=== PATIENT | male | born 1945 | race Caucasian/White ===

== ENCOUNTER → 2018-12-28 | Outpatient (CLI) | payer MEDICARE ==
--- NOTE | 2018-12-28 13:42 | XR ---
EXAMINATION TYPE: XR lumbosacral spine min 4V DATE OF EXAM: 12/28/2018 CLINICAL HISTORY: Acute low back pain after strain injury 2 days ago TECHNIQUE: Frontal, lateral, and oblique images of the lumbar spine are obtained. COMPARISON: None FINDINGS: There is dextroscoliosis of the lumbar spine. There are 5 lumbar type vertebral bodies maria eugenia ntified. Advanced degenerative disc disease is seen as multilevel intervertebral disc space narrowing , anterior osteophytes, facet arthropathy, and endplate sclerosis. There is mild retrolisthesis of L1 on L2. Posterior projecting osteophytes are seen throughout. Extensive atherosclerosis of the abdomi nal aorta with distal abdominal aortic aneurysm measuring at least 3.2 cm in anterior posterior dimen karoline. Oblique images demonstrate neural foraminal narrowing at all lumbar vertebral levels bilaterall y that would be more accurately assessed on MRI. IMPRESSION: 1. No acute fracture of the lumbar spine. 2. Advanced degenerative disc disease throughout the entirety of the lumbar spine with mild retrolist hesis of L1 on L2, likely on a degenerative basis. Neural foraminal narrowing is seen throughout the lumbar spine. 3. Mild dextroscoliosis of the lumbar spine.
== END ==
LOC: RADXRYALE 13:03
PROVIDERS: ATTEND Internal Medicine
DX: M48.061 Spinal stenosis, lumbar region without neurogenic claudication (principal); M51.36 Other intervertebral disc degeneration, lumbar region; M43.16 Spondylolisthesis, lumbar region; M41.86 Other forms of scoliosis, lumbar region
CPT/HCPCS: 72110

== ENCOUNTER → 2022-08-14 | Outpatient (CLI) | payer MEDICARE ==
[2022-08-14 15:22] LABS: Basophils # (A) 0.02 X 10*3/uL (0.00-0.10); Basophils % (A) 0.3 %; Eosinophils # (A) 0.19 X 10*3/uL (0.04-0.35); Eosinophils % (A) 3.2 %; HCT 36.5 % (39.6-50.0); HGB 11.3 g/dL (13.0-17.0); Immature Grans, Automated 0.5 %; Lymphocytes # (A) 1.67 X 10*3/uL (0.90-5.00); Lymphocytes % (A) 27.7 %; MCH 32.1 pg (27.0-32.0); MCV 103.7 fL (80.0-97.0); Mean Platelet Volume 10.7 fL (9.5-12.2); Monocytes # (A) 0.59 X 10*3/uL (0.20-1.00); Monocytes % (A) 9.8 %; NRBC Per 100 WBC 0 /100 WBCS (0.0-0.0); Neutrophils # (A) 3.52 X 10*3/uL (1.80-7.70); Neutrophils % (A) 58.5 %; Platelet Count 271 X 10*3/uL (140-440); RBC 3.52 X 10*6/uL (4.40-5.60); RDW 15.6 % (11.5-14.5); WBC 6.02 X 10*3/uL (4.50-10.00)
[2022-08-14 15:54] LABS: African American GFR (CKD) 55.8 (60.0-200.0); Anion Gap 8.3 mmol/L (10.00-18.00); BUN/Creat Ratio 18.07 Ratio (12.00-20.00); Blood Urea Nitrogen 25.3 mg/dL (9.0-27.0); Carbon Dioxide 23.7 mmol/L (20.0-27.5); Non-African American GFR(CKD) 48.1 (60.0-200.0); Potassium 5.3 mmol/L (3.5-5.5)
== END | disposition home or self-care (01) ==
LOC: LABPAT 10:24
PROVIDERS: ATTEND Urology
DX: Z01.818 Encounter for other preprocedural examination (principal); C61 Malignant neoplasm of prostate
CPT/HCPCS: 36415; 80048; 85025

== ENCOUNTER 2022-08-15 12:18 | Day surgery (SDC) | payer MEDICARE ==
--- NOTE | 2022-08-14 22:16 | P.GSHP ---
History of Present Illness H&P Date: 08/14/22 Chief Complaint: Prostate cancer The patient is a 76-year-old white male with recently diagnosed prostate cancer. His PSA level was 6.280. ADY revealed a small right-sided nodule. Prostate ultrasound revealed a prostate volume of 13 mL. 6 of 12 biopsies showed Leida 7 (3+4) adenocarcinoma. The Polaris score is 4.2. The patient has elected to be treated with radiation therapy and now comes for SpaceOAR implant to reduce the risk of rectal toxicity. - Cardiovascular Cardiovascular: Reports high blood pressure - Genitourinary (Male) Genitourinary: Reports nocturia Past Medical History Past Medical History: Coronary Artery Disease (CAD), Chest Pain / Angina, Hyperlipidemia, Hypertension, Myocardial Infarction (AR), Osteoarthritis (OA), Prostate Disorder Additional Past Medical History / Comment(s): has a bad valve, (hx of mrsa on valve [facility]) mrsa went throughout body affected many things per spouse. PSA elevated , prostate cancer -intermediate dx. has trouble with rt hand, hx diverticulitis, hernia Last Myocardial Infarction Date:: 2008 History of Any Multi-Drug Resistant Organisms: MRSA Date of last positivie culture/infection: 2017 MDRO Source:: blood Past Surgical History: Appendectomy, Bladder Surgery, Bowel Resection, Coronary Bypass/CABG, Heart Catheterization With Stent Additional Past Surgical History / Comment(s): 4-5 stents, triple bypass at 39 yrs old, prostate bx, colon resection due to diverticulitis, diverticulitis ate into bladder - repaired Past Anesthesia/Blood Transfusion Reactions: No Reported Reaction Additional Past Anesthesia/Blood Transfusion Reaction / Comment(s): blood tranfusion? no issues Date of Last Stent Placement:: 2021 Smoking Status: Current every day smoker - Past Family History Father Family Medical History: Coronary Artery Disease (CAD) Mother Family Medical History: Diabetes Mellitus Sister(s) Family Medical History: Diabetes Mellitus Brother(s) Family Medical History: Diabetes Mellitus Medications and Allergies Home Medications Medication Instructions Recorded Confirmed Type Acetaminophen [Tylenol Extra 500 mg PO DIRECTED PRN 08/13/22 08/13/22 History Strength] Aspirin 81 mg PO HS 08/13/22 08/13/22 History Clopidogrel [Plavix] 75 mg PO DAILY 08/13/22 08/13/22 History Isosorbide Mononitrate ER [Imdur] 60 mg PO DAILY 08/13/22 08/13/22 History Metoprolol Tartrate 12.5 mg PO BID 08/13/22 08/13/22 History Pravastatin Sodium 80 mg PO HS 08/13/22 08/13/22 History Ranolazine [Ranolazine ER] 1,000 mg PO BID 08/13/22 08/13/22 History Unk Iron 1 tab PO HS 08/13/22 08/13/22 History Unk Melatonin 1 tab PO HS 08/13/22 08/13/22 History Unk Stool Softner 1 tab PO HS 08/13/22 08/13/22 History lisinopriL [Prinivil] 10 mg PO DAILY 08/13/22 08/13/22 History Allergies Allergy/AdvReac Type Severity Reaction Status Date / Time latex Allergy Rash/Hives Verified 08/13/22 15:36 Surgical - Exam - General well developed, well nourished, no distress - Respiratory normal respiratory effort - Abdomen Abdomen: soft, non tender, no guarding, no rigid, no rebound - Genitourinary normal penis with no external lesions, testicles non-tender - Rectum Rectum: normal sphincter tone, no masses, other (Right-sided prostate nodule) - Psychiatric oriented to time, oriented to person, oriented to place, speech is normal, memory intact Assessment and Plan (1) Malignant neoplasm of prostate Status: Acute Code(s): C61 - MALIGNANT NEOPLASM OF PROSTATE SNOMED Code(s): 382991541 Plan: The SpaceOar implant has been reviewed in detail with the patient. He understands that the rationale for this is to create separation between the prostate and rectum, thus reducing the risk of radiation proctitis. The mate rial begins to breakdown 12-13 weeks following implant, and is reabsorbed by the body. Risks include anesthesia, bleeding, infection, and perineal discomfort. He understands that if the rectal wall is perforated the procedure will need to be aborted.
[2022-08-15 12:59] VITALS: TEMP 97
[2022-08-15] MEDS ORDERED: ONDANSETRON 4 MG/2 ML VIAL ONE (13:01)
[2022-08-15] MEDS ORDERED: LACTATED RINGERS 1,000 ML IV ONE (13:05)
[2022-08-15] MEDS ORDERED: DEXAMETHASONE SOD PHOSPHATE 4 MG/ML 1 ML VIAL IV ONE (13:15)
[2022-08-15] MEDS ORDERED: MIDAZOLAM 2 MG/2 ML VIAL ONE (14:24)
[2022-08-15] MEDS ORDERED: PROPOFOL 10 MG/ML 20 ML VIAL IV ONE (14:24)
[2022-08-15] MEDS ORDERED: fentaNYL (PF) 50 MCG/ML 2 ML AMP ONE (14:24)
[2022-08-15] MEDS ORDERED: LIDOCAINE 2% INJ 20 MG/ML SQ ONE ×2 (14:26→14:37)
--- NOTE | 2022-08-15 15:04 | P.OP ---
Date of Procedure: 08/15/22 Preoperative Diagnosis: Adenocarcinoma the prostate Postoperative Diagnosis: Same Procedure(s) Performed: SpaceOAR Implant Anesthesia: MAC Surgeon: Henri Snyder Estimated Blood Loss (ml): 5 IV fluids (ml): 400 Pathology: none sent Condition: stable Disposition: PACU Indications for Procedure: The patient is a 76-year-old white male with recently diagnosed prostate cancer. His PSA level was 6.280. ADY revealed a small right-sided nodule. Prostate ul trasound revealed a prostate volume of 13 mL. 6 of 12 biopsies showed Muse 7 (3+4) adenocarcinoma. The Polaris score is 4.2. The patient has elected to be treated with radiation therapy and now comes for SpaceOAR implant to reduce the risk of rectal toxicity. Operative Findings: Over 1 cm separation created between prostate and rectum. Description of Procedure: The patient was taken to the operating room and placed in the dorsolithotomy position, with his legs supported in Hari stirrups. The external genitalia was prepped and draped sterilely. The Bruel and Kjaer transrectal ultrasound probe was placed intrarectally. The prostate was imaged. The probe was then placed within the stabilizing stand. A spinal needle was advanced under ultrasonic guidance to the level of the urogenital diaphragm, and lidocaine was used to infiltrate the tissues as the needle was withdrawn. Next, the SpaceOAR needle was passed through the midline of the perineum, 1-2 cm anterior to the anal opening. The needle was slowly advanced under ultrasonic guidance until the needle tip was located within the fat plane between the prostate and rectum, at the level of the mid prostate gland. The needle was confirmed to be midline on the axial imaging. A small amount of normal saline was injected for hydrodissection. Next, the SpaceOAR components were mixed and loaded into the Y connector per protocol. The Y connector was then connected to the needle, and the components were injected slowly over a course of approximately 12 seconds. A total of 10 ml was injected. Significant distance was created between the prostate and rectum, as desired. It should be noted that at no point was there any concern of rectal perforation. The needle was withdrawn, as well as the transrectal ultrasound probe, and the procedure was terminated. The patient tolerated the procedure well and was taken to the recovery room in stable condition.
[2022-08-15 15:20] VITALS: BP 142/78; PULSE 64; RESP 18
== END 2022-08-15 15:30 | disposition home or self-care (01) ==
LOC: OR 12:18
PROVIDERS: ATTEND Urology
DX: C61 Malignant neoplasm of prostate (principal); I25.10 Atherosclerotic heart disease of native coronary artery without angina pectoris; I25.2 Old myocardial infarction; E78.5 Hyperlipidemia, unspecified; I10 Essential (primary) hypertension; F17.200 Nicotine dependence, unspecified, uncomplicated; Z90.49 Acquired absence of other specified parts of digestive tract; Z98.84 Bariatric surgery status; Z95.5 Presence of coronary angioplasty implant and graft; Z95.1 Presence of aortocoronary bypass graft; Z82.49 Family history of ischemic heart disease and other diseases of the circulatory system; Z83.3 Family history of diabetes mellitus; Z79.82 Long term (current) use of aspirin; Z79.02 Long term (current) use of antithrombotics/antiplatelets; Z79.899 Other long term (current) drug therapy; Z91.040 Latex allergy status
CPT/HCPCS: 55874; C1889; J2001; J2250; J1100; J0690; J2405; J3010; J2704

== ENCOUNTER → 2022-08-16 | Outpatient (CLI) | payer MEDICARE ==
--- NOTE | 2022-08-17 07:35 | MR ---
EXAMINATION TYPE: MR Prostate wo/w con DATE OF EXAM: 08/16/2022 COMPARISON: None. IMAGE QUALITY: Suboptimal but repeat not required. INDICATION: Elevated PSA, prostate cancer. PSA: 6.26 ng/ml on October 17, 2021 increased from 3.97 and 202 Recent Biopsy and Date: July 16, 2022 Pathology Report (If Applicable): Right lateral mid adenocarcinoma Leida grade 3+4 = 7, involving a pproximately 30% of the tissue and measures 2.5 mm in length. Right lateral apex adenocarcinoma, Glea son grade 3+4 = 7, involving 40% of tissue and measures 4 mm in length. Left lateral base adenocarcin ashley Leida grade 3+4 = 7, involving 90% of tissue measures 9 mm in length. Left base adenocarcinoma, Hughson grade 3+4 = 7, approximately 25% of tissue measures 2.5 mm in length, left lateral mid adeno carcinoma, Hughson grade 3+4 = 7, and approximately 40% of tissue measures 4 mm in length with focal periNeural invasion. Left mid adenocarcinoma Hughson grade 3+4 = 7, involving 20% of tissue measuring 2 mm in length., Left lateral apex atypical small asymmetric proliferation TECHNIQUE: Examination was performed using a 3T MRI without an endorectal coil. Multiparametric imaging was perf ormed with T2 mutliplanar sequences, axial diffusion weighted imaging and dynamic contrast enhanced i maging, utilizing 7 mL intravenous Gadavist gadolinium contrast. FINDINGS: Suboptimal with significant patient motion. PROSTATE VOLUME: 3.2 cm SI x 3.0 cm AP x 4.0 cm LR Vol= 20.1 cc PSA DENSITY: 0.31 ng/ml/cc Poor separation of peripheral and transitional zones with diffuse diminished T2 signal in the periphe ral zone. There is 5 mm focus of moderate diminished signal on ADC mapping the lateral left basal to mid zone showing mild increased signal on diffusion-weighted images image 136 series 705 additional a reas of moderately diminished signal on ADC mapping with mild to moderate increased signal on diffusi on-weighted imaging in the left mid zone and base are present. Poorly defined heterogeneous T2 hypoin tense transitional zone. There is posterior spacer. There is poor definition of the capsule along the left base. Seminal vesicles are grossly within normal limits. Urinary bladder shows mild to moderate wall trabeculation and mild wall thickening with several scatt ered diverticula including a prominent right-sided diverticula. No free fluid in the pelvis. No abnor mal bowel dilatation. Some diverticula in the sigmoid colon are present. Visualized osseous structure s are intact. IMPRESSION: Suboptimal study. Normal size prostate with concerning areas particularly throughout the left mid and basal aspects. Highest Assessment Category: 4 MRI Stage: T2a N0 M0 based on review of pelvic images. False negative rates for MRI range from 5-20% depending on risk profile. Assessment Categories: 1 ? Very low (clinically significant cancer is highly unlikely to be present) 2 ? Low (clinically significant cancer is unlikely to be present) 3 ? Intermediate (the presence of clinically significant cancer is equivocal) 4 ? High (clinically significant cancer is likely to be present) 5 ? Very high (clinically significant cancer is highly likely to be present)
== END | disposition home or self-care (01) ==
LOC: RADMRIMAIN 09:10
PROVIDERS: ATTEND Radiology Radiation Oncology
DX: C61 Malignant neoplasm of prostate (principal)
CPT/HCPCS: 72197; A9585

== ENCOUNTER → 2023-09-23 | Outpatient (CLI) | payer MEDICARE ==
[2023-09-23 19:50] LABS: Beta 2 Microglobulin 4.5 mg/L (0.61-2.37); Immunoglobulin M 75.7 mg/dL (40.0-280.0); Protein, Total 6.1 g/dL (6.2-8.2)
[2023-09-24 14:11] LABS: Free Kappa Lt Chain Qnt, Serum 6.47 mg/dL (0.33-1.94); Free Lambda Lt Chain Qnt, Seru 2.85 mg/dL (0.57-2.63)
== END | disposition home or self-care (01) ==
LOC: LABWHC1 13:26
PROVIDERS: ATTEND Internal Medicine
DX: N18.32 Chronic kidney disease, stage 3b (principal)
CPT/HCPCS: 36415; 82232; 82784; 82785; 83883; 84165; 86335

== ENCOUNTER → 2023-10-22 | Outpatient (CLI) | payer MEDICARE ==
--- NOTE | 2023-10-22 15:55 | US ---
EXAMINATION TYPE: US kidneys/renal and bladder DATE OF EXAM: 10/22/2023 COMPARISON: MRI prostate 08/16/2022 CLINICAL INDICATION: Male, 77 years old with history of R31.0 GROSS HEMATURIA; Gross hematuria. EXAM MEASUREMENTS: Right Kidney: 9.6 x 5.0 x 4.5 cm Left Kidney: 9.8 x 4.3 x 4.7 cm Right Kidney: Hyperechoic focus seen at mid: 0.3 x 0.5 x 0.2 cm. Left Kidney: No hydronephrosis or masses seen Bladder: Appears anechoic. Bilateral Jets seen: Yes Complex area seen near the bladder within the right pelvis measurin.6 x 3.7 x 3.2 cm. IMPRESSION: 1. No evidence for obstructive uropathy. 2. Nonobstructing right renal calculus. 3. Complex area of possible fluid in the right pelvis compatible with bladder diverticula seen on pr ior MRI.
== END | disposition home or self-care (01) ==
LOC: RADUSWWP 14:48
PROVIDERS: ATTEND Urology
DX: N20.0 Calculus of kidney (principal); R31.0 Gross hematuria
CPT/HCPCS: 76770

== ENCOUNTER 2023-11-28 04:05 | Inpatient (IN) | payer MEDICARE ==
[2023-11-28 04:32] LABS: Basophils # (A) 0.1 k/uL (0-0.2); Basophils % (A) 0 %; Eosinophils # (A) 0.1 k/uL (0-0.7); Eosinophils % (A) 0 %; HCT 29.1 % (39.0-53.0); HGB 9.2 gm/dL (13.0-17.5); Hypochromasia Marked; Lymphocytes # (A) 2.5 k/uL (1.0-4.8); Lymphocytes % (A) 20 %; MCHC 31.5 g/dL (31.0-37.0); MCV 95.1 fL (80.0-100.0); Mean Platelet Volume 8.3; Monocytes # (A) 0.5 k/uL (0-1.0); Monocytes % (A) 4 %; Neutrophils # (A) 9.6 k/uL (1.3-7.7); Neutrophils % (A) 74 %; Platelet Count 336 k/uL (150-450); RBC 3.06 m/uL (4.30-5.90); RDW 15.6 % (11.5-15.5); WBC 12.9 k/uL (3.8-10.6)
[2023-11-28] MEDS: IPRATROPIUM-ALBUTEROL 3 ML NEB INHALATION STA ×2 (04:39→06:08)
--- NOTE | 2023-11-28 04:46 | ED ---
SOB HPI - General Chief Complaint: Shortness of Breath Stated Complaint: Difficulty Breathing Time Seen by Provider: 11/28/23 04:09 Source: patient, EMS, RN notes reviewed, old records reviewed Mode of arrival: EMS Limitations: no limitations - History of Present Illness Initial Comments: This is a 77-year-old male to ER for evaluation of significant dyspnea shortness of breath history of asthma COPD. Patient has increased cough and congestion without chest pain patient states symptoms began last night before bed and have only progressed MD Complaint: shortness of breath, cough -: hour(s) Radiation: back Severity: moderate Severity scale (1-10): 3 Quality: aching, throbbing Consistency: constant Improves With: nothing Worsens With: nothing Known History Of: COPD, asthma, diabetes Associated Symptoms: denies other symptoms - Related Data Home Medications Medication Instructions Recorded Confirmed Aspirin 81 mg PO HS 08/13/22 11/28/23 Clopidogrel [Plavix] 75 mg PO DAILY 08/13/22 11/28/23 Metoprolol Tartrate 12.5 mg PO BID 08/13/22 11/28/23 Pravastatin Sodium 80 mg PO HS 08/13/22 11/28/23 Albuterol Sulfate [Albuterol 1 - 2 puff PO RT-Q6H PRN 11/28/23 11/28/23 Sulfate Hfa] Docusate Sodium [Dok] 100 mg PO DAILY PRN 11/28/23 11/28/23 Ferrous Sulfate [Feosol] 325 mg PO DAILY 11/28/23 11/28/23 Fluticasone/Umeclidin/Vilanter 1 puff INHALATION RT-DAILY 11/28/23 11/28/23 [Trelegy Ellipta 100-62.5-25] Hyaluronic Acid 850 mg PO DAILY 11/28/23 11/28/23 Loratadine [Claritin] 10 mg PO DAILY 11/28/23 11/28/23 Multivitamins, Thera [Multivitamin 1 tab PO DAILY 11/28/23 11/28/23 (formulary)] Ranolazine [Ranexa] 1,000 mg PO BID 11/28/23 11/28/23 Tamsulosin HCl [Flomax] 0.4 mg PO BID 11/28/23 11/28/23 Allergies Allergy/AdvReac Type Severity Reaction Status Date / Time latex Allergy Rash/Hives Verified 11/28/23 09:45 Review of Systems ROS Statement: Those systems with pertinent positive or pertinent negative responses have been documented in the HPI. ROS Other: All systems not noted in ROS Statement are negative. Past Medical History Past Medical History: Coronary Artery Disease (CAD), Chest Pain / Angina, Hyperlipidemia, Hypertension, Myocardial Infarction ([place]), Osteoarthritis (OA), Prostate Disorder Additional Past Medical History / Comment(s): has a bad valve, (hx of mrsa on valve [facility]) mrsa went throughout body affected many things per spouse. PSA elevated , prostate cancer -intermediate dx. has trouble with rt hand, hx diverticulitis, hernia Last Myocardial Infarction Date:: 2008 History of Any Multi-Drug Resistant Organisms: MRSA Date of last positivie culture/infection: 2017 MDRO Source:: blood Past Surgical History: Appendectomy, Bladder Surgery, Bowel Resection, Coronary Bypass/CABG, Heart Catheterization With Stent Additional Past Surgical History / Comment(s): 4-5 stents, triple bypass at 39yrs old, prostate bx, colon resection due to diverticulitis, diverticulitis ate into bladder - repaired Past Anesthesia/Blood Transfusion Reactions: No Reported Reaction Additional Past Anesthesia/Blood Transfusion Reaction / Comment(s): blood tranfusion? no issues Date of Last Stent Placement:: 2021 Past Psychological History: No Psychological Hx Reported Smoking Status: Current every day smoker Past Alcohol Use History: None Reported Past Drug Use History: None Reported - Past Family History Father Family Medical History: Coronary Artery Disease (CAD) Mother Family Medical History: Diabetes Mellitus Sister(s) Family Medical History: Diabetes Mellitus Brother(s) Family Medical History: Diabetes Mellitus General Exam Limitations: no limitations General appearance: alert, anxious, in distress Head exam: Present: atraumatic, normocephalic, normal inspection Eye exam: Present: normal appearance, PERRL, EOMI. Absent: scleral icterus, conjunctival injection, periorbital swelling ENT exam: Present: normal exam, mucous membranes moist Neck exam: Present: normal inspection. Absent: tenderness, meningismus, lymphadenopathy Respiratory exam: Present: respiratory distress, wheezes, rales, rhonchi, accessory muscle use, decreased breath sounds, prolonged expiratory. Absent: stridor Cardiovascular Exam: Present: regular rate, normal rhythm, normal heart sounds. Absent: systolic murmur, diastolic murmur, rubs, gallop, clicks GI/Abdominal exam: Present: soft, normal bowel sounds. Absent: distended, tenderness, guarding, rebound, rigid Extremities exam: Present: normal inspection, full ROM, normal capillary refill. Absent: tenderness, pedal edema, joint swelling, calf tenderness Back exam: Present: normal inspection Neurological exam: Present: alert, oriented X3, CN II-XII intact Psychiatric exam: Present: normal affect, normal mood Skin exam: Present: warm, dry, intact, normal color. Absent: rash Course Vital Signs 11/28/23 11/28/23 11/28/23 04:06 04:44 05:02 Temperature 98.1 F Pulse Rate 87 76 83 Pulse Rate [ Right] Respiratory 22 Rate Blood Pressure 170/69 Blood Pressure [Right Arm] O2 Sat by Pulse 94 L Oximetry 11/28/23 11/28/23 11/28/23 05:12 06:00 06:22 Temperature Pulse Rate 81 84 88 Pulse Rate [ Right] Respiratory 20 12 Rate Blood Pressure 108/65 91/56 Blood Pressure [Right Arm] O2 Sat by Pulse 94 L 93 L Oximetry 11/28/23 11/28/23 11/28/23 08:03 11:43 14:00 Temperature Pulse Rate 91 86 66 Pulse Rate [ Right] Respiratory 20 18 18 Rate Blood Pressure 157/76 135/72 100/51 Blood Pressure [Right Arm] O2 Sat by Pulse 93 L 93 L 93 L Oximetry 11/28/23 11/28/23 11/28/23 15:30 15:42 17:02 Temperature Pulse Rate 73 71 80 Pulse Rate [ Right] Respiratory 18 18 18 Rate Blood Pressure 156/79 Blood Pressure [Right Arm] O2 Sat by Pulse 97 96 Oximetry 11/28/23 17:17 Temperature 97.8 F Pulse Rate Pulse Rate [ 94 Right] Respiratory 18 Rate Blood Pressure Blood Pressure 170/70 [Right Arm] O2 Sat by Pulse 99 Oximetry - Reevaluation(s) Reevaluation #1: 11/28/23 06:33 Jake medical record is reviewed Reevaluation #2: 11/28/23 06:33 Patient symptoms are improving Reevaluation #3: 11/28/23 06:33 Informed of results questions answered Reevaluation #4: Was pt. sent in by a medical professional or institution (Dr., PA, ACCOUNTING MANAGER, urgent care, hospital, or [facility]...) When possible be specific @ -no Did you speak to anyone other than the patient for history (EMS, parent, family, police, friend...)? What history was obtained from this source @ -no Did you review nursing and triage notes (agree or disagree)? Why? @ -agree Are old charts reviewed (outside hosp., previous admission, EMS record, old EKG, old radiological studies, urgent care reports/EKG's, [facility] records)? Report findings @ -yes Differential Diagnosis (chest pain, altered mental status, abdominal pain women, abdominal pain men, vaginal bleeding, weakness, fever, dyspnea, syncope, headache, dizziness, GI bleed, back pain, seizure, CVA, palpatations, mental health, musculoskeletal)? @ -prior EKG interpreted by me (3pts min.). @ -yes X-rays interpreted by me (1pt min.). @ -yes positive for CHF CT interpreted by me (1pt min.). @ -no U/S interpreted by me (1pt. min.). @ -no What testing was considered but not performed or refused? (CT, X-rays, U/S, labs)? Why? @ -none What meds were considered but not given or refused? Why? @ -none Did you discuss the management of the patient with other professionals (professionals i.e. DOTTIE Quick, ACCOUNTING MANAGER, lab, RT, psych nurse, director of social services, manager pipeline, teacher, district fire management officer, special education case manager)? Give summary @ -no Was smoking cessation discussed for >3mins.? @ -no Was critical care preformed (if so, how long)? @ -yes31 Were there social determinants of health that impacted care today? How? (Homelessness, low income, unemployed, alcoholism, drug addiction, transportation, low edu. Level, literacy, decrease access to med. care, alf, rehab)? @ -none Was there de-escalation of care discussed even if they declined (Discuss DNR or withdrawal of care, Hospice)? DNR status @ -no What co-morbidities impacted this encounter? (DM, HTN, Smoking, COPD, CAD, Cancer, CVA, ARF, Chemo, Hep., AIDS, mental health diagnosis, sleep apnea, morbid obesity)? @ -none Was patient admitted / discharged? Hospital course, mention meds given and route, prescriptions, significant lab abnormalities, going to OR and other pertinent info. @ - 77 male will admit for significant COPD exacerbation and shortness of br eath patient has some findings of CHF, will admit for further supportive care patient showing severe hypoxia and respiratory failure Admitted Undiagnosed new problem with uncertain prognosis? @ -no Drug Therapy requiring intensive monitoring for toxicity (Heparin, Nitro, Insulin, Cardizem)? @ -no Were any procedures done? @ -no Diagnosis/symptom? @ -Respiratory failure and hypoxia COPD and CHF Acute, or Chronic, or Acute on Chronic? @ -Acute Uncomplicated (without systemic symptoms) or Complicated (systemic symptoms)? @ -Complicated Side effects of treatment? @ -no Exacerbation, Progression, or Severe Exacerbation? @ -exacerbation Poses a threat to life or bodily function? How? (Chest pain, [place], NH, pneumonia, PE, COPD, DKA, ARF, appy, cholecystitis, CVA, Diverticulitis, Homicidal, Suicidal, threat to staff... and all critical care pts) @ -yes respiratory failure Reevaluation #5: Differential Dyspnea: Coronary syndrome, arrhythmia, tamponade, asthma, COPD, pulmonary embolism, pneumonia, pneumothorax, pulmonary effusion, anaphylaxis, diabetic ketoacidosis, flailed chest, pulmonary contusion, diaphragmatic rupture, anemia, neuromuscular, this is not meant to be an all-inclusive list. - Consultations Consultation #1: Spoke with admitting physicians, [facility] who agreed to admit this patient Medical Decision Making - Medical Decision Making 77 male will admit for significant COPD exacerbation and shortness of breath patient has some findings of CHF, will admit for further supportive care patient showing severe hypoxia and respiratory failure - Lab Data Result diagrams: 11/30/23 17:59 11/30/23 03:13 Lab Results 11/28/23 11/28/23 11/28/23 Range/Units 04:14 04:14 04:14 WBC 12.9 H (3.8-10.6) k/uL RBC 3.06 L (4.30-5.90) m/uL Hgb 9.2 L (13.0-17.5) gm/dL Hct 29.1 L (39.0-53.0) % MCV 95.1 (80.0-100.0) fL MCH 30.0 (25.0-35.0) pg MCHC 31.5 (31.0-37.0) g/dL RDW 15.6 H (11.5-15.5) % Plt Count 336 (150-450) k/uL MPV 8.3 Neutrophils % 74 % Lymphocytes % 20 % Monocytes % 4 % Eosinophils % 0 % Basophils % 0 % Neutrophils # 9.6 H (1.3-7.7) k/uL Lymphocytes # 2.5 (1.0-4.8) k/uL Monocytes # 0.5 (0-1.0) k/uL Eosinophils # 0.1 (0-0.7) k/uL Basophils # 0.1 (0-0.2) k/uL Hypochromasia Marked PT 10.3 (10.0-12.5) sec INR 0.9 (<1.2) APTT 30.6 H (22.0-30.0) sec D-Dimer 1.33 H (<0.60) mg/L FEU Sodium 138 (137-145) mmol/L Potassium 6.0 H (3.5-5.1) mmol/L Chloride 110 H (98-107) mmol/L Carbon Dioxide 19 L (22-30) mmol/L Anion Gap 9 mmol/L BUN 33 H (9-20) mg/dL Creatinine 1.74 H (0.66-1.25) mg/dL Est GFR (CKD-EPI)AfAm 43 (>60 ml/min/1.73 sqM) Est GFR (CKD-EPI)NonAf 37 (>60 ml/min/1.73 sqM) Glucose 123 H (74-99) mg/dL Plasma Lactic Acid Chung (0.7-2.0) mmol/L Calcium 8.4 (8.4-10.2) mg/dL Magnesium 2.1 (1.6-2.3) mg/dL Total Bilirubin 0.9 (0.2-1.3) mg/dL AST 63 H (17-59) U/L ALT 24 (4-49) U/L Alkaline Phosphatase 43 (38-126) U/L Troponin I (0.000-0.034) ng/mL NT-Pro-B Natriuret Pep 648 pg/mL Total Protein 6.9 (6.3-8.2) g/dL Albumin 3.4 L (3.5-5.0) g/dL 11/28/23 11/28/23 Range/Units 04:14 04:14 WBC (3.8-10.6) k/uL RBC (4.30-5.90) m/uL Hgb (13.0-17.5) gm/dL Hct (39.0-53.0) % MCV (80.0-100.0) fL MCH (25.0-35.0) pg MCHC (31.0-37.0) g/dL RDW (11.5-15.5) % Plt Count (150-450) k/uL MPV Neutrophils % % Lymphocytes % % Monocytes % % Eosinophils % % Basophils % % Neutrophils # (1.3-7.7) k/uL Lymphocytes # (1.0-4.8) k/uL Monocytes # (0-1.0) k/uL Eosinophils # (0-0.7) k/uL Basophils # (0-0.2) k/uL Hypochromasia PT (10.0-12.5) sec INR (<1.2) APTT (22.0-30.0) sec D-Dimer (<0.60) mg/L FEU Sodium (137-145) mmol/L Potassium (3.5-5.1) mmol/L Chloride (98-107) mmol/L Carbon Dioxide (22-30) mmol/L Anion Gap mmol/L BUN (9-20) mg/dL Creatinine (0.66-1.25) mg/dL Est GFR (CKD-EPI)AfAm (>60 ml/min/1.73 sqM) Est GFR (CKD-EPI)NonAf (>60 ml/min/1.73 sqM) Glucose (74-99) mg/dL Plasma Lactic Acid Chung 1.6 (0.7-2.0) mmol/L Calcium (8.4-10.2) mg/dL Magnesium (1.6-2.3) mg/dL Total Bilirubin (0.2-1.3) mg/dL AST (17-59) U/L ALT (4-49) U/L Alkaline Phosphatase (38-126) U/L Troponin I 0.028 (0.000-0.034) ng/mL NT-Pro-B Natriuret Pep pg/mL Total Protein (6.3-8.2) g/dL Albumin (3.5-5.0) g/dL - EKG Data -: EKG Interpreted by Me (EKG is sinus 77 [place] 136 QRS 92 QTc 440) - Radiology Data Radiology results: report reviewed (Chest x-ray is negative for acute disease CTA), image reviewed Critical Care Time Critical Care Time: Yes Total Critical Care Time: 31 Disposition Clinical Impression: Acute exacerbation of chronic obstructive pulmonary disease, Systolic congestive heart failure, Hypoxia, Respiratory failure Disposition: ADMITTED IP TO THIS HOSP Condition: Serious Is patient prescribed a controlled substance at d/c from ED?: No Time of Disposition: 06:30
[2023-11-28 04:47] LABS: ALT 24 U/L (4-49); African American GFR (CKD) 43 (>60 ml/min/1.73 sqM); Anion Gap 9 mmol/L; Blood Urea Nitrogen 33 mg/dL (9-20); Calcium 8.4 mg/dL (8.4-10.2); Carbon Dioxide 19 mmol/L (22-30); Chloride 110 mmol/L (98-107); Glucose 123 mg/dL (74-99); Non-African American GFR(CKD) 37 (>60 ml/min/1.73 sqM); Sodium 138 mmol/L (137-145)
[2023-11-28 04:55] LABS: NT-Pro-B-Type Natriuretic Pept 648 pg/mL
[2023-11-28 05:04] LABS: AST 63 U/L (17-59); Albumin 3.4 g/dL (3.5-5.0); Alkaline Phosphatase 43 U/L (38-126); Magnesium 2.1 mg/dL (1.6-2.3); Total Bilirubin 0.9 mg/dL (0.2-1.3); Total Protein 6.9 g/dL (6.3-8.2)
[2023-11-28 05:26] LABS: INR 0.9 (<1.2); Partial Thromboplastin Time 30.6 sec (22.0-30.0); Prothrombin Time 10.3 sec (10.0-12.5)
[2023-11-28] MEDS: SODIUM CHLORIDE 0.9% 1,000 ML IV SCH ×2 (06:37→08:01)
[2023-11-28] MEDS: SODIUM CHLORIDE 0.9% 1,000 ML IV STA (06:39)
[2023-11-28] MEDS ORDERED: NALOXONE 0.4 MG/ML 1 ML VIAL IV PRN (07:00)
[2023-11-28] MEDS ORDERED: LORazepam 0.5 MG TAB PO PRN (07:00)
[2023-11-28] MEDS ORDERED: MORPHINE SULFATE 4 MG/ML SYRINGE IV PRN (07:00)
[2023-11-28] MEDS ORDERED: ONDANSETRON 4 MG/2 ML VIAL IVP PRN (07:00)
[2023-11-28] MEDS: methylPREDNISolone SOD SUCCI 125 MG/2 ML VIAL IV STA (08:01)
--- NOTE | 2023-11-28 08:14 | XR ---
EXAMINATION TYPE: XR chest 1V portable DATE OF EXAM: 11/28/2023 Comparison: None Clinical History: 77-year-old male sob Findings: Median sternotomy wires are present with post-CABG clips. Heart borderline enlarged. Increased inters titial densities especially in the lower lungs. No pleural effusion. Posterior thoracic spinal fusion hardware. Impression: Post-CABG changes. Borderline heart size and interstitial changes. Consider mild CHF.
--- NOTE | 2023-11-28 08:29 | CT ---
EXAMINATION TYPE: CT angio chest DATE OF EXAM: 11/28/2023 7:51 AM COMPARISON: None HISTORY: RODRIGO X [address] DLP: 330.5 mGycm Automated exposure control for dose reduction was used. CONTRAST: CTA scan of the thorax is performed without and with IV Contrast, patient injected with 100 ML mL of Isovue 370, pulmonary embolism protocol. . FINDINGS: LUNGS: Airway is patent and there is diffuse emphysematous changes. Subsegmental changes involving th e lungs for which atelectasis is favored over pneumonia but should be correlated clinically. No sizab le pleural effusion or pneumothorax. Calcification near the right hepatic capsular hemidiaphragm may be related to granuloma. There is a basilar and central bronchiectasis. There is a 3 mm nodule in the right lower lobe image 111. MEDIASTINUM: Suboptimal enhancement of the pulmonary arteries due to artifact and heterogeneous enhan cement. Assessment near the pulmonic valve limited due to artifact. There is no central pulmonary emb olism. Third order and distal branches are limited. Atherosclerotic change of the aorta. No aneurysm. No sizable pericardial effusion. Borderline mediastinal and hilar lymphadenopathy. The heart is enla rged. OTHER: Extensive postsurgical changes involving the vertebral, severe degenerative disc disease. Scl erotic changes in the midthoracic spine are nonspecific. If there is concern for infection or hardwar e abnormality correlate with MRI. Sternotomy wires and clips are noted. Reflux of contrast into the IVC and hepatic veins can be associated with elevated right heart pressur e or tricuspid insufficiency. Small hiatal hernia. Thickening of the adrenal glands. IMPRESSION: 1. Limited exam demonstrates no central pulmonary embolism. Distal branches are limited. 2. Diffuse emphysematous changes with basilar subsegmental atelectasis favored over pneumonia but pat uld be confirmed with clinical correlation. 3. Reflux of contrast into the hepatic vein and IVC can be associated with elevated right heart press ures or tricuspid insufficiency. 4 mm right lower lobe pulmonary nodule recommend 12 month follow-up cord is identified.
[2023-11-28] MEDS ORDERED: DOCUSATE 100 MG CAP PO PRN (11:00)
--- NOTE | 2023-11-28 11:07 | P.HPIM ---
History of Present Illness Patient pleasant 77-year-old male came with complaints of shortness of breath and patient is reporting clear dysfunction at this time patient does have history of COPD continues to smoke about 10 to 15 cigarettes/day. Patient was having some dry cough. Chest x-ray did not show any pneumonia CT angio of the chest was done which did not show pulmonary embolism but did show a 12 mm pulmonary nodule. Patient is feeling much better at this time after breathing treatments and systemic steroids. Patient was found to have elevated serum creatinine of 1.7 baseline is around 1.3-1.4 patient's serum potassium is high at 6 but it is a hemolyzed sample. REVIEW OF SYSTEMS: All other systems are negative except those mentioned in the HPI PHYSICAL EXAMINATION: GENERAL: The patient is alert and oriented x3, not in any acute distress. Well developed, well nourished. HEENT: Pupils are round and equally reacting to light. EOMI. No scleral icterus. No conjunctival pallor. Normocephalic, atraumatic. No pharyngeal erythema. No th yromegaly. CARDIOVASCULAR: S1 and S2 present. No murmurs, rubs, or gallops. PULMONARY: Significantly decreased air entry to bilateral lung reyes no wheezing or crackles were appreciated. ABDOMEN: Soft, nontender, nondistended, normoactive bowel sounds. No palpable organomegaly. MUSCULOSKELETAL: No joint swelling or deformity. EXTREMITIES: No cyanosis, clubbing, or pedal edema. NEUROLOGICAL: Gross neurological examination did not reveal any focal deficits. SKIN: No rashes. Assessment and plan -Acute hypoxic and hypercapnic respiratory failure secondary to COPD exacerbation nicotine cessation counseling was provided patient was started on systemic steroids and additional treatments and azithromycin. No evidence of pneumonia at this time -Pulmonary nodule follow-up as an outpatient -Hyperkalemia secondary to analysis repeat potassium again. Still high will use Lokelma and low potassium diet at the time patient is not on any medication that increases potassium -Acute renal failure on chronic kidney disease stage III IV fluids will be continued because of hyperchloremia patient will be switched to half-normal saline and these can be discontinued tomorrow -Coronary disease resumed on home medications -Benign prostatic hypertrophy -Hyperlipidemia -Hypertension -Continue nicotine use: Counseling was provided -GI prophylaxis Pepcid DVT prophylaxis: Subcutaneous heparin Past Medical History Past Medical History: Coronary Artery Disease (CAD), Chest Pain / Angina, Hyperlipidemia, Hypertension, Myocardial Infarction ([place]), Osteoarthritis (OA), Prostate Disorder Additional Past Medical History / Comment(s): has a bad valve, (hx of mrsa on valve [facility]) mrsa went throughout body affected many things per spouse. PSA elevated , prostate cancer -intermediate dx. has trouble with rt hand, hx divert iculitis, hernia Last Myocardial Infarction Date:: 2008 History of Any Multi-Drug Resistant Organisms: MRSA Date of last positivie culture/infection: 2017 MDRO Source:: blood Past Surgical History: Appendectomy, Bladder Surgery, Bowel Resection, Coronary Bypass/CABG, Heart Catheterization With Stent Additional Past Surgical History / Comment(s): 4-5 stents, triple bypass at 39yrs old, prostate bx, colon resection due to diverticulitis, diverticulitis ate into bladder - repaired Past Anesthesia/Blood Transfusion Reactions: No Reported Reaction Additional Past Anesthesia/Blood Transfusion Reaction / Comment(s): blood tranfusion? no issues Date of Last Stent Placement:: 2021 Past Psychological History: No Psychological Hx Reported Smoking Status: Current every day smoker Past Alcohol Use History: None Reported Past Drug Use History: None Reported - Past Family History Father Family Medical History: Coronary Artery Disease (CAD) Mother Family Medical History: Diabetes Mellitus Sister(s) Family Medical History: Diabetes Mellitus Brother(s) Family Medical History: Diabetes Mellitus Medications and Allergies Home Medications Medication Instructions Recorded Confirmed Type Aspirin 81 mg PO HS 08/13/22 11/28/23 History Clopidogrel [Plavix] 75 mg PO DAILY 08/13/22 11/28/23 History Metoprolol Tartrate 12.5 mg PO BID 08/13/22 11/28/23 History Pravastatin Sodium 80 mg PO HS 08/13/22 11/28/23 History Albuterol Sulfate [Albuterol 1 - 2 puff PO RT-Q6H PRN 11/28/23 11/28/23 History Sulfate Hfa] Docusate Sodium [Dok] 100 mg PO DAILY PRN 11/28/23 11/28/23 History Ferrous Sulfate [Feosol] 325 mg PO DAILY 11/28/23 11/28/23 History Fluticasone/Umeclidin/Vilanter 1 puff INHALATION RT-DAILY 11/28/23 11/28/23 History [Trelegy Ellipta 100-62.5-25] Hyaluronic Acid 850 mg PO DAILY 11/28/23 11/28/23 History Loratadine [Claritin] 10 mg PO DAILY 11/28/23 11/28/23 History Multivitamins, Thera [Multivitamin 1 tab PO DAILY 11/28/23 11/28/23 History (formulary)] Ranolazine [Ranexa] 1,000 mg PO BID 11/28/23 11/28/23 History Tamsulosin HCl [Flomax] 0.4 mg PO BID 11/28/23 11/28/23 History Allergies Allergy/AdvReac Type Severity Reaction Status Date / Time latex Allergy Rash/Hives Verified 11/28/23 09:45 Physical Exam Vitals: Vital Signs Temp Pulse Resp BP Pulse Ox 11/28/23 08:03 91 20 157/76 93 L 11/28/23 06:22 88 11/28/23 06:00 84 12 91/56 93 L 11/28/23 05:12 81 20 108/65 94 L 11/28/23 05:02 83 11/28/23 04:44 76 11/28/23 04:06 98.1 F 87 22 170/69 94 L Intake and Output 11/27/23 11/28/23 11/28/23 22:59 06:59 14:59 Other: Weight 65.317 kg Results CBC & Chem 7: 11/28/23 04:14 11/28/23 04:14 Labs: Abnormal Lab Results - Last 24 Hours (Table) 11/28/23 11/28/23 11/28/23 Range/Units 04:14 04:14 04:14 WBC 12.9 H (3.8-10.6) k/uL RBC 3.06 L (4.30-5.90) m/uL Hgb 9.2 L (13.0-17.5) gm/dL Hct 29.1 L (39.0-53.0) % RDW 15.6 H (11.5-15.5) % Neutrophils # 9.6 H (1.3-7.7) k/uL APTT 30.6 H (22.0-30.0) sec D-Dimer 1.33 H (<0.60) mg/L FEU Potassium 6.0 H (3.5-5.1) mmol/L Chloride 110 H (98-107) mmol/L Carbon Dioxide 19 L (22-30) mmol/L BUN 33 H (9-20) mg/dL Creatinine 1.74 H (0.66-1.25) mg/dL Glucose 123 H (74-99) mg/dL AST 63 H (17-59) U/L Albumin 3.4 L (3.5-5.0) g/dL
[2023-11-28] MEDS: IPRATROPIUM-ALBUTEROL 3 ML NEB INHALATION SCH (11:23)
[2023-11-28] MEDS: SODIUM CHLORIDE 0.45% 1,000 ML IV SCH (11:40)
[2023-11-28] MEDS: FAMOTIDINE 20 MG TAB PO SCH (11:40)
[2023-11-28] MEDS: AZITHROMYCIN 500 MG TAB PO SCH (11:40)
[2023-11-28] MEDS: TAMSULOSIN 0.4 MG CAP.ER.24H PO SCH (11:40)
[2023-11-28] MEDS: METOPROLOL TARTRATE 12.5 MG TAB PO SCH (11:40)
[2023-11-28] MEDS: CLOPIDOGREL 75 MG TAB PO SCH (11:40)
[2023-11-28] MEDS ORDERED: methylPREDNISolone SOD SUCCI 125 MG/2 ML VIAL IV SCH (12:00)
[2023-11-28] MEDS: ALBUTEROL NEBULIZED 2.5 MG/3 ML INHALATION SCH (12:14)
--- NOTE | 2023-11-28 13:05 | P.NPCON ---
History of Present Illness - Reason for Consult acute renal failure - History of Present Illness 77-year-old male with a past medical history of CAD, hyperlipidemia, COPD, hypertension, and OA presented to the ED due to dyspnea and shortness of breath. Nephrology consulted for YVROSE. Creatinine on admission was 1.74. Patient's baseline creatinine is 1.4- 1.5 Hypotensive on admission systolic 91 No NSAIDs noted on home med list. No MARTY inhibitor or ARB's noted in current home med list. Potassium was elevated 6.0, rechecked and found to be 4.6. Patient is voiding, bladder scan was 121 ml. IV fluids started Glucose was not elevated. No obvious GI bleed but patient reports having dark stools and take oral iron supplements. Past Medical History Past Medical History: Coronary Artery Disease (CAD), Chest Pain / Angina, Hyperlipidemia, Hypertension, Myocardial Infarction ([place]), Osteoarthritis (OA), Prostate Disorder Additional Past Medical History / Comment(s): has a bad valve, (hx of mrsa on valve [facility]) mrsa went throughout body affected many things per spouse. PSA elevated , prostate cancer -intermediate dx. has trouble with rt hand, hx diverticulitis, hernia Last Myocardial Infarction Date:: 2008 History of Any Multi-Drug Resistant Organisms: MRSA Date of last positivie culture/infection: 2017 MDRO Source:: blood Past Surgical History: Appendectomy, Bladder Surgery, Bowel Resection, Coronary Bypass/CABG, Heart Catheterization With Stent Additional Past Surgical History / Comment(s): 4-5 stents, triple bypass at 39yrs old, prostate bx, colon resection due to diverticulitis, diverticulitis ate into bladder - repaired Past Anesthesia/Blood Transfusion Reactions: No Reported Reaction Additional Past Anesthesia/Blood Transfusion Reaction / Comment(s): blood tranfusion? no issues Date of Last Stent Placement:: 2021 Past Psychological History: No Psychological Hx Reported Smoking Status: Current every day smoker Past Alcohol Use History: None Reported Past Drug Use History: None Reported - Past Family History Father Family Medical History: Coronary Artery Disease (CAD) Mother Family Medical History: Diabetes Mellitus Sister(s) Family Medical History: Diabetes Mellitus Brother(s) Family Medical History: Diabetes Mellitus Medications and Allergies Home Medications Medication Instructions Recorded Confirmed Type Aspirin 81 mg PO HS 08/13/22 11/28/23 History Clopidogrel [Plavix] 75 mg PO DAILY 08/13/22 11/28/23 History Metoprolol Tartrate 12.5 mg PO BID 08/13/22 11/28/23 History Pravastatin Sodium 80 mg PO HS 08/13/22 11/28/23 History Albuterol Sulfate [Albuterol 1 - 2 puff PO RT-Q6H PRN 11/28/23 11/28/23 History Sulfate Hfa] Docusate Sodium [Dok] 100 mg PO DAILY PRN 11/28/23 11/28/23 History Ferrous Sulfate [Feosol] 325 mg PO DAILY 11/28/23 11/28/23 History Fluticasone/Umeclidin/Vilanter 1 puff INHALATION RT-DAILY 11/28/23 11/28/23 History [Trelegy Ellipta 100-62.5-25] Hyaluronic Acid 850 mg PO DAILY 11/28/23 11/28/23 History Loratadine [Claritin] 10 mg PO DAILY 11/28/23 11/28/23 History Multivitamins, Thera [Multivitamin 1 tab PO DAILY 11/28/23 11/28/23 History (formulary)] Ranolazine [Ranexa] 1,000 mg PO BID 11/28/23 11/28/23 History Tamsulosin HCl [Flomax] 0.4 mg PO BID 11/28/23 11/28/23 History Allergies Allergy/AdvReac Type Severity Reaction Status Date / Time latex Allergy Rash/Hives Verified 11/28/23 09:45 Physical Exam Vitals: Vital Signs Temp Pulse Resp BP Pulse Ox 11/28/23 08:03 91 20 157/76 93 L 11/28/23 06:22 88 11/28/23 06:00 84 12 91/56 93 L 11/28/23 05:12 81 20 108/65 94 L 11/28/23 05:02 83 11/28/23 04:44 76 11/28/23 04:06 98.1 F 87 22 170/69 94 L Intake and Output 11/27/23 11/28/23 11/28/23 22:59 06:59 14:59 Other: Weight 65.317 kg General: non toxic, no distress, appears at stated age, normal weight Derm: no unusual rashes/lesions, warm Head: atraumatic, normocephalic, symmetric Eyes: EOMI, no lid lag, anicteric sclera, pupils equal round reactive to light ENT: Nose and ears atraumatic Neck: No cervical lymphadenopathy, trachea midline, supple Mouth: no lip lesion, mucus membranes moist Cardiovascular: S1S2 reg, no murmur, positive dorsalis pedis pulse bilateral, no edema Lungs: Decreased air entry bilaterally, no rhonchi, no rales, no accessory muscle use Abdominal: soft, nontender to palpation, no guarding Ext: muscle strength 5 out of 5 in all 4 extremities grossly, no gross muscle a trophy, no contractures Neuro: CN II-XI grossly intact, no gross focal neuro deficits Psych: Alert, oriented, appropriate affect Results - Lab Results Most recent lab results Calcium 8.4 mg/dL (8.4-10.2) 11/28/23 04:14 Magnesium 2.1 mg/dL (1.6-2.3) 11/28/23 04:14 11/29/23 02:58 11/28/23 11:37 Assessment and Plan Assessment: 1. YVROSE, potentially from hypotension, check u/a and u/s of kidneys, no nephrotoxic meds noted, pt was on marty-i at home? not noted on current med list. Maintained on IV fluids. 2. Hyperkalemia secondary to YVROSE, r/o GI bleed, blood sugar is not elevated, no urinary retention noted 3.CKD stage III A/B likely secondary to nephrosclerosis baseline cr 1.4- 1.5. 4. COPD in acute exacerbation 5. Non- chad metabolic acidosis 2/2 to YVROSE 6. anemia r/o iron deficiency 7. 4 mm R lung nodule Plan: - Continue IV fluids - Check iron profile - F/u on u/s and u/a - Avoid nephrotoxic agents - Repeat labs in the a.m. - Thank you for the consultation, we will continue to follow the patient. Patient is seen and examined with the resident. Agree with findings, assessment and plan.
--- NOTE | 2023-11-28 14:50 | P.CNPUL ---
History of Present Illness Consult date: 11/28/23 Reason for consult: dyspnea History of present illness: This is a 77-year-old male patient who came into the emergency department because of shortness of breath. The patient is known to me and the patient had an FEV1 of 64% of predicted consistent with moderate severe COPD. The patient is a chronic smoker the patient was started on Trelegy Ellipta 1 puff a day on outpatient basis and he was doing well over the past few months. Earlier this morning, the patient started having increased shortness of breath and increased dyspnea and cough and chest tightness and wheezing. Based on that, he was brought into the emergency department. Noted his to smoke around 10 to 15 cigarettes on a daily basis. In the ED, the patient's chest x-ray showed no evidence of a pneumonia. CT of the chest was done that showed emphysematous changes bilaterally with upper lobe predominance. No evidence of any pulmonary embolism. Nonspecific pulmonary nodule was also noted in the CAT scan of the chest measuring 4 mm in size and right lower lobe. The patient is currently on 2 L of oxygen by nasal cannula. The blood work shows a WBC of 12.9, it was 9.2 and a platelet count of 736. BUN 33 with a creatinine of 0.7. Noted the patient also has a potassium level of 6. He has been having issues with chronic kidney disease over the past 1 year. His previous creatinine was around 1.5. He is known to have prostate cancer the patient undergone insertion of radiation seeds by urology. He is on Flomax. He is producing urine output although his urine output is quite dark and concentrated. He is on normal saline at rate of 75 cc an hour. Although the Dilaudid she was on IV Solu-Medrol. He is also known to have coronary disease with previous bypass surgery. His troponins are 0.02, 0.02 and 0.01 respectively x 3. His hyperkalemia was managed and that he potassium level is normalized. The pathology has been consulted and the patient will have a bladder scan and ultrasound of the kidneys. Review of Systems Constitutional: Reports fatigue Eyes: denies as per HPI, denies blurred vision, denies bulging eye, denies decreased vision, denies diplopia, denies discharge, denies dry eye, denies irritation, denies itching, denies pain, denies photophobia, denies loss of peripheral vision, denies loss of vision, denies tunnel vision/blind spots Ears: deny: decreased hearing, ear discharge, earache, tinnitus Ears, nose, mouth and throat: Reports as per HPI Breasts: absent: as per HPI, gynecomastia Cardiovascular: Reports decreased exercise tolerance, Reports dyspnea on exe rtion Respiratory: Reports cough, Reports dyspnea, Reports wheezing Gastrointestinal: Reports as per HPI Genitourinary: Reports as per HPI Musculoskeletal: Reports as per HPI Musculoskeletal: absent: ankle pain, ankle stiffness, ankle swelling, as per HPI, elbow pain, elbow stiffness, elbow swelling, foot pain, foot stiffness, foot swelling, hand pain, hand stiffness, hand swelling, hip pain, hip stiffness, hip swelling, knee pain, knee stiffness, knee swelling, shoulder pain, shoulder stiffness, shoulder swelling, wrist pain, wrist stiffness, wrist swelling Integumentary: Reports as per HPI Neurological: Reports as per HPI Psychiatric: Reports as per HPI Endocrine: Reports as per HPI Hematologic/Lymphatic: Reports as per HPI Allergic/Immunologic: Reports as per HPI Past Medical History Past Medical History: Coronary Artery Disease (CAD), Chest Pain / Angina, Hyperlipidemia, Hypertension, Myocardial Infarction ([place]), Osteoarthritis (OA), Prostate Disorder Additional Past Medical History / Comment(s): has a bad valve, (hx of mrsa on valve [facility]) mrsa went throughout body affected many things per spouse. PSA elevated , prostate cancer -intermediate dx. has trouble with rt hand, hx diverticulitis, hernia Last Myocardial Infarction Date:: 2008 History of Any Multi-Drug Resistant Organisms: MRSA Date of last positivie culture/infection: 2017 MDRO Source:: blood Past Surgical History: Appendectomy, Bladder Surgery, Bowel Resection, Coronary Bypass/CABG, Heart Catheterization With Stent Additional Past Surgical History / Comment(s): 4-5 stents, triple bypass at 39yrs old, prostate bx, colon resection due to diverticulitis, diverticulitis ate into bladder - repaired Past Anesthesia/Blood Transfusion Reactions: No Reported Reaction Additional Past Anesthesia/Blood Transfusion Reaction / Comment(s): blood tranfusion? no issues Date of Last Stent Placement:: 2021 Past Psychological History: No Psychological Hx Reported Smoking Status: Current every day smoker Past Alcohol Use History: None Reported Past Drug Use History: None Reported - Past Family History Father Family Medical History: Coronary Artery Disease (CAD) Mother Family Medical History: Diabetes Mellitus Sister(s) Family Medical History: Diabetes Mellitus Brother(s) Family Medical History: Diabetes Mellitus Medications and Allergies Home Medications Medication Instructions Recorded Confirmed Type Aspirin 81 mg PO HS 08/13/22 11/28/23 History Clopidogrel [Plavix] 75 mg PO DAILY 08/13/22 11/28/23 History Metoprolol Tartrate 12.5 mg PO BID 08/13/22 11/28/23 History Pravastatin Sodium 80 mg PO HS 08/13/22 11/28/23 History Albuterol Sulfate [Albuterol 1 - 2 puff PO RT-Q6H PRN 11/28/23 11/28/23 History Sulfate Hfa] Docusate Sodium [Dok] 100 mg PO DAILY PRN 11/28/23 11/28/23 History Ferrous Sulfate [Feosol] 325 mg PO DAILY 11/28/23 11/28/23 History Fluticasone/Umeclidin/Vilanter 1 puff INHALATION RT-DAILY 11/28/23 11/28/23 History [Trelegy Ellipta 100-62.5-25] Hyaluronic Acid 850 mg PO DAILY 11/28/23 11/28/23 History Loratadine [Claritin] 10 mg PO DAILY 11/28/23 11/28/23 History Multivitamins, Thera [Multivitamin 1 tab PO DAILY 11/28/23 11/28/23 History (formulary)] Ranolazine [Ranexa] 1,000 mg PO BID 11/28/23 11/28/23 History Tamsulosin HCl [Flomax] 0.4 mg PO BID 11/28/23 11/28/23 History Allergies Allergy/AdvReac Type Severity Reaction Status Date / Time latex Allergy Rash/Hives Verified 11/28/23 09:45 Physical Exam Vitals: Vital Signs Temp Pulse Resp BP Pulse Ox 11/28/23 08:03 91 20 157/76 93 L 11/28/23 06:22 88 11/28/23 06:00 84 12 91/56 93 L 11/28/23 05:12 81 20 108/65 94 L 11/28/23 05:02 83 11/28/23 04:44 76 11/28/23 04:06 98.1 F 87 22 170/69 94 L Intake and Output 11/27/23 11/28/23 11/28/23 22:59 06:59 14:59 Other: Weight 65.317 kg The patient appeared well nourished and normally developed. Vital signs as documented. Head exam is unremarkable. No scleral icterus or corneal arcus note d. Neck is without jugular venous distension, thyromegaly, or carotid bruits. Carotid upstrokes are brisk bilaterally. Lungsdiminished breath sounds bilaterally along with scattered expiratory wheezes throughout the lung reyes. Cardiac exam reveals the PMI to be normally sized and situated. Rhythm is regular. First and second heart sounds normal. No murmurs, rubs or gallops. The patient had a thoracotomy scar over the anterior chest area. Abdominal exam reveals normal bowel sounds, no masses, no organomegaly and no aortic enlargement. Extremities are nonedematous and both femoral and pedal pulses are normal. Examination of the skin revealed no evidence of significant rashes, suspicious appearing nevi or other concerning lesions. Neurologically, the patient is awake and alert and the patient does not have any focal neurological deficit. Cranial nerves are essentially intact. Results - Laboratory Findings CBC and BMP: 11/28/23 04:14 11/28/23 11:37 PT/INR, D-dimer PT 10.3 sec (10.0-12.5) 11/28/23 04:14 INR 0.9 (<1.2) 11/28/23 04:14 D-Dimer 1.33 mg/L FEU (<0.60) H 11/28/23 04:14 Abnormal lab findings: Abnormal Labs 11/28/23 11/28/23 11/28/23 04:14 04:14 04:14 WBC 12.9 H RBC 3.06 L Hgb 9.2 L Hct 29.1 L RDW 15.6 H Neutrophils # 9.6 H APTT 30.6 H D-Dimer 1.33 H Potassium 6.0 H Chloride 110 H Carbon Dioxide 19 L BUN 33 H Creatinine 1.74 H Glucose 123 H AST 63 H Albumin 3.4 L - Diagnostic Findings Chest x-ray: image reviewed Assessment and Plan Plan: Acute exacerbation of COPD with secondary shortness of breath. Chest x-ray is negative. CT of the chest showed emphysema without evidence of pneumonia or or pulmonary embolism. Acute hypoxic respiratory failure the patient is currently on 2 L of oxygen by nasal cannula Coronary artery disease with previous bypass surgery History of smoking and the patient continues to smoke around 10 to 15 cigarettes on daily basis Hypertension Hyperlipidemia History of prostate cancer treated with radiation seeds within the prostate Chronic kidney disease stage III Acute hyperkalemia Anemia of chronic disease Plan Titrate oxygen flow to maintain saturation above 90% currently on 2 L Low the patient to use Trelegy Ellipta from home. For the time being the patient on Symbicort and DuoNeb nebulizers [id number] and IV Solu-Medrol Add Zithromax empiric basis, 500 mg p.o. daily Continue IV Solu-Medrol Bladder scan and ultrasound of the kidneys Hyperkalemia has been managed by nephrology currently on half-normal saline at rate of 75 cc an hour Continue Flomax Will obtain records of his previous echocardiogram. Cardiology has been consulted Will continue to follow
--- NOTE | 2023-11-28 15:24 | US ---
EXAMINATION TYPE: US kidneys/renal and bladder DATE OF EXAM: 11/28/2023 COMPARISON: 10/22/2023 CLINICAL INDICATION: Male, 77 years old with history of CKD EXAM MEASUREMENTS: Right Kidney: 9.8 x 4.1 x 3.7 cm Left Kidney: 10 x 4.8 x 3.7 cm Office Administrative Assistant notes: Incidental finding the left gallbladder with gallstones, borderline gallbladder wa ll thickness of 3 mm. CBD caliber 6 mm. Right Kidney: No hydronephrosis or masses seen Left Kidney: Hypoechoic area seen lower pole 2.2 x 2.1 x 2.4 cm. No hydronephrosis. Bladder: There is a 3.2 cm right posterior bladder wall diverticulum noted. Otherwise, the partially distended bladder shows no gross abnormality. Bilateral Jets seen: yes IMPRESSION: 1. No hydronephrosis. 2. A 2.4 cm hypoechoic area in the lower pole cortex of the left kidney could represent a prominent f etal lobulation. Possibly present on 10/22/2023 in retrospect. Six-month follow-up ultrasound to ensur e continued stability and exclude the possibility of an early solid mass. 3. Redemonstrated 3.2 cm diverticulum of the right posterior bladder wall. 4. Incidental cholelithiasis.
[2023-11-28 19:09] LABS: % Iron Saturation 2.78 (15.00-50.00)
[2023-11-28 20:53] LABS: Appearance,Urine Clear (Clear); Bilirubin,Urine Negative (Negative); Blood,Urine Negative (Negative); Color,Urine Light Yellow; Glucose,Urine (UA) Negative (Negative); Ketones,Urine Negative (Negative); Leukocyte Esterase,Urine Negative (Negative); Nitrite,Urine Negative (Negative); Protein,Urine Negative (Negative); Specific Gravity,Urine 1.025 (1.001-1.035); Urobilinogen,Urine <2.0 mg/dL (<2.0)
[2023-11-28] MEDS: methylPREDNISolone SOD SUCCI 40 MG/ML 1 ML VIAL IV SCH (21:15)
[2023-11-28] MEDS: RANOLAZINE 500 MG TAB.ER.12H PO SCH (21:15)
[2023-11-28] MEDS: ASPIRIN 81 MG PO SCH (21:15)
[2023-11-28] MEDS: PRAVASTATIN SODIUM 80 MG TAB PO SCH (21:15)
[2023-11-28] MEDS: HEPARIN SODIUM,PORCINE 5,000 UNIT/ML 1 ML VIAL SQ SCH (21:16)
[2023-11-29] MEDS: LORATADINE 10 MG TAB PO SCH (08:36)
[2023-11-29] MEDS: FAMOTIDINE 20 MG TAB PO SCH (08:37)
[2023-11-29] MEDS: SYMBICORT 80-4.5 MCG INHALER INHALATION SCH (08:46)
[2023-11-29] MEDS ORDERED: ENOXAPARIN 40 MG/0.4 ML SYRINGE SQ SCH (09:00)
[2023-11-29 09:08] LABS: Reticulocyte % 2.4 % (0.5-2.0)
[2023-11-29 09:26] LABS: LDH 197 U/L (120-246)
[2023-11-29 09:34] LABS: HCT 22.8 % (39.6-50.0); MCH 29.3 pg (27.0-32.0); MCHC 30.7 g/dL (32.0-37.0); MCV 95.4 FL (80.0-97.0); Mean Platelet Volume 10.8 FL (9.5-12.2); NRBC Per 100 WBC 0 X 10*3/uL (0.00-0.01); Platelet Count 278 X 10*3/uL (140-440); RBC 2.39 X 10*6/uL (4.40-5.60); RDW 15.9 % (11.5-14.5); WBC 21.51 X 10*3/uL (4.50-10.00)
--- NOTE | 2023-11-29 11:10 | P.CONS ---
History of Present Illness - Reason for Consult Consult date: 11/29/23 Normocytic normochromic anemia - Chief Complaint Dyspnea - History of Present Illness Mr. Delatorre is a 77-year-old gentleman with a past medical history significant for prostate cancer status post radiation therapy and Space OAR implants in 2022, CAD complicated by SD on aspirin and Plavix, and CKD stage III for whom we are consulted regarding normocytic normochromic anemia. He presented with incr eased dyspnea with chest x-ray showing no evidence of pneumonia, noting post CABG changes and mild cardiomegaly. Due to elevated D-dimer, CTA of the chest was obtained which revealed no evidence of pulmonary embolism, but did note diffuse emphysematous changes along with 4 mm right lower lobe pulmonary nodule. He has had significant improvement with IV steroids and nebulized breathing treatments. CBC on admission revealed hemoglobin 9.2 (MCV 95.1), WBC 12.9 (ANC 9.6), platelets 336. He was noted to have marked hypomastia. Iron profile revealed iron saturation of 2.78% with creatinine 1.74 (baseline 1.4-1.5), potassium of 6 with hemolysis and repeat potassium revealing 4.6, calcium 8.4, AST 63. Based on review of his labs, he had evidence of hemoglobin being between 9-11 since February 2019 with MCV's ranging in the normocytic to slightly macrocytic range. He was evaluated for intermittent leukocytosis in our clinic in late 2015 in early 2016 that was attributed to smoking and no further follow-up being needed at that time. Hemoglobin at that time was normal at 14.9 with ferritin of 88 and iron saturation of 27.4%. He did have protein electrophoresis and serum immunofixation in September 2023 revealed no evidence of monoclonal protein. Sandoval and lambda light chains were both elevated at 6.47 and 2.85 with a kappa to lambda ratio of 2.27. He was noted to have elevated IgE of 1014. IgG was normal at 5. Remaining immunoglobulin such as IgG, IgA, and IgM were normal. Clinically, he is feeling dramatically improved since admission and is now off of supplemental oxygen. He was taking iron daily, but does not recall the exact frequency. He denies any visible melena, hematochezia, or bright red blood per rectum currently, but notes having had occasional bright blood per rectum and hematuria in the past. Review of Systems 14 point review of systems was conducted with pertinent positives and negatives as noted per HPI Past Medical History Past Medical History: Coronary Artery Disease (CAD), Chest Pain / Angina, Hyperlipidemia, Hypertension, Myocardial Infarction ([place]), Osteoarthritis ([place]), Prostate Disorder Additional Past Medical History / Comment(s): has a bad valve, (hx of mrsa on valve [facility]) mrsa went throughout body affected many things per spouse. PSA elevated , prostate cancer -intermediate dx. has trouble with rt hand, hx diverticulitis, hernia Last Myocardial Infarction Date:: 2008 History of Any Multi-Drug Resistant Organisms: MRSA Year Discovered:: 2018 MDRO Source:: blood Past Surgical History: Appendectomy, Bladder Surgery, Bowel Resection, Coronary Bypass/CABG, Heart Catheterization With Stent Additional Past Surgical History / Comment(s): 4-5 stents, triple bypass at 39yrs old, prostate bx, colon resection due to diverticulitis, diverticulitis ate into bladder - repaired Past Anesthesia/Blood Transfusion Reactions: No Reported Reaction Additional Past Anesthesia/Blood Transfusion Reaction / Comm: blood tranfusion? no issues Date of Last Stent Placement:: 2021 Past Psychological History: No Psychological Hx Reported Smoking Status: Current every day smoker Past Alcohol Use History: None Reported Past Drug Use History: None Reported - Past Family History Father Family Medical History: Coronary Artery Disease (CAD) Mother Family Medical History: Diabetes Mellitus Sister(s) Family Medical History: Diabetes Mellitus Brother(s) Family Medical History: Diabetes Mellitus Medications and Allergies Home Medications Medication Instructions Recorded Confirmed Type Aspirin 81 mg PO HS 08/13/22 11/28/23 History Clopidogrel [Plavix] 75 mg PO DAILY 08/13/22 11/28/23 History Metoprolol Tartrate 12.5 mg PO BID 08/13/22 11/28/23 History Pravastatin Sodium 80 mg PO HS 08/13/22 11/28/23 History Albuterol Sulfate [Albuterol 1 - 2 puff PO RT-Q6H PRN 11/28/23 11/28/23 History Sulfate Hfa] Docusate Sodium [Dok] 100 mg PO DAILY PRN 11/28/23 11/28/23 History Ferrous Sulfate [Feosol] 325 mg PO DAILY 11/28/23 11/28/23 History Fluticasone/Umeclidin/Vilanter 1 puff INHALATION RT-DAILY 11/28/23 11/28/23 History [Aashish Rothmanta 100-62.5-25] Hyaluronic Acid 850 mg PO DAILY 11/28/23 11/28/23 History Loratadine [Claritin] 10 mg PO DAILY 11/28/23 11/28/23 History Multivitamins, Thera [Multivitamin 1 tab PO DAILY 11/28/23 11/28/23 History (formulary)] Ranolazine [Ranexa] 1,000 mg PO BID 11/28/23 11/28/23 History Tamsulosin HCl [Flomax] 0.4 mg PO BID 11/28/23 11/28/23 History Allergies Allergy/AdvReac Type Severity Reaction Status Date / Time latex Allergy Rash/Hives Verified 11/28/23 09:45 Physical Exam Vitals: Vital Signs Temp Pulse Pulse Resp BP BP Pulse Ox 11/29/23 04:00 98.2 F 76 18 115/58 96 11/29/23 00:00 98.6 F 89 20 129/69 95 11/28/23 20:19 78 11/28/23 20:08 75 11/28/23 20:00 97.7 F 75 18 156/75 97 11/28/23 17:17 97.8 F 94 18 170/70 99 11/28/23 17:02 80 18 156/79 96 11/28/23 15:42 71 18 11/28/23 15:30 73 18 97 11/28/23 14:00 66 18 100/51 93 L 11/28/23 11:43 86 18 135/72 93 L Intake and Output 11/28/23 11/29/23 11/29/23 22:59 06:59 14:59 Intake Total 457 118 Balance 457 118 Intake: Oral 457 118 Other: # Voids 2 Weight 66.7 kg - Constitutional General appearance: cooperative, no acute distress - EENT Eyes: EOMI - Respiratory Respiratory: bilateral: wheezing (Expiratory wheezing heard in both lung reyes bilaterally) - Cardiovascular Rhythm: regular - Gastrointestinal General gastrointestinal: no distended, normal bowel sounds, soft, no tenderness - Integumentary Large sternal scar from CABG Integumentary: pale - Neurologic Neurologic: CNII-XII intact - Psychiatric Tangential in conversation Psychiatric: A&O x's 3 Results CBC & Chem 7: 11/29/23 02:58 11/28/23 11:37 Labs: Abnormal Lab Results - Last 24 Hours (Table) 11/28/23 Range/Units 11:37 Iron 8 L (65-175) UG/DL % Saturation 2.78 L (15.00-50.00) Assessment and Plan (1) Normocytic normochromic anemia Current Visit: Yes Status: Chronic Code(s): D64.9 - ANEMIA, UNSPECIFIED SNOMED Code(s): 92656283 (2) Acute exacerbation of chronic obstructive pulmonary disease Current Visit: Yes Status: Acute Code(s): J44.1 - CHRONIC OBSTRUCTIVE PULMONARY DISEASE W (ACUTE) EXACERBATION SNOMED Code(s): 132603492 Plan: #Normocytic normochromic anemia -Noted to have hemoglobin of 9.2 on admission with MCV of 95.1 -Review of hemoglobins since 2019 have been between 9 and 11 with MCV being in the normocytic to slightly macrocytic range -Hemoglobin in February 2016 was normal at 14.9 -Iron saturation on admission was noted to be 2.78% -I am concerned he has iron deficiency given the low iron saturation and marked hypochromasia, which could be due to microscopic GI blood loss secondary to aspirin/plavix as well as occasional macroscopic blood loss per history obtained -He had monoclonal gammopathy workup in September 2023 that revealed no elevated monoclonal protein consistent with multiple myeloma -Elevated IgE is likely secondary to cigarette smoking or allergic/inflammatory disease as opposed to malignancy -Ferritin in addition to vitamin B12/methylmalonic acid, folic acid, thyroid profile, and hemolysis labs has been ordered to exclude other etiologies -He notes he was going to be discharged later today -If that is the case, he can be discharged from a hematology perspective and we can follow-up in the clinic to discuss IV iron -Oral iron sulfate 325 mg daily can be resumed #COPD exacerbation -Marked improvement in dyspnea since admission -Continue management per primary and pulmonology teams Kishore Douglas MD
[2023-11-29 11:36] LABS: BUN/Creat Ratio 22.25 Ratio (12.00-20.00); Blood Urea Nitrogen 26.7 mg/dL (9.0-27.0); Calcium 7.8 mg/dL (8.7-10.3); Carbon Dioxide 19.2 mmol/L (21.6-31.8); Chloride 109 mmol/L (96-109); Glucose 124 mg/dL (70-110); Potassium 4.7 mmol/L (3.5-5.5); Sodium 138 mmol/L (135-145)
[2023-11-29 12:42] LABS: T4, Free (Free Thyroxine) 1.23 ng/dL (0.78-2.19)
--- NOTE | 2023-11-29 13:38 | P.PN ---
Subjective Patient is seen for follow-up for acute kidney injury and hyperkalemia. Serum potassium has improved to 4.7 however hemoglobin has dropped to 7.0 g/dL. No active bleeding noted. No hydronephrosis noted on ultrasound. Objective - Vital Signs Vital signs: Vital Signs Temp 98.3 F 11/29/23 12:00 Pulse 74 11/29/23 12:00 Resp 16 11/29/23 12:00 BP 138/69 11/29/23 12:00 Pulse Ox 96 11/29/23 12:00 FiO2 Intake & Output 11/28/23 11/29/23 11/29/23 18:59 06:59 18:59 Intake Total 339 236 118 Output Total 575 Balance 339 236 -457 Weight 65.317 kg 66.7 kg Intake: Oral 339 236 118 Output: Urine 575 Other: # Voids 2 - Exam Patient is awake, comfortable, no acute distress. Examination of the heart S1 and S2 Examination of the lungs bilateral breath sounds are heard Abdomen is soft nontender Examination of lower extremities shows no significant edema [employer] exam grossly intact - Labs CBC & Chem 7: 11/29/23 02:58 11/29/23 02:58 Labs: Abnormal Lab Results - Last 24 Hours (Table) 11/28/23 11/29/23 11/29/23 Range/Units 11:37 02:58 02:58 WBC 21.51 H (4.50-10.00) X 10*3/uL RBC 2.39 L (4.40-5.60) X 10*6/uL Hgb 7.0 L (13.0-17.0) g/dL Hct 22.8 L (39.6-50.0) % MCHC 30.7 L (32.0-37.0) g/dL RDW 15.9 H (11.5-14.5) % Retic Count (0.5-2.0) % Haptoglobin (31.2-198.0) mg/dL Carbon Dioxide 19.2 L (21.6-31.8) mmol/L BUN/Creatinine Ratio 22.25 H (12.00-20.00) Ratio Glucose 124 H (70-110) mg/dL Calcium 7.8 L (8.7-10.3) mg/dL Iron 8 L (65-175) UG/DL % Saturation 2.78 L (15.00-50.00) TSH (0.465-4.680) mIU/L 11/29/23 11/29/23 11/29/23 Range/Units 08:43 08:48 08:48 WBC (4.50-10.00) X 10*3/uL RBC (4.40-5.60) X 10*6/uL Hgb (13.0-17.0) g/dL Hct (39.6-50.0) % MCHC (32.0-37.0) g/dL RDW (11.5-14.5) % Retic Count 2.4 H (0.5-2.0) % Haptoglobin 329.0 H (31.2-198.0) mg/dL Carbon Dioxide (21.6-31.8) mmol/L BUN/Creatinine Ratio (12.00-20.00) Ratio Glucose (70-110) mg/dL Calcium (8.7-10.3) mg/dL Iron (65-175) UG/DL % Saturation (15.00-50.00) TSH 0.270 L (0.465-4.680) mIU/L Assessment and Plan Assessment: 1. YVROSE, potentially from hypotension, UA is completely benign. No evidence of obstruction noted on ultrasound. No nephrotoxic meds noted, pt was on cathi-i at home? not noted on current med list. Maintained on IV fluids. Renal function has improved. 2. Hyperkalemia secondary to YVROSE, and most likely underlying GI bleed. Blood sugar is not elevated, no urinary retention noted 3. CKD stage III A/B likely secondary to nephrosclerosis baseline cr 1.4- 1.5. 4. COPD in acute exacerbation 5. Non- chad metabolic acidosis 2/2 to YVROSE 6. Anemia with underlying iron deficiency, most likely from GI bleed. 7. 4 mm R lung nodule Plan: Add IV iron Continue IV fluids Repeat labs in a.m.
--- NOTE | 2023-11-29 14:34 | P.PN ---
Subjective Progress Note Date: 11/29/23 This is a 77-year-old male patient who came into the emergency department because of shortness of breath. The patient is known to me and the patient had an FEV1 of 64% of predicted consistent with moderate severe COPD. The patient is a chronic smoker the patient was started on Trelegy Ellipta 1 puff a day on outpatient basis and he was doing well over the past few months. Earlier this morning, the patient started having increased shortness of breath and increased dyspnea and cough and chest tightness and wheezing. Based on that, he was brought into the emergency department. Noted his to smoke around 10 to 15 cigarettes on a daily basis. In the ED, the patient's chest x-ray showed no evidence of a pneumonia. CT of the chest was done that showed emphysematous changes bilaterally with upper lobe predominance. No evidence of any pulmonary embolism. Nonspecific pulmonary nodule was also noted in the CAT scan of the chest measuring 4 mm in size and right lower lobe. The patient is currently on 2 L of oxygen by nasal cannula. The blood work shows a WBC of 12.9, it was 9.2 and a platelet count of 736. BUN 33 with a creatinine of 0.7. Noted the patient also has a potassium level of 6. He has been having issues with chronic kidney disease over the past 1 year. His previous creatinine was around 1.5. He is known to have prostate cancer the patient undergone insertion of radiation seeds by urology. He is on Flomax. He is producing urine output although his urine output is quite dark and concentrated. He is on normal saline at rate of 75 cc an hour. Although the Dilaudid she was on IV Solu-Medrol. He is also known to have coronary disease with previous bypass surgery. His troponins are 0.02, 0.02 and 0.01 respectively x 3. His hyperkalemia was managed and that he potassium level is normalized. The pathology has been consulted and the patient will have a bladder scan and ultrasound of the kidneys. On 11/29/2023, the patient is being seen for a follow-up. Patient is currently being treated for an acute CF exacerbation. The patient is on DuoNeb the regimen is on the clock, Symbicort as maintenance and IV Solu-Medrol 40 mg every 12 hours. The patient has no new complaints. He feels much improved compared to yesterday. He was seen by hematology oncology regarding chronic normocytic anemia. The patient's hemoglobin is at 9.2 on admission with an MCV of 95. He is undergoing further workup regarding anemia and the patient was started on oral iron supplements. History of the exacerbation is being treated accordingly. On today's blood work, the hemoglobin is at 7.0 with a white cell count of 21.5 and a platelet count of 278. Reticulocyte count is at 2.4, haptoglobin is at 329, BUN is 26 with a creatinine of 1.2. UA is negative. Oxygenation is stable and the patient has been taken off the oxygen and the patient started on room air oxygen with a pulse ox of 96%. Objective - Vital Signs Vital signs: Vital Signs Temp 98.3 F 11/29/23 12:00 Pulse 74 11/29/23 12:00 Resp 16 11/29/23 12:00 BP 138/69 11/29/23 12:00 Pulse Ox 96 11/29/23 12:00 FiO2 Intake & Output 11/28/23 11/29/23 11/29/23 18:59 06:59 18:59 Intake Total 339 236 118 Output Total 575 Balance 339 236 -457 Weight 65.317 kg 66.7 kg Intake: Oral 339 236 118 Output: Urine 575 Other: # Voids 2 - Exam The patient appeared well nourished and normally developed. Vital signs as documented. Head exam is unremarkable. No scleral icterus or corneal arcus noted. Neck is without jugular venous distension, thyromegaly, or carotid bruits. Carotid upstrokes are brisk bilaterally. Lungsdiminished breath sounds bilaterally along with scattered expiratory wheezes throughout the lung reyes. Cardiac exam reveals the PMI to be normally sized and situated. Rhythm is regular. First and second heart sounds normal. No murmurs, rubs or gallops. The patient had a thoracotomy scar over the anterior chest area. Abdominal exam reveals normal bowel sounds, no masses, no organomegaly and no aortic enlargement. Extremities are nonedematous and both femoral and pedal pulses are normal. Examination of the skin revealed no evidence of significant rashes, suspicious appearing nevi or other concerning lesions. Neurologically, the patient is awake and alert and the patient does not have any focal neurological deficit. Cranial nerves are essentially intact. - Labs CBC & Chem 7: 11/29/23 02:58 11/29/23 02:58 Labs: Abnormal Lab Results - Last 24 Hours (Table) 11/28/23 11/29/23 11/29/23 Range/Units 11:37 02:58 02:58 WBC 21.51 H (4.50-10.00) X 10*3/uL RBC 2.39 L (4.40-5.60) X 10*6/uL Hgb 7.0 L (13.0-17.0) g/dL Hct 22.8 L (39.6-50.0) % MCHC 30.7 L (32.0-37.0) g/dL RDW 15.9 H (11.5-14.5) % Retic Count (0.5-2.0) % Haptoglobin (31.2-198.0) mg/dL Carbon Dioxide 19.2 L (21.6-31.8) mmol/L BUN/Creatinine Ratio 22.25 H (12.00-20.00) Ratio Glucose 124 H (70-110) mg/dL Calcium 7.8 L (8.7-10.3) mg/dL Iron 8 L (65-175) UG/DL % Saturation 2.78 L (15.00-50.00) TSH (0.465-4.680) mIU/L 11/29/23 11/29/23 11/29/23 Range/Units 08:43 08:48 08:48 WBC (4.50-10.00) X 10*3/uL RBC (4.40-5.60) X 10*6/uL Hgb (13.0-17.0) g/dL Hct (39.6-50.0) % MCHC (32.0-37.0) g/dL RDW (11.5-14.5) % Retic Count 2.4 H (0.5-2.0) % Haptoglobin 329.0 H (31.2-198.0) mg/dL Carbon Dioxide (21.6-31.8) mmol/L BUN/Creatinine Ratio (12.00-20.00) Ratio Glucose (70-110) mg/dL Calcium (8.7-10.3) mg/dL Iron (65-175) UG/DL % Saturation (15.00-50.00) TSH 0.270 L (0.465-4.680) mIU/L Assessment and Plan Plan: Acute exacerbation of COPD with secondary shortness of breath. Chest x-ray is negative. CT of the chest showed emphysema without evidence of pneumonia or or pulmonary embolism. Clinically improving room air oxygen Acute hypoxic respiratory failure the patient is currently on room air oxygen Coronary artery disease with previous bypass surgery History of smoking and the patient continues to smoke around 10 to 15 cigarettes on daily basis Hypertension Hyperlipidemia History of prostate cancer treated with radiation seeds within the prostate Acute on chronic kidney disease stage III, the acute component is improving Acute hyperkalemia, recovered Anemia of chronic disease, hemoglobin is at 7 and the patient was seen by hematology oncology Plan Titrate oxygen flow and the patient is currently on room air oxygen Continue Symbicort and DuoNeb nebulizers [id number] and IV Solu-Medrol Zithromax empiric basis, 500 mg p.o. daily Continue IV Solu-Medrol Ultrasound the kidneys showed no hydronephrosis. A 2.4 cm hypoechoic colonic lesion in the lower pole cortex of the left kidney for which a follow-up has been recommended. Another 3 cm diverticulum was seen in the posterior bladder wall. There was incidental cholelithiasis. Hyperkalemia has been managed by nephrology, potassium level is normalized currently on half-normal saline at rate of 75 cc an hour Continue Flomax Will obtain records of his previous echocardiogram. Cardiology has been consulted Will continue to follow
[2023-11-29] MEDS: methylPREDNISolone SOD SUCCI 125 MG/2 ML VIAL IV SCH (16:30)
[2023-11-29] MEDS: SODIUM FERRIC GLUCONAT-SUCROSE 125 MG in SODIUM CHLORIDE 0.9% 100 ML IVPB SCH (16:30)
[2023-11-29 16:43] LABS: Basophils % (A) 0 %; Eosinophils % (A) 0 %; HCT 25.5 % (39.0-53.0); Hypochromasia Marked; Lymphocytes # (A) 1.2 k/uL (1.0-4.8); Lymphocytes % (A) 5 %; MCH 29.6 pg (25.0-35.0); MCHC 30.8 g/dL (31.0-37.0); MCV 96.1 fL (80.0-100.0); Mean Platelet Volume 8.2; Monocytes # (A) 0.4 k/uL (0-1.0); Monocytes % (A) 2 %; Neutrophils # (A) 20.8 k/uL (1.3-7.7); Neutrophils % (A) 92 %; Platelet Count 355 k/uL (150-450); RBC 2.66 m/uL (4.30-5.90); RDW 15.7 % (11.5-15.5); WBC 22.5 k/uL (3.8-10.6)
[2023-11-29 16:45] LABS: HGB 7.9 gm/dL (13.0-17.5)
--- NOTE | 2023-11-29 17:35 | P.PN ---
Subjective Progress Note Date: 11/29/23 Patient pleasant 77-year-old male came with complaints of shortness of breath and patient is reporting clear dysfunction at this time patient does have history of COPD continues to smoke about 10 to 15 cigarettes/day. Patient was having some dry cough. Chest x-ray did not show any pneumonia CT angio of the chest was done which did not show pulmonary embolism but did show a 12 mm pulmonary nodule. Patient is feeling much better at this time after breathing treatments and systemic steroids. Patient was found to have elevated serum creatinine of 1.7 baseline is around 1.3-1.4 patient's serum potassium is high at 6 but it is a hemolyzed sample. 11/28 patient seen and examined at bedside. Patient notes no episodes of shortness of breath overnight. Denies chest pain, abd pain, or leg pain. WBC 2 1.51 hemoglobin 7 hematocrit 22.8 platelet 278. REVIEW OF SYSTEMS: All other systems are negative except those mentioned in the HPI PHYSICAL EXAMINATION: GENERAL: The patient is alert and oriented x3, not in any acute distress. Well developed, well nourished. HEENT: Pupils are round and equally reacting to light. EOMI. No scleral icterus. No conjunctival pallor. Normocephalic, atraumatic. No pharyngeal erythema. No thyromegaly. CARDIOVASCULAR: S1 and S2 present. No murmurs, rubs, or gallops. PULMONARY: mildly decreased air entry to bilateral lung reyes, wheezing in lower lung reyes ABDOMEN: Soft, nontender, nondistended, normoactive bowel sounds. No palpable organomegaly. MUSCULOSKELETAL: No joint swelling or deformity. EXTREMITIES: No cyanosis, clubbing, or pedal edema. NEUROLOGICAL: Gross neurological examination did not reveal any focal deficits. SKIN: No rashes. ASSESSMENT AND PLAN: #. Acute hypoxic and hypercapnic respiratory failure secondary to COPD exacerbation #. Current smoker #. Leukocytosis due to steroid use CT showed 12mm pulmonary nodule. Patient is stable and symptoms have improved. -nicotine cessation counseling was provided -per Pulmonology, c/w Symbicort and DuoNeb nebulizers [id number] and IV Solu-Medrol -azithromycin PO for empiric coverage. No evidence of pneumonia at this time -Monitor nodule as an outpatient for further work up # Normocytic anemia Patient is currently stable and asymptomatic. Hemoglobin dropped from 9.2 to 7. MCV 96. -Per hemeonc, may be due to iron deficiency from microscopic GI blood loss and macroscopic blood loss. Serum B12, methylmalonic acid, folic acid, thyroid profile and hemolysis labs for exclusion of other etiologies. Resume oral iron sulfate 325 mg p.o. OD. -Stool occult blood -Repeat CBC now then follow-up in 8 hours #. Hyperkalemia secondary to analysis, resolved patient is not on any medication that increases potassium. K now at 4.7 -BMP at AM #. Acute renal failure on chronic kidney disease stage III Chrloride now at 109. Negative fluid balance -d/c 0.45% NaCl. Return to 0.9% NaCl -BMP at AM #. Coronary disease resumed on home medications #. Benign prostatic hypertrophy #. Hyperlipidemia #. Hypertension GI prophylaxis Pepcid DVT prophylaxis: Subcutaneous heparin\ Attestation: I have personally seen and examined the patient with Resident, reviewed the documentation and participated and agree with the assessment and plan as written. Objective - Vital Signs Vital signs: Vital Signs Temp 98.2 F 11/29/23 04:00 Pulse 76 11/29/23 04:00 Resp 18 11/29/23 04:00 BP 115/58 11/29/23 04:00 Pulse Ox 96 11/29/23 04:00 FiO2 Intake & Output 11/28/23 11/29/23 11/29/23 18:59 06:59 18:59 Intake Total 339 236 Balance 339 236 Weight 65.317 kg 66.7 kg Intake: Oral 339 236 Other: # Voids 2 - Labs CBC & Chem 7: 11/30/23 03:13 11/29/23 02:58 Labs: Abnormal Lab Results - Last 24 Hours (Table) 11/28/23 Range/Units 11:37 Iron 8 L (65-175) UG/DL % Saturation 2.78 L (15.00-50.00)
[2023-11-29] MEDS: SODIUM CHLORIDE 0.9% 1,000 ML IV SCH (20:26)
[2023-11-29] MEDS: PANTOPRAZOLE 40 MG/10 ML VIAL IVP SCH (20:27)
[2023-11-29 23:43] LABS: Basophils % (A) 0 %; Eosinophils % (A) 0 %; HCT 23.7 % (39.0-53.0); HGB 7.4 gm/dL (13.0-17.5); Hypochromasia Marked; Lymphocytes # (A) 0.8 k/uL (1.0-4.8); Lymphocytes % (A) 4 %; MCH 30.1 pg (25.0-35.0); MCHC 31.2 g/dL (31.0-37.0); MCV 96.5 fL (80.0-100.0); Mean Platelet Volume 8.5; Monocytes # (A) 0.6 k/uL (0-1.0); Monocytes % (A) 3 %; Neutrophils # (A) 19.5 k/uL (1.3-7.7); Neutrophils % (A) 93 %; Platelet Count 329 k/uL (150-450); RBC 2.45 m/uL (4.30-5.90); RDW 15.8 % (11.5-15.5)
[2023-11-30 03:44] LABS: HCT 26.5 % (39.0-53.0); HGB 7.9 gm/dL (13.0-17.5); Hypochromasia Marked; MCH 28.7 pg (25.0-35.0); MCHC 29.8 g/dL (31.0-37.0); MCV 96.3 fL (80.0-100.0); Mean Platelet Volume 8.5; Platelet Count 359 k/uL (150-450); RBC 2.75 m/uL (4.30-5.90); RDW 15.8 % (11.5-15.5); WBC 20.4 k/uL (3.8-10.6)
[2023-11-30 10:00] LABS: BUN/Creat Ratio 20.86 Ratio (12.00-20.00); Blood Urea Nitrogen 29.2 mg/dL (9.0-27.0); Chloride 106 mmol/L (96-109); Glucose 123 mg/dL (70-110); Potassium 4.5 mmol/L (3.5-5.5); Sodium 137 mmol/L (135-145)
--- NOTE | 2023-11-30 12:27 | P.PN ---
Subjective Progress Note Date: 11/30/23 This is a 77-year-old male patient who came into the emergency department because of shortness of breath. The patient is known to me and the patient had an FEV1 of 64% of predicted consistent with moderate severe COPD. The patient is a chronic smoker the patient was started on Trelegy Ellipta 1 puff a day on outpatient basis and he was doing well over the past few months. Earlier this morning, the patient started having increased shortness of breath and increased dyspnea and cough and chest tightness and wheezing. Based on that, he was brought into the emergency department. Noted his to smoke around 10 to 15 cigarettes on a daily basis. In the ED, the patient's chest x-ray showed no evidence of a pneumonia. CT of the chest was done that showed emphysematous changes bilaterally with upper lobe predominance. No evidence of any pulmonary embolism. Nonspecific pulmonary nodule was also noted in the CAT scan of the chest measuring 4 mm in size and right lower lobe. The patient is currently on 2 L of oxygen by nasal cannula. The blood work shows a WBC of 12.9, it was 9.2 and a platelet count of 736. BUN 33 with a creatinine of 0.7. Noted the patient also has a potassium level of 6. He has been having issues with chronic kidney disease over the past 1 year. His previous creatinine was around 1.5. He is known to have prostate cancer the patient undergone insertion of radiation seeds by urology. He is on Flomax. He is producing urine output although his urine output is quite dark and concentrated. He is on normal saline at rate of 75 cc an hour. Although the Dilaudid she was on IV Solu-Medrol. He is also known to have coronary disease with previous bypass surgery. His troponins are 0.02, 0.02 and 0.01 respectively x 3. His hyperkalemia was managed and that he potassium level is normalized. The pathology has been consulted and the patient will have a bladder scan and ultrasound of the kidneys. On 11/29/2023, the patient is being seen for a follow-up. Patient is currently being treated for an acute CF exacerbation. The patient is on DuoNeb the regimen is on the clock, Symbicort as maintenance and IV Solu-Medrol 40 mg every 12 hours. The patient has no new complaints. He feels much improved compared to yesterday. He was seen by hematology oncology regarding chronic normocytic anemia. The patient's hemoglobin is at 9.2 on admission with an MCV of 95. He is undergoing further workup regarding anemia and the patient was started on oral iron supplements. History of the exacerbation is being treated accordingly. On today's blood work, the hemoglobin is at 7.0 with a white cell count of 21.5 and a platelet count of 278. Reticulocyte count is at 2.4, haptoglobin is at 329, BUN is 26 with a creatinine of 1.2. UA is negative. Oxygenation is stable and the patient has been taken off the oxygen and the patient started on room air oxygen with a pulse ox of 96%. 11/30/2023, the patient continues to be bronchospastic and wheezy and having exe rtional dyspnea. The white cell count of 20 with a hemoglobin 7.9 and platelet count of 359. BUN is 29 and creatinine is at 1.4. Creatinine has somewhat improved and as well as at 137. Remains on bronchodilators. Increase his Solu- Medrol dose to 60 mg every 6 hours and the patient utilizing Trelegy Ellipta from home. Objective - Vital Signs Vital signs: Vital Signs Temp 98.1 F 11/30/23 07:12 Pulse 106 H 11/30/23 09:13 Resp 18 11/30/23 07:12 BP 142/69 11/30/23 07:12 Pulse Ox 96 11/30/23 09:05 FiO2 Intake & Output 11/29/23 11/30/23 11/30/23 18:59 06:59 18:59 Intake Total 954 358 440 Output Total 575 500 Balance 379 358 -60 Weight 66.2 kg Intake: Intake, IV Titration 600 Amount Sodium Chloride 0.45% 1, 500 000 ml @ 75 mls/hr IV . [id number] PK Rx#:[id number] Sodium Ferric Gluconat- 100 Sucrose 125 mg In Sodium Chloride 0.9% 100 ml @ 100 mls/hr IVPB DAILY PK Rx#:[id number] Oral 354 358 440 Output: Urine 575 500 Other: # Voids 3 - Exam The patient appeared well nourished and normally developed. Vital signs as documented. Head exam is unremarkable. No scleral icterus or corneal arcus noted. Neck is without jugular venous distension, thyromegaly, or carotid bruits. Carotid upstrokes are brisk bilaterally. Lungsdiminished breath sounds bilaterally along with scattered expiratory wheezes throughout the lung reyes. Cardiac exam reveals the PMI to be normally sized and situated. Rhythm is regular. First and second heart sounds normal. No murmurs, rubs or gallops. The patient had a thoracotomy scar over the anterior chest area. Abdominal exam reveals normal bowel sounds, no masses, no organomegaly and no aortic enlargemen t. Extremities are nonedematous and both femoral and pedal pulses are normal. Examination of the skin revealed no evidence of significant rashes, suspicious appearing nevi or other concerning lesions. Neurologically, the patient is awake and alert and the patient does not have any focal neurological deficit. Cranial nerves are essentially intact. - Labs CBC & Chem 7: 11/30/23 03:13 11/30/23 03:13 Labs: Abnormal Lab Results - Last 24 Hours (Table) 11/29/23 11/29/23 11/29/23 Range/Units 02:58 08:48 16:09 WBC 22.5 H (3.8-10.6) k/uL RBC 2.66 L (4.30-5.90) m/uL Hgb 7.9 L (13.0-17.5) gm/dL Hct 25.5 L (39.0-53.0) % MCHC 30.8 L (31.0-37.0) g/dL RDW 15.7 H (11.5-15.5) % Neutrophils # 20.8 H (1.3-7.7) k/uL Lymphocytes # (1.0-4.8) k/uL Haptoglobin 329.0 H (31.2-198.0) mg/dL Carbon Dioxide 19.2 L (21.6-31.8) mmol/L BUN (9.0-27.0) mg/dL Est GFR (CKD-EPI) (>=60) BUN/Creatinine Ratio 22.25 H (12.00-20.00) Ratio Glucose 124 H (70-110) mg/dL Calcium 7.8 L (8.7-10.3) mg/dL 11/29/23 11/30/23 11/30/23 Range/Units 23:16 03:13 03:13 WBC 21.0 H 20.4 H (3.8-10.6) k/uL RBC 2.45 L 2.75 L (4.30-5.90) m/uL Hgb 7.4 L 7.9 L (13.0-17.5) gm/dL Hct 23.7 L 26.5 L (39.0-53.0) % MCHC 29.8 L (31.0-37.0) g/dL RDW 15.8 H 15.8 H (11.5-15.5) % Neutrophils # 19.5 H (1.3-7.7) k/uL Lymphocytes # 0.8 L (1.0-4.8) k/uL Haptoglobin (31.2-198.0) mg/dL Carbon Dioxide 19.0 L (21.6-31.8) mmol/L BUN 29.2 H (9.0-27.0) mg/dL Est GFR (CKD-EPI) 51 L (>=60) BUN/Creatinine Ratio 20.86 H (12.00-20.00) Ratio Glucose 123 H (70-110) mg/dL Calcium 8.0 L (8.7-10.3) mg/dL Assessment and Plan Plan: Acute exacerbation of COPD with secondary shortness of breath. Chest x-ray is negative. CT of the chest showed emphysema without evidence of pneumonia or or pulmonary embolism. Clinically improving room air oxygen Acute hypoxic respiratory failure the patient is currently on room air oxygen Coronary artery disease with previous bypass surgery History of smoking and the patient continues to smoke around 10 to 15 cigarettes on daily basis Hypertension Hyperlipidemia History of prostate cancer treated with radiation seeds within the prostate Acute on chronic kidney disease stage III, the acute component is improving Acute hyperkalemia, recovered Anemia of chronic disease, hemoglobin is at 7 and the patient was seen by hematology oncology Plan Still bronchospastic and wheezy and will continue same treatment for now. Titrate oxygen flow and the patient is currently on room air oxygen Continue Symbicort and DuoNeb nebulizers [id number] and IV Solu-Medrol at a dose of 60 mg IV every 6 hours Zithromax empiric basis, 500 mg p.o. daily Monitor renal function creatinine stable at 1.4 Ultrasound the kidneys showed no hydronephrosis. A 2.4 cm hypoechoic colonic [place] in the lower pole cortex of the left kidney for which a follow-up has been recommended. Another 3 cm diverticulum was seen in the posterior bladder wall. There was incidental cholelithiasis. Hyperkalemia has been managed by nephrology, potassium level is normalized currently on half-normal saline at rate of 75 cc an hour Continue Flomax Will obtain records of his previous echocardiogram. Cardiology has been consulted Will continue to follow
[2023-11-30 12:33] LABS: Prostate Specific Antigen 0.24 ng/mL (0.000-6.500)
--- NOTE | 2023-11-30 13:45 | P.PN ---
Subjective Progress Note Date: 11/30/23 Interval History: Patient pleasant 77-year-old male came with complaints of shortness of breath and patient is reporting clear dysfunction at this time patient does have history of COPD continues to smoke about 10 to 15 cigarettes/day. Patient was having some dry cough. Chest x-ray did not show any pneumonia CT angio of the chest was done which did not show pulmonary embolism but did show a 12 mm pulm onary nodule. Patient is feeling much better at this time after breathing treatments and systemic steroids. Patient was found to have elevated serum creatinine of 1.7 baseline is around 1.3-1.4 patient's serum potassium is high at 6 but it is a hemolyzed sample. 11/28 patient seen and examined at bedside. Patient notes no episodes of shortness of breath overnight. Denies chest pain, abd pain, or leg pain. WBC 21.51 hemoglobin 7 hematocrit 22.8 platelet 278. 11/30/2023 patient was seen and examined today.--- Complains of shortness breath and wheezing. WBCs 20, hemoglobin 7.9, platelet normal. Creatinine 1.4. Creatinine trending down. Patient remains on bronchodilator, pulmonary evaluate the patient today and increase Solu-Medrol to 60 mg every 6 hour. Assessment and plan: Acute hypoxic respiratory failure: Acute COPD exacerbation: History of smoking, current smoker Coronary artery disease status post CABG Hypertension Hyperlipidemia YVROSE on CKD likely Hyperkalemia: Resolved Anemia of chronic disease: History of prostate cancer treated with radiation seeds within the prostate: Respiratory status gradually improving, still short of breath and wheezy, oxygenation improved to room air, will continue Symbicort, DuoNeb, IV Solu- Medrol, azithromycin empirically. Pulmonary following Monitor kidney function, creatinine stable, nephrology consulted, ultrasound renal showed no hydronephrosis, incidental cholelithiasis Hyperkalemia is improved, on IV fluids Continue Flomax Cardiology consulted Hemoglobin stable, no sign or symptom of active bleed, hematology consulted. DVT prophylaxis: Subcutaneous heparin PHYSICAL EXAMINATION: GENERAL: The patient is A&O x3, NAD HEENT: EOMI, Sclerae anicteric, Moist Mucous membranes Neck: Supple, Non tender, No JVD PULMONARY: Decreased breath souds B/L, bilateral wheezing, No crackles. CARDIOVASCULAR: S1, S2 present. No murmurs, rubs, or gallops. ABDOMEN: Soft, nontender, nondistended, normoactive bowel sounds. No guarding or rebound tenderness. MUSCULOSKELETAL: No edema, No cyanosis. No clubbing. Normal ROM. Intact peripher al pulses. EXTREMITIES: No cyanosis, clubbing, or pedal edema. NEUROLOGICAL: CN 2-12 grossly intact. No FND Skin: No Rash REVIEW OF SYSTEMS: CONSTITUTIONAL: No fever or chills. CARDIOVASCULAR: No chest pain, palpitations or syncope. PULMONARY: Complains of shortness of breath, wheezing. GASTROINTESTINAL: No nausea, vomiting, diarrhea, abdominal pain. : No Dysuria, urgency, frequency. Extremities: No edema. NEUROLOGICAL: No headaches, no weakness, or numbness Dictation was produced using [employer] dictation software. please excuse any grammatical, word or spelling errors. Objective - Vital Signs Vital signs: Vital Signs Temp 98.2 F 11/30/23 12:00 Pulse 94 11/30/23 12:27 Resp 18 11/30/23 12:00 BP 149/71 11/30/23 12:00 Pulse Ox 92 L 11/30/23 12:00 FiO2 Intake & Output 11/29/23 11/30/23 11/30/23 18:59 06:59 18:59 Intake Total 954 358 440 Output Total 575 500 Balance 379 358 -60 Weight 66.2 kg Intake: Intake, IV Titration 600 Amount Sodium Chloride 0.45% 1, 500 000 ml @ 75 mls/hr IV . [id number] [facility] Rx#:[id number] Sodium Ferric Gluconat- 100 Sucrose 125 mg In Sodium Chloride 0.9% 100 ml @ 100 mls/hr IVPB DAILY PK Rx#:[id number] Oral 354 358 440 Output: Urine 575 500 Other: # Voids 3 - Labs CBC & Chem 7: 11/30/23 03:13 11/30/23 03:13 Labs: Abnormal Lab Results - Last 24 Hours (Table) 11/29/23 11/29/23 11/29/23 Range/Units 08:43 16:09 23:16 WBC 22.5 H 21.0 H (3.8-10.6) k/uL RBC 2.66 L 2.45 L (4.30-5.90) m/uL Hgb 7.9 L 7.4 L (13.0-17.5) gm/dL Hct 25.5 L 23.7 L (39.0-53.0) % MCHC 30.8 L (31.0-37.0) g/dL RDW 15.7 H 15.8 H (11.5-15.5) % Neutrophils # 20.8 H 19.5 H (1.3-7.7) k/uL Lymphocytes # 0.8 L (1.0-4.8) k/uL Carbon Dioxide (21.6-31.8) mmol/L BUN (9.0-27.0) mg/dL Est GFR (CKD-EPI) (>=60) BUN/Creatinine Ratio (12.00-20.00) Ratio Glucose (70-110) mg/dL Calcium (8.7-10.3) mg/dL Vitamin B12 973.0 H (200.0-944.0) pg/mL 11/30/23 11/30/23 Range/Units 03:13 03:13 WBC 20.4 H (3.8-10.6) k/uL RBC 2.75 L (4.30-5.90) m/uL Hgb 7.9 L (13.0-17.5) gm/dL Hct 26.5 L (39.0-53.0) % MCHC 29.8 L (31.0-37.0) g/dL RDW 15.8 H (11.5-15.5) % Neutrophils # (1.3-7.7) k/uL Lymphocytes # (1.0-4.8) k/uL Carbon Dioxide 19.0 L (21.6-31.8) mmol/L BUN 29.2 H (9.0-27.0) mg/dL Est GFR (CKD-EPI) 51 L (>=60) BUN/Creatinine Ratio 20.86 H (12.00-20.00) Ratio Glucose 123 H (70-110) mg/dL Calcium 8.0 L (8.7-10.3) mg/dL Vitamin B12 (200.0-944.0) pg/mL
[2023-11-30 17:37] LABS: Glucose,Whole Blood 186 mg/dL (70-110)
[2023-11-30 17:56] LABS: Glucose,Whole Blood 169 mg/dL (70-110)
[2023-11-30 18:03] LABS: Basophils % (A) 0 %; Eosinophils % (A) 0 %; HCT 22.9 % (39.0-53.0); Hypochromasia Marked; Lymphocytes % (A) 5 %; MCH 33.3 pg (25.0-35.0); MCHC 34.3 g/dL (31.0-37.0); MCV 96.8 fL (80.0-100.0); Monocytes # (A) 0.6 k/uL (0-1.0); Monocytes % (A) 3 %; Neutrophils # (A) 19.2 k/uL (1.3-7.7); Neutrophils % (A) 92 %; Platelet Count 355 k/uL (150-450); RBC 2.37 m/uL (4.30-5.90); RDW 15.7 % (11.5-15.5)
[2023-11-30 18:05] LABS: HGB 7.9 gm/dL (13.0-17.5)
[2023-12-01 00:53] LABS: Basophils % (A) 0 %; Eosinophils % (A) 0 %; HCT 22.3 % (39.0-53.0); HGB 7.3 gm/dL (13.0-17.5); Hypochromasia Moderate; Lymphocytes % (A) 6 %; MCH 30.9 pg (25.0-35.0); MCHC 32.6 g/dL (31.0-37.0); MCV 94.6 fL (80.0-100.0); Mean Platelet Volume 8.6; Monocytes # (A) 0.5 k/uL (0-1.0); Monocytes % (A) 3 %; Neutrophils # (A) 15.6 k/uL (1.3-7.7); Neutrophils % (A) 90 %; Platelet Count 286 k/uL (150-450); Poikilocytosis Slight; RBC 2.36 m/uL (4.30-5.90); RDW 15.7 % (11.5-15.5); WBC 17.3 k/uL (3.8-10.6)
[2023-12-01 06:44] LABS: Basophils % (A) 0 %; Eosinophils % (A) 0 %; HCT 26.1 % (39.0-53.0); HGB 8.4 gm/dL (13.0-17.5); Hypochromasia Slight; Lymphocytes # (A) 1.3 k/uL (1.0-4.8); Lymphocytes % (A) 7 %; MCH 30.4 pg (25.0-35.0); MCHC 32.3 g/dL (31.0-37.0); MCV 94.1 fL (80.0-100.0); Mean Platelet Volume 8.3; Monocytes # (A) 0.8 k/uL (0-1.0); Monocytes % (A) 4 %; Neutrophils # (A) 15.6 k/uL (1.3-7.7); Neutrophils % (A) 87 %; Platelet Count 256 k/uL (150-450); Poikilocytosis Slight; RBC 2.77 m/uL (4.30-5.90); RDW 15.4 % (11.5-15.5); WBC 17.9 k/uL (3.8-10.6)
[2023-12-01 06:52] LABS: African American GFR (CKD) 53 (>60 ml/min/1.73 sqM); Anion Gap 6 mmol/L; Blood Urea Nitrogen 43 mg/dL (9-20); Calcium 7.5 mg/dL (8.4-10.2); Carbon Dioxide 19 mmol/L (22-30); Chloride 113 mmol/L (98-107); Glucose 128 mg/dL (74-99); Non-African American GFR(CKD) 45 (>60 ml/min/1.73 sqM); Potassium 4.4 mmol/L (3.5-5.1); Sodium 138 mmol/L (137-145)
--- NOTE | 2023-12-01 08:22 | P.PN ---
Subjective Patient is seen in follow-up for acute kidney injury on chronic kidney disease. Renal function stable. On IV fluids. Received 2 units of blood in the last 24 hours due to active GI bleed. Hemodynamically stable. Vital signs are stable. General: No acute distress. HEENT: Head exam is unremarkable. On nasal cannula. LUNGS: Scattered rhonchi. HEART: Rate and Rhythm are regular. ABDOMEN: Nontender. EXTREMITITES: No edema. Objective - Vital Signs Vital signs: Vital Signs Temp 98.5 F 12/01/23 03:15 Pulse 67 12/01/23 05:45 Resp 18 12/01/23 05:45 BP 107/60 12/01/23 05:45 Pulse Ox 91 L 12/01/23 05:45 FiO2 Intake & Output 11/30/23 12/01/23 12/01/23 18:59 06:59 18:59 Intake Total 558 2479 Output Total 600 250 150 Balance -42 2229 -150 Weight 66 kg 68.6 kg Intake: IV 225 Sodium Chloride 0.9% 1, 225 000 ml @ 75 mls/hr IV . [id number] [facility] Rx#:[id number] Oral 558 1014 Blood Product 0 1240 Rc As-1 Unit 310 [id number] Rc As-1 Unit 0 310 [id number] Output: Urine 600 250 150 Other: Voiding Method Urinal # Voids 4 # Bowel Movements 0 1 - Labs CBC & Chem 7: 12/01/23 06:15 12/01/23 06:15 Labs: Abnormal Lab Results - Last 24 Hours (Table) 11/29/23 11/30/23 11/30/23 Range/Units 08:43 03:13 17:26 WBC (3.8-10.6) k/uL RBC (4.30-5.90) m/uL Hgb (13.0-17.5) gm/dL Hct (39.0-53.0) % RDW (11.5-15.5) % Neutrophils # (1.3-7.7) k/uL Chloride (98-107) mmol/L Carbon Dioxide 19.0 L (21.6-31.8) mmol/L BUN 29.2 H (9.0-27.0) mg/dL Creatinine (0.66-1.25) mg/dL Est GFR (CKD-EPI) 51 L (>=60) BUN/Creatinine Ratio 20.86 H (12.00-20.00) Ratio Glucose 123 H (70-110) mg/dL POC Glucose (mg/dL) 186 H (70-110) mg/dL Calcium 8.0 L (8.7-10.3) mg/dL Vitamin B12 973.0 H (200.0-944.0) pg/mL Crossmatch 11/30/23 11/30/23 11/30/23 Range/Units 17:34 17:54 17:59 WBC 21.0 H (3.8-10.6) k/uL RBC 2.37 L (4.30-5.90) m/uL Hgb 7.9 L (13.0-17.5) gm/dL Hct 22.9 L (39.0-53.0) % RDW 15.7 H (11.5-15.5) % Neutrophils # 19.2 H (1.3-7.7) k/uL Chloride (98-107) mmol/L Carbon Dioxide (21.6-31.8) mmol/L BUN (9.0-27.0) mg/dL Creatinine (0.66-1.25) mg/dL Est GFR (CKD-EPI) (>=60) BUN/Creatinine Ratio (12.00-20.00) Ratio Glucose (70-110) mg/dL POC Glucose (mg/dL) 169 H (70-110) mg/dL Calcium (8.7-10.3) mg/dL Vitamin B12 (200.0-944.0) pg/mL Crossmatch See Detail 12/01/23 12/01/23 12/01/23 Range/Units 00:31 06:15 06:15 WBC 17.3 H 17.9 H (3.8-10.6) k/uL RBC 2.36 L 2.77 L (4.30-5.90) m/uL Hgb 7.3 L 8.4 L (13.0-17.5) gm/dL Hct 22.3 L 26.1 L (39.0-53.0) % RDW 15.7 H (11.5-15.5) % Neutrophils # 15.6 H 15.6 H (1.3-7.7) k/uL Chloride 113 H (98-107) mmol/L Carbon Dioxide 19 L (21.6-31.8) mmol/L BUN 43 H (9.0-27.0) mg/dL Creatinine 1.46 H (0.66-1.25) mg/dL Est GFR (CKD-EPI) (>=60) BUN/Creatinine Ratio (12.00-20.00) Ratio Glucose 128 H (70-110) mg/dL POC Glucose (mg/dL) (70-110) mg/dL Calcium 7.5 L (8.7-10.3) mg/dL Vitamin B12 (200.0-944.0) pg/mL Crossmatch Assessment and Plan Plan: Assessment: 1. Acute kidney injury secondary to ATN secondary to hypotension. Creatinine stable at 1.46 today. UA benign. No hydronephrosis noted on kidney ultrasound. 2. Acute GI bleed status post blood transfusions this admission. Surgery consulted. Receiving IV iron. 3. Chronic kidney disease stage IIIb with baseline creatinine 1.4-1.5 secondary to nephrosclerosis. 4. Metabolic acidosis secondary to IV fluids. Plan: Hep-Lock IV fluids. Check chest x-ray tomorrow morning. IV DDAVP x 1 dose today. Add Aranesp.
[2023-12-01] MEDS: DESMOPRESSIN ACETATE 20 MCG in SODIUM CHLORIDE 0.9% 50 ML IVPB ONE (09:16)
[2023-12-01] MEDS: DARBEPOETIN ALFA 40 MCG/0.4 ML SYRINGE SQ SCH (09:57)
--- NOTE | 2023-12-01 12:18 | P.PN ---
Subjective Progress Note Date: 12/01/23 Principal diagnosis: anemia Pt seen in ICU at todays visit. Pt reports he had gretchen blood in stool yesterday; nursing reports dark maroon skyla with clots overnight. Pt states dk athing has significantly improved. S/p 2 units PRBCs since admit. Hgb 8.4 today Objective - Vital Signs Vital signs: Vital Signs Temp 98.5 F 12/01/23 03:15 Pulse 92 12/01/23 09:18 Resp 18 12/01/23 08:00 BP 107/60 12/01/23 05:45 Pulse Ox 91 L 12/01/23 05:45 FiO2 Intake & Output 11/30/23 12/01/23 12/01/23 18:59 06:59 18:59 Intake Total 558 2479 Output Total 600 250 350 Balance -42 2229 -350 Weight 66 kg 68.6 kg Intake: IV 225 Sodium Chloride 0.9% 1, 225 000 ml @ 75 mls/hr IV . [id number] [facility] Rx#:[id number] Oral 558 1014 Blood Product 0 1240 Rc As-1 Unit 310 [id number] Rc As-1 Unit 0 310 [id number] Output: Urine 600 250 350 Other: Voiding Method Urinal Urinal # Voids 4 # Bowel Movements 0 1 - Constitutional General appearance: Present: no acute distress - EENT Eyes: Present: anicteric sclerae, EOMI ENT: Present: hearing grossly normal - Respiratory Details: breathing is even and unlabored - Cardiovascular Details: skin warm and dry - Gastrointestinal General gastrointestinal: Present: soft. Absent: tenderness - Integumentary Integumentary: Present: pale. Absent: cyanotic - Musculoskeletal Musculoskeletal: Present: strength equal bilaterally - Psychiatric Psychiatric: Present: A&O x's 3 - Labs CBC & Chem 7: 12/01/23 06:15 12/01/23 06:15 Labs: Abnormal Lab Results - Last 24 Hours (Table) 11/29/23 11/30/23 11/30/23 Range/Units 08:43 17:26 17:34 WBC (3.8-10.6) k/uL RBC (4.30-5.90) m/uL Hgb (13.0-17.5) gm/dL Hct (39.0-53.0) % RDW (11.5-15.5) % Neutrophils # (1.3-7.7) k/uL Chloride (98-107) mmol/L Carbon Dioxide (22-30) mmol/L BUN (9-20) mg/dL Creatinine (0.66-1.25) mg/dL Glucose (74-99) mg/dL POC Glucose (mg/dL) 186 H (70-110) mg/dL Calcium (8.4-10.2) mg/dL Vitamin B12 973.0 H (200.0-944.0) pg/mL Crossmatch See Detail 11/30/23 11/30/23 12/01/23 Range/Units 17:54 17:59 00:31 WBC 21.0 H 17.3 H (3.8-10.6) k/uL RBC 2.37 L 2.36 L (4.30-5.90) m/uL Hgb 7.9 L 7.3 L (13.0-17.5) gm/dL Hct 22.9 L 22.3 L (39.0-53.0) % RDW 15.7 H 15.7 H (11.5-15.5) % Neutrophils # 19.2 H 15.6 H (1.3-7.7) k/uL Chloride (98-107) mmol/L Carbon Dioxide (22-30) mmol/L BUN (9-20) mg/dL Creatinine (0.66-1.25) mg/dL Glucose (74-99) mg/dL POC Glucose (mg/dL) 169 H (70-110) mg/dL Calcium (8.4-10.2) mg/dL Vitamin B12 (200.0-944.0) pg/mL Crossmatch 12/01/23 12/01/23 Range/Units 06:15 06:15 WBC 17.9 H (3.8-10.6) k/uL RBC 2.77 L (4.30-5.90) m/uL Hgb 8.4 L (13.0-17.5) gm/dL Hct 26.1 L (39.0-53.0) % RDW (11.5-15.5) % Neutrophils # 15.6 H (1.3-7.7) k/uL Chloride 113 H (98-107) mmol/L Carbon Dioxide 19 L (22-30) mmol/L BUN 43 H (9-20) mg/dL Creatinine 1.46 H (0.66-1.25) mg/dL Glucose 128 H (74-99) mg/dL POC Glucose (mg/dL) (70-110) mg/dL Calcium 7.5 L (8.4-10.2) mg/dL Vitamin B12 (200.0-944.0) pg/mL Crossmatch Assessment and Plan (1) Acute exacerbation of chronic obstructive pulmonary disease Current Visit: Yes Status: Acute Priority: High Code(s): J44.1 - CHRONIC OBSTRUCTIVE PULMONARY DISEASE W (ACUTE) EXACERBATION SNOMED Code(s): 413384610 (2) GI bleed Current Visit: Yes Status: Acute Priority: High Code(s): K92.2 - GASTROINTESTINAL HEMORRHAGE, UNSPECIFIED SNOMED Code(s): 25794999 (3) Normocytic normochromic anemia Current Visit: Yes Status: Chronic Priority: High Code(s): D64.9 - ANEMIA, UNSPECIFIED SNOMED Code(s): 51699333 Plan: #Normocytic normochromic anemia -Noted to have hemoglobin of 9.2 on admission with MCV of 95.1 -Review of hemoglobins since 2019 have been between 9 and 11 with MCV being in the normocytic to slightly macrocytic range -Hemoglobin in February 2016 was normal at 14.9 -Iron saturation on admission was noted to be 2.78% -I am concerned he has iron deficiency given the low iron saturation and marked hypochromasia, which could be due to microscopic GI blood loss secondary to as pirin/plavix as well as occasional macroscopic blood loss per history obtained -He had monoclonal gammopathy workup in September 2023 that revealed no elevated monoclonal protein consistent with multiple myeloma -Elevated IgE is likely secondary to cigarette smoking or allergic/inflammatory disease as opposed to malignancy -Ferritin in addition to vitamin B12/methylmalonic acid, folic acid, thyroid pro file, and hemolysis labs has been ordered to exclude other etiologies -Workup negative for hemolysis. Iron deficiency noted, parenteral iron ordered -History of prostate cancer. PSA checked, stable at 0.24 -Hematochezia noted yesterday with dark stools with clots overnight. S/p 2 units since admit, hgb 8.4 today -Anticoagulation held -General surgery consulted -Continue to monitor CBC. Transfuse for hgb less than 7 or if symptomatic #COPD exacerbation -Marked improvement in dyspnea since admission -Continue management per primary and pulmonology teams
--- NOTE | 2023-12-01 12:56 | P.CON ---
Consult Note - . Consult date: 12/01/23 Assessment/Plan:: This is a 77-year-old male who presented to [facility] ER for evaluation of significant dyspnea and shortness of breath. He has a history of asthma and COPD. Patient has increased cough and congestion without chest pain patient and states sym ptoms began last night before bed and have only progressed. His imaging did not reveal any evidence of PNA or PE. He was noted to have a normocytic anemia. During this hospitalization he has had bloody bowel movements with blood clots. The patient's hgb dropped from 9.2 to 7.9. The patient received 2 units PRBCs and his hgb is 8.4. The patient has a history of diverticulitis with colon resection. He states he is overdue for a colonoscopy. Review of Systems ROS Statement: Those systems with pertinent positive or pertinent negative responses have been documented in the HPI. Past Medical History Past Medical History: Coronary Artery Disease (CAD), Chest Pain / Angina, Hyperlipidemia, Hypertension, Myocardial Infarction (HI), Osteoarthritis (OA), Prostate Disorder Additional Past Medical History / Comment(s): has a bad valve, (hx of mrsa on valve [facility]) mrsa went throughout body affected many things per spouse. PSA elevated , prostate cancer -intermediate dx. has trouble with rt hand, hx diverticulitis, hernia Last Myocardial Infarction Date:: 2008 History of Any Multi-Drug Resistant Organisms: MRSA Date of last positivie culture/infection: 2017 MDRO Source:: blood Past Surgical History: Appendectomy, Bladder Surgery, Bowel Resection, Coronary Bypass/CABG, Heart Catheterization With Stent Additional Past Surgical History / Comment(s): 4-5 stents, triple bypass at 39yrs old, prostate bx, colon resection due to diverticulitis, diverticulitis ate into bladder - repaired Past Anesthesia/Blood Transfusion Reactions: No Reported Reaction Additional Past Anesthesia/Blood Transfusion Reaction / Comment(s): blood tranfusion? no issues Date of Last Stent Placement:: 2021 Past Psychological History: No Psychological Hx Reported Smoking Status: Current every day smoker Past Alcohol Use History: None Reported Past Drug Use History: None Reported - Past Family History Father Family Medical History: Coronary Artery Disease (CAD) Mother Family Medical History: Diabetes Mellitus Sister(s) Family Medical History: Diabetes Mellitus Brother(s) Family Medical History: Diabetes Mellitus General Exam Limitations: no limitations General appearance: alert, anxious, in distress Head exam: Present: atraumatic, normocephalic, normal inspection Eye exam: Present: normal appearance, PERRL, EOMI. Absent: scleral icterus, conjunctival injection, periorbital swelling ENT exam: Present: normal exam, mucous membranes moist Neck exam: Present: normal inspection. Absent: tenderness, meningismus, lymphadenopathy Respiratory exam: Present: respiratory distress, wheezes, rales, rhonchi, accessory muscle use, decreased breath sounds, prolonged expiratory. Absent: stridor Cardiovascular Exam: Present: regular rate, normal rhythm, normal heart sounds. Absent: systolic murmur, diastolic murmur, rubs, gallop, clicks GI/Abdominal exam: Present: soft, normal bowel sounds. Absent: distended, tenderness, guarding, rebound, rigid Extremities exam: Present: normal inspection, full ROM, normal capillary refill. Absent: tenderness, pedal edema, joint swelling, calf tenderness Back exam: Present: normal inspection Neurological exam: Present: alert, oriented X3, CN II-XII intact Psychiatric exam: Present: normal affect, normal mood Skin exam: Present: warm, dry, intact, normal color. Absent: rash 77 year old male with GIB -s/p 2 units PRBCs. Hgb stable this AM -will plan for EGD/Colonoscopy tomorrow 12/01 -Golytely prep today -CLD, NPO midnight -AM labs Quoc Villalpando DO [facility] [phone]
--- NOTE | 2023-12-01 13:27 | P.PN ---
Subjective Progress Note Date: 12/01/23 Principal diagnosis: Acute exacerbation of COPD This is a 77-year-old male patient who came into the emergency department because of shortness of breath. The patient is known to me and the patient had an FEV1 of 64% of predicted consistent with moderate severe COPD. The patient is a chronic smoker the patient was started on Trelegy Ellipta 1 puff a day on outpatient basis and he was doing well over the past few months. Earlier this morning, the patient started having increased shortness of breath and increased dyspnea and cough and chest tightness and wheezing. Based on that, he was brought into the emergency department. Noted his to smoke around 10 to 15 cigarettes on a daily basis. In the ED, the patient's chest x-ray showed no evidence of a pneumonia. CT of the chest was done that showed emphysematous changes bilaterally with upper lobe predominance. No evidence of any pulmonary embolism. Nonspecific pulmonary nodule was also noted in the CAT scan of the chest measuring 4 mm in size and right lower lobe. The patient is currently on 2 L of oxygen by nasal cannula. The blood work shows a WBC of 12.9, it was 9.2 and a platelet count of 736. BUN 33 with a creatinine of 0.7. Noted the patient also has a potassium level of 6. He has been having issues with chronic kidney disease over the past 1 year. His previous creatinine was around 1.5. He is known to have prostate cancer the patient undergone insertion of radiation seeds by urology. He is on Flomax. He is producing urine output although his urine output is quite dark and concentrated. He is on normal saline at rate of 75 cc an hour. Although the Dilaudid she was on IV Solu-Medrol. He is also known to have coronary disease with previous bypass surgery. His troponins are 0.02, 0.02 and 0.01 respectively x 3. His hyperkalemia was managed and that he potassium level is normalized. The pathology has been consulted and the patient will have a bladder scan and ultrasound of the kidneys. On 11/29/2023, the patient is being seen for a follow-up. Patient is currently being treated for an acute CF exacerbation. The patient is on DuoNeb the regimen is on the clock, Symbicort as maintenance and IV Solu-Medrol 40 mg every 12 hours. The patient has no new complaints. He feels much improved compared to yesterday. He was seen by hematology oncology regarding chronic normocytic anemia. The patient's hemoglobin is at 9.2 on admission with an MCV of 95. He is undergoing further workup regarding anemia and the patient was started on oral iron supplements. History of the exacerbation is being treated accordingly. On today's blood work, the hemoglobin is at 7.0 with a white cell count of 21.5 and a platelet count of 278. Reticulocyte count is at 2.4, haptoglobin is at 329, BUN is 26 with a creatinine of 1.2. UA is negative. Oxygenation is stable and the patient has been taken off the oxygen and the patient started on room air oxygen with a pulse ox of 96%. 11/30/2023, the patient continues to be bronchospastic and wheezy and having exertional dyspnea. The white cell count of 20 with a hemoglobin 7.9 and platelet count of 359. BUN is 29 and creatinine is at 1.4. Creatinine has somewhat improved and as well as at 137. Remains on bronchodilators. Increase his Solu-Medrol dose to 60 mg every 6 hours and the patient utilizing Trelegy Ellipta from home. Patient was evaluated today on 12/01/2023 feeling better, continues to have intermittent episodes of cough and wheezing, but overall the patient feels better breathing easier. Baseline FEV1 is in the range of 64%, patient received 2 units of packed RBCs since this admission, hemoglobin today is 8.4, continues to have clinical findings of possible GI bleeding, patient will need to be seen by GI for possible colonoscopy/EGD. Today he is on room air, does not seem to be in any distress. Considering the patient is relatively stable, I will transfer the patient out of the ICU to [facility]. WBC count today is 17.9 hemoglobin 8.4 electrolytes are normal BUN is [address] angiogram of the chest showed no evidence of pulmonary embolism on this admission, he does have diffuse emphysematous changes and basilar subsegmental atelectasis. Objective - Vital Signs Vital signs: Vital Signs Temp 97.8 F 12/01/23 12:00 Pulse 88 12/01/23 12:00 Resp 20 12/01/23 12:00 BP 159/76 12/01/23 12:00 Pulse Ox 93 L 12/01/23 12:00 FiO2 Intake & Output 11/30/23 12/01/23 12/01/23 18:59 06:59 18:59 Intake Total 558 2479 Output Total 600 250 450 Balance -42 2229 -450 Weight 66 kg 68.6 kg Intake: IV 225 Sodium Chloride 0.9% 1, 225 000 ml @ 75 mls/hr IV . [id number] [facility] Rx#:[id number] Oral 558 1014 Blood Product 0 1240 Rc As-1 Unit 310 [id number] Rc As-1 Unit 0 310 [id number] Output: Urine 600 250 450 Other: Voiding Method Urinal Urinal # Voids 4 # Bowel Movements 0 1 - Exam General appearance: alert, anxious, in distress, patient is on room air. Head exam: atraumatic, normocephalic, normal inspection Eye exam: normal appearance, PERRL, EOMI. Absent: scleral icterus, conjunctival injection, periorbital swelling ENT exam: normal exam, mucous membranes moist Neck exam: normal inspection. Absent: tenderness, meningismus, lymphadenopathy Respiratory exam: Diminished breath sound bilaterally some wheezing on forced expiratory maneuver noted bilaterally. Cardiovascular Exam: regular rate, normal rhythm, normal heart sounds. Absent: systolic murmur, diastolic murmur, rubs, gallop, clicks GI/Abdominal exam: soft, normal bowel sounds. Absent: distended, tenderness, guarding, rebound, rigid Extremities exam: normal inspection, full ROM, normal capillary refill. Absent: tenderness, pedal edema, joint swelling, calf tenderness Neurological exam: alert, oriented X3, CN II-XII intact Psychiatric exam: normal affect, normal mood, normal mental status Skin exam: warm, dry, intact, normal color. Absent: rash - Labs CBC & Chem 7: 12/01/23 06:15 12/01/23 06:15 Labs: Abnormal Lab Results - Last 24 Hours (Table) 11/30/23 11/30/23 11/30/23 Range/Units 17:26 17:34 17:54 WBC (3.8-10.6) k/uL RBC (4.30-5.90) m/uL Hgb (13.0-17.5) gm/dL Hct (39.0-53.0) % RDW (11.5-15.5) % Neutrophils # (1.3-7.7) k/uL Chloride (98-107) mmol/L Carbon Dioxide (22-30) mmol/L BUN (9-20) mg/dL Creatinine (0.66-1.25) mg/dL Glucose (74-99) mg/dL POC Glucose (mg/dL) 186 H 169 H (70-110) mg/dL Calcium (8.4-10.2) mg/dL Crossmatch See Detail 11/30/23 12/01/23 12/01/23 Range/Units 17:59 00:31 06:15 WBC 21.0 H 17.3 H 17.9 H (3.8-10.6) k/uL RBC 2.37 L 2.36 L 2.77 L (4.30-5.90) m/uL Hgb 7.9 L 7.3 L 8.4 L (13.0-17.5) gm/dL Hct 22.9 L 22.3 L 26.1 L (39.0-53.0) % RDW 15.7 H 15.7 H (11.5-15.5) % Neutrophils # 19.2 H 15.6 H 15.6 H (1.3-7.7) k/uL Chloride (98-107) mmol/L Carbon Dioxide (22-30) mmol/L BUN (9-20) mg/dL Creatinine (0.66-1.25) mg/dL Glucose (74-99) mg/dL POC Glucose (mg/dL) (70-110) mg/dL Calcium (8.4-10.2) mg/dL Crossmatch 12/01/23 Range/Units 06:15 WBC (3.8-10.6) k/uL RBC (4.30-5.90) m/uL Hgb (13.0-17.5) gm/dL Hct (39.0-53.0) % RDW (11.5-15.5) % Neutrophils # (1.3-7.7) k/uL Chloride 113 H (98-107) mmol/L Carbon Dioxide 19 L (22-30) mmol/L BUN 43 H (9-20) mg/dL Creatinine 1.46 H (0.66-1.25) mg/dL Glucose 128 H (74-99) mg/dL POC Glucose (mg/dL) (70-110) mg/dL Calcium 7.5 L (8.4-10.2) mg/dL Crossmatch Assessment and Plan Assessment: Impression: Acute exacerbation of COPD with secondary shortness of breath. Acute hypoxic respiratory failure the patient is currently on room air oxygen Coronary artery disease with previous bypass surgery History of smoking and the patient continues to smoke around 10 to 15 cigarettes on daily basis Hypertension Hyperlipidemia History of prostate cancer treated with radiation seeds within the prostate Acute on chronic kidney disease stage III, the acute component is improving Acute hyperkalemia, recovered Anemia, possible GI bleeding considering his abnormal stools as noted by the nu rse taking care of the patient, patient will need GI consultation and possible EGD and colonoscopy. Recommendation: Continue present bronchodilators including Symbicort and DuoNeb, continue Solu-Medrol Continue empiric Zithromax. Continue IV Solu-Medrol. GI to see on consultation. Transfer patient to 3 S. today. Will continue to follow and will continue to monitor his pulmonary status as well as his hemoglobin status and possible blood loss. Anemia Time with Patient: Less than 30
[2023-12-01] MEDS: PEG 3350 (236 GM/BTL) + LYTES 4,000 ML BOTTLE PO ONE (17:35)
--- NOTE | 2023-12-01 23:33 | P.PN ---
Subjective Progress Note Date: 12/01/23 Patient pleasant 77-year-old male came with complaints of shortness of breath and patient is reporting clear dysfunction at this time patient does have history of COPD continues to smoke about 10 to 15 cigarettes/day. Patient was having some dry cough. Chest x-ray did not show any pneumonia CT angio of the chest was done which did not show pulmonary embolism but did show a 12 mm pulmonary nodule. Patient is feeling much better at this time after breathing treatments and systemic steroids. Patient was found to have elevated serum creatinine of 1.7 baseline is around 1.3-1.4 patient's serum potassium is high at 6 but it is a hemolyzed sample. 11/28 patient seen and examined at bedside. Patient notes no episodes of shortness of breath overnight. Denies chest pain, abd pain, or leg pain. WBC 21.51 hemoglobin 7 hematocrit 22.8 platelet 278. 11/30/2023 patient was seen and examined today.--- Complains of shortness breath and wheezing. WBCs 20, hemoglobin 7.9, platelet normal. Creatinine 1.4. Creatinine trending down. Patient remains on bronchodilator, pulmonary evaluate the patient today and increase Solu-Medrol to 60 mg every 6 hour. 12/01/2023 Patient was moved to the ICU as patient is actively bleeding and was noted to have bright red bowel movements x 2 while on the medical surgical unit and hemoglobin was 7.3. Patient to receive 2 units and current hemoglobin this morning is 8.4. White count is elevated although is trending down and patient is continued on Solu-Medrol for COPD exacerbation. General surgery consulted and patient is currently on clear liquids. 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 Review of systems: Constitutional: No reports of fatigue, fever, or chills, reports of generalized weakness Cardiovascular: No reports of chest pain or palpitations Respiratory: reports of shortness of breath with exertion and continued cough GI: No reports of nausea, vomiting, or diarrhea : No reports of dysuria or retention Neurovascular: reports of weakness All medications have been reviewed Physical exam: Gen: This is a 77-year-old male who is awake, alert and oriented, well- developed, elderly appearing, ill-appearing HEENT: Head is atraumatic, normocephalic. Pupils equal, round. Sclerae is anict martina. NECK: Supple. No JVD. No lymphadenopathy. No thyromegaly. LUNGS: Clear to auscultation. No wheezes or rhonchi. No intercostal retractions. HEART: Regular rate and rhythm. No murmur. ABDOMEN: Soft. Bowel sounds are present. No masses. No tenderness. EXTREMITIES: No pedal edema. No calf tenderness. NEUROLOGICAL: Patient is awake, alert and oriented x3. Cranial nerves 2 through 12 are grossly intact. diffusely weak Assessment and plan: Acute hypoxic respiratory failure: secondary to Acute COPD exacerbation History of smoking, current smoker Coronary artery disease history status post CABG Hypertension Hyperlipidemia YVROSE on CKD likely Hyperkalemia: Resolved Anemia of chronic disease: with concerns of acute GI bleeding. Patient has been noted to have multiple loose bloody stools this admission. received 2 units of PRBC at this time History of prostate cancer treated with radiation seeds within the prostate Plan: Respiratory status gradually improving, still short of breath and wheezy, oxygenation improved to room air, will continue Symbicort, DuoNeb, IV Solu- Medrol, azithromycin empirically. Pulmonary following Patient had multiple bloody bowel movements with concerns of GI bleed requiring 2 units of PRBC. General surgery consulted and will be starting EGD/Colonoscopy for 12/01 Monitor kidney function, creatinine stable, nephrology following, ultrasound renal showed no hydronephrosis, incidental cholelithiasis Hyperkalemia is improved, on IV fluids Continue Flomax GI prophylaxis DVT prophylaxis full code Plan: Patient is on 3 south per protocol for possible GI bleed. Patient hemoglobin is stable at 8.3 today with dark stool and clots noted per nursing staff, has lessened in intensity. Generall surgery following and patient will start prep for EGD and colonoscopy, NPO at midnight Monitor for any further bleeding and transfuse if 7 or less Continue duonebs and steroid therapy with pulmonary following Prognosis is guarded The impression and plan of care has been dictated by Yoon Eng, Nurse Practitioner as directed. Dr. Aida MD I have performed a history and examination and MDM of this patient, discussed the same with the dictator, and agree with the dictator's assessment and plan as written ,documented as a scribe. Based on total visit time, I have performed more than 50% of the visit. Objective - Vital Signs Vital signs: Vital Signs Temp 98.5 F 12/01/23 03:15 Pulse 92 12/01/23 09:18 Resp 18 12/01/23 08:00 BP 107/60 12/01/23 05:45 Pulse Ox 91 L 12/01/23 05:45 FiO2 Intake & Output 11/30/23 12/01/23 12/01/23 18:59 06:59 18:59 Intake Total 558 2479 Output Total 600 250 350 Balance -42 2229 -350 Weight 66 kg 68.6 kg Intake: IV 225 Sodium Chloride 0.9% 1, 225 000 ml @ 75 mls/hr IV . [id number] [facility] Rx#:[id number] Oral 558 1014 Blood Product 0 1240 Rc As-1 Unit 310 [id number] Rc As-1 Unit 0 310 [id number] Output: Urine 600 250 350 Other: Voiding Method Urinal Urinal # Voids 4 # Bowel Movements 0 1 - Labs CBC & Chem 7: 12/01/23 06:15 12/01/23 06:15 Labs: Abnormal Lab Results - Last 24 Hours (Table) 11/29/23 11/30/23 11/30/23 Range/Units 08:43 03:13 17:26 WBC (3.8-10.6) k/uL RBC (4.30-5.90) m/uL Hgb (13.0-17.5) gm/dL Hct (39.0-53.0) % RDW (11.5-15.5) % Neutrophils # (1.3-7.7) k/uL Chloride (98-107) mmol/L Carbon Dioxide 19.0 L (21.6-31.8) mmol/L BUN 29.2 H (9.0-27.0) mg/dL Creatinine (0.66-1.25) mg/dL Est GFR (CKD-EPI) 51 L (>=60) BUN/Creatinine Ratio 20.86 H (12.00-20.00) Ratio Glucose 123 H (70-110) mg/dL POC Glucose (mg/dL) 186 H (70-110) mg/dL Calcium 8.0 L (8.7-10.3) mg/dL Vitamin B12 973.0 H (200.0-944.0) pg/mL Crossmatch 11/30/23 11/30/23 11/30/23 Range/Units 17:34 17:54 17:59 WBC 21.0 H (3.8-10.6) k/uL RBC 2.37 L (4.30-5.90) m/uL Hgb 7.9 L (13.0-17.5) gm/dL Hct 22.9 L (39.0-53.0) % RDW 15.7 H (11.5-15.5) % Neutrophils # 19.2 H (1.3-7.7) k/uL Chloride (98-107) mmol/L Carbon Dioxide (21.6-31.8) mmol/L BUN (9.0-27.0) mg/dL Creatinine (0.66-1.25) mg/dL Est GFR (CKD-EPI) (>=60) BUN/Creatinine Ratio (12.00-20.00) Ratio Glucose (70-110) mg/dL POC Glucose (mg/dL) 169 H (70-110) mg/dL Calcium (8.7-10.3) mg/dL Vitamin B12 (200.0-944.0) pg/mL Crossmatch See Detail 12/01/23 12/01/23 12/01/23 Range/Units 00:31 06:15 06:15 WBC 17.3 H 17.9 H (3.8-10.6) k/uL RBC 2.36 L 2.77 L (4.30-5.90) m/uL Hgb 7.3 L 8.4 L (13.0-17.5) gm/dL Hct 22.3 L 26.1 L (39.0-53.0) % RDW 15.7 H (11.5-15.5) % Neutrophils # 15.6 H 15.6 H (1.3-7.7) k/uL Chloride 113 H (98-107) mmol/L Carbon Dioxide 19 L (21.6-31.8) mmol/L BUN 43 H (9.0-27.0) mg/dL Creatinine 1.46 H (0.66-1.25) mg/dL Est GFR (CKD-EPI) (>=60) BUN/Creatinine Ratio (12.00-20.00) Ratio Glucose 128 H (70-110) mg/dL POC Glucose (mg/dL) (70-110) mg/dL Calcium 7.5 L (8.7-10.3) mg/dL Vitamin B12 (200.0-944.0) pg/mL Crossmatch
[2023-12-02 06:48] LABS: Basophils % (A) 0 %; Eosinophils % (A) 0 %; HCT 23.7 % (39.0-53.0); Lymphocytes % (A) 6 %; MCH 31.1 pg (25.0-35.0); MCHC 33.6 g/dL (31.0-37.0); MCV 92.4 fL (80.0-100.0); Mean Platelet Volume 9.1; Monocytes # (A) 0.5 k/uL (0-1.0); Monocytes % (A) 3 %; Neutrophils # (A) 16.4 k/uL (1.3-7.7); Neutrophils % (A) 91 %; Platelet Count 227 k/uL (150-450); Poikilocytosis Slight; RBC 2.56 m/uL (4.30-5.90); RDW 15.9 % (11.5-15.5); WBC 18.2 k/uL (3.8-10.6)
[2023-12-02 06:59] LABS: African American GFR (CKD) 73 (>60 ml/min/1.73 sqM); Anion Gap 6 mmol/L; Blood Urea Nitrogen 36 mg/dL (9-20); Calcium 7.8 mg/dL (8.4-10.2); Carbon Dioxide 23 mmol/L (22-30); Chloride 108 mmol/L (98-107); Glucose 128 mg/dL (74-99); Non-African American GFR(CKD) 63 (>60 ml/min/1.73 sqM); Potassium 3.9 mmol/L (3.5-5.1); Sodium 137 mmol/L (137-145)
--- NOTE | 2023-12-02 08:25 | XR ---
EXAMINATION TYPE: XR chest 1V DATE OF EXAM: 12/02/2023 HISTORY: Shortness of breath. COMPARISON: 11/28/2023 TECHNIQUE: Single view of the chest is submitted. FINDINGS: Demonstrated are scattered senescent parenchymal change. There is no evidence for focal infiltrate. The heart is stable. Hilar and mediastinal structures are within normal limits. Degenerative changes are seen of the dorsal spine. IMPRESSION: 1. Chronic changes without evidence for acute pulmonary disease.
--- NOTE | 2023-12-02 11:14 | P.PN ---
Subjective Patient is seen in follow-up for acute kidney injury on chronic kidney disease. Renal function improved. Off IV fluids. Hemoglobin stable today. Colonoscopy today. Hemodynamically stable. Vital signs are stable. General: No acute distress. HEENT: Head exam is unremarkable. On room air. LUNGS: Scattered rhonchi. HEART: Rate and Rhythm are regular. ABDOMEN: Nontender. EXTREMITITES: No edema. Objective - Vital Signs Vital signs: Vital Signs Temp 97.7 F 12/02/23 08:10 Pulse 79 12/02/23 08:10 Resp 20 12/02/23 08:10 BP 159/80 12/02/23 08:10 Pulse Ox 100 12/02/23 08:10 FiO2 Intake & Output 12/01/23 12/02/23 12/02/23 18:59 06:59 18:59 Output Total 700 0 Balance -700 0 Weight 67.5 kg Output: Urine 700 0 Other: Voiding Method Urinal Urinal # Voids 1 # Bowel Movements 1 1 - Labs CBC & Chem 7: 12/02/23 06:12 12/02/23 06:12 Labs: Abnormal Lab Results - Last 24 Hours (Table) 12/02/23 12/02/23 Range/Units 06:12 06:12 WBC 18.2 H (3.8-10.6) k/uL RBC 2.56 L (4.30-5.90) m/uL Hgb 8.0 L (13.0-17.5) gm/dL Hct 23.7 L (39.0-53.0) % RDW 15.9 H (11.5-15.5) % Neutrophils # 16.4 H (1.3-7.7) k/uL Chloride 108 H (98-107) mmol/L BUN 36 H (9-20) mg/dL Glucose 128 H (74-99) mg/dL Calcium 7.8 L (8.4-10.2) mg/dL Assessment and Plan Plan: Assessment: 1. Acute kidney injury secondary to ATN secondary to hypotension. Renal function improved. Creatinine 1.12 today. UA benign. No hydronephrosis noted on kidney ultrasound. 2. Acute GI bleed status post blood transfusions this admission. Surgery following. Status post IV iron. Also received IV DDAVP. On Aranesp. 3. Chronic kidney disease stage IIIb with baseline creatinine 1.4-1.5 secondary to nephrosclerosis. 4. Metabolic acidosis secondary to IV fluids. Improved. Plan: Encouraged oral intake. Colonoscopy pending. Avoid nephrotoxins.
[2023-12-02] MEDS ORDERED: PROPOFOL 10 MG/ML 20 ML VIAL IV ONE (13:19)
[2023-12-02] MEDS ORDERED: LIDOCAINE 2% (PF) 20 MG/ML 5 ML VIAL ONE (13:19)
[2023-12-02] MEDS: SODIUM CHLORIDE 0.9% 500 ML 500 ML IV ONE (13:20)
--- NOTE | 2023-12-02 13:42 | P.PCN ---
Date of Procedure: 12/02/23 Preoperative Diagnosis: GI bleed Postoperative Diagnosis: Gastric ulcer Duodenal ulcer Procedure(s) Performed: EGD with biopsy Anesthesia: WILLIAM Surgeon: Gricelda Davis Pathology: other (Biopsy of duodenal ulcer, gastric ulcer and GE junction) Condition: stable Disposition: floor Indications for Procedure: 77-year-old male who presented with concern for GI bleed. He did require packed red blood cell transfusion. He states that he was having black stool and has not had this in about 24 hours. Denies nausea or vomiting. Attempt was made to prep him for colonoscopy as well as EGD, however he did not complete the prep and is not clear for colonoscopy. Operative Findings: Gastric ulcer, nonbleeding Duodenal ulcer, nonbleeding Description of Procedure: The patient was brought to the endoscopy suite and placed in left lateral decubitus position and adequate sedation was achieved using conscious sedation. A bite block was placed and an endoscope was placed in the oropharynx and advanced under endoscopic visualization. The endoscope was advanced through the esophagus into the stomach, through the gastric antrum and in through the pylorus. The third portion of the duodenum was visualized. The endoscope was then slowly withdrawn. The first portion of the duodenum was noted to have a nonbleeding duodenal ulcer. Biopsy was taken of the site. Hemostasis was noted to be maintained. The antrum was noted to have gastritis and the distal portion of the antrum was noted to have a gastric ulcer. This was also nonbleeding. Biopsy was taken. The gastric body distended normally and the gastric folds appeared normal and flattened with insufflation. A retroflexed view of the fundus and GE junction revealed no significant hiatal hernia. The esophagus appeared endoscopically normal with a thin layer of food along the edges. Excess air was removed and the scope was withdrawn and the procedure completed. The patient was then sent to postanesthesia care unit in stable condition. Recommend continuing PPI twice daily along with Carafate.
--- NOTE | 2023-12-02 14:53 | P.PN ---
Subjective Progress Note Date: 12/02/23 Principal diagnosis: Acute exacerbation of COPD This is a 77-year-old male patient who came into the emergency department because of shortness of breath. The patient is known to me and the patient had an FEV1 of 64% of predicted consistent with moderate severe COPD. The patient is a chronic smoker the patient was started on Trelegy Ellipta 1 puff a day on outpatient basis and he was doing well over the past few months. Earlier this morning, the patient started having increased shortness of breath and increased dyspnea and cough and chest tightness and wheezing. Based on that, he was brought into the emergency department. Noted his to smoke around 10 to 15 cigarettes on a daily basis. In the ED, the patient's chest x-ray showed no evidence of a pneumonia. CT of the chest was done that showed emphysematous changes bilaterally with upper lobe predominance. No evidence of any pulmonary embolism. Nonspecific pulmonary nodule was also noted in the CAT scan of the chest measuring 4 mm in size and right lower lobe. The patient is currently on 2 L of oxygen by nasal cannula. The blood work shows a WBC of 12.9, it was 9.2 and a platelet count of 736. BUN 33 with a creatinine of 0.7. Noted the patient also has a potassium level of 6. He has been having issues with chronic kidney disease over the past 1 year. His previous creatinine was around 1.5. He is known to have prostate cancer the patient undergone insertion of radiation seeds by urology. He is on Flomax. He is producing urine output although his urine output is quite dark and concentrated. He is on normal saline at rate of 75 cc an hour. Although the Dilaudid she was on IV Solu-Medrol. He is also known to have coronary disease with previous bypass surgery. His troponins are 0.02, 0.02 and 0.01 respectively x 3. His hyperkalemia was managed and that he potassium level is normalized. The pathology has been consulted and the patient will have a bladder scan and ultrasound of the kidneys. On 11/29/2023, the patient is being seen for a follow-up. Patient is currently being treated for an acute CF exacerbation. The patient is on DuoNeb the regimen is on the clock, Symbicort as maintenance and IV Solu-Medrol 40 mg every 12 hours. The patient has no new complaints. He feels much improved compared to yesterday. He was seen by hematology oncology regarding chronic normocytic anemia. The patient's hemoglobin is at 9.2 on admission with an MCV of 95. He is undergoing further workup regarding anemia and the patient was started on oral iron supplements. History of the exacerbation is being treated accordingly. On today's blood work, the hemoglobin is at 7.0 with a white cell count of 21.5 and a platelet count of 278. Reticulocyte count is at 2.4, haptoglobin is at 329, BUN is 26 with a creatinine of 1.2. UA is negative. Oxygenation is stable and the patient has been taken off the oxygen and the patient started on room air oxygen with a pulse ox of 96%. 11/30/2023, the patient continues to be bronchospastic and wheezy and having exertional dyspnea. The white cell count of 20 with a hemoglobin 7.9 and platelet count of 359. BUN is 29 and creatinine is at 1.4. Creatinine has somewhat improved and as well as at 137. Remains on bronchodilators. Increase his Solu-Medrol dose to 60 mg every 6 hours and the patient utilizing Trelegy Ellipta from home. Patient was evaluated today on 12/01/2023 feeling better, continues to have intermittent episodes of cough and wheezing, but overall the patient feels better breathing easier. Baseline FEV1 is in the range of 64%, patient received 2 units of packed RBCs since this admission, hemoglobin today is 8.4, continues to have clinical findings of possible GI bleeding, patient will need to be seen by GI for possible colonoscopy/EGD. Today he is on room air, does not seem to be in any distress. Considering the patient is relatively stable, I will transfer the patient out of the ICU to [facility]. WBC count today is 17.9 hemoglobin 8.4 electrolytes are normal BUN is [address] angiogram of the chest showed no evidence of pulmonary embolism on this admission, he does have diffuse emphysematous changes and basilar subsegmental atelectasis. Patient was evaluated today on 12/02/2023, patient is doing well, on room air, not in any distress in spite of his underlying COPD, FEV1 is in the range of 64%. Patient underwent EGD today, and the findings were unremarkable. He was found to have nonbleeding gastric ulcer and duodenal ulcer but neither of them was bleeding. Patient is now scheduled for colonoscopy tomorrow.WBC count is 18.2 hemoglobin is 8 basic metabolic profile is normal renal profile is better with creatinine down to 1.12. Objective - Vital Signs Vital signs: Vital Signs Temp 98.1 F 12/02/23 11:31 Pulse 79 12/02/23 14:00 Resp 18 12/02/23 14:00 BP 145/82 12/02/23 11:31 Pulse Ox 98 12/02/23 11:31 FiO2 Intake & Output 12/01/23 12/02/23 12/02/23 18:59 06:59 18:59 Intake Total 200 Output Total 700 0 Balance -700 0 200 Weight 67.5 kg Intake: IV 200 Output: Urine 700 0 Other: Voiding Method Urinal Urinal Urinal # Voids 1 # Bowel Movements 1 1 - Exam General appearance: alert, anxious, in distress, patient is on room air. Head exam: atraumatic, normocephalic, normal inspection Eye exam: normal appearance, PERRL, EOMI. Absent: scleral icterus, conjunctival injection, periorbital swelling ENT exam: normal exam, mucous membranes moist Neck exam: normal inspection. Absent: tenderness, meningismus, lymphadenopathy Respiratory exam: Clear bilaterally no crackles rhonchi or wheezes Cardiovascular Exam: regular rate, normal rhythm, normal heart sounds. Absent: systolic murmur, diastolic murmur, rubs, gallop, clicks GI/Abdominal exam: soft, normal bowel sounds. Absent: distended, tenderness, guarding, rebound, rigid Extremities exam: normal inspection, full ROM, normal capillary refill. Absent: tenderness, pedal edema, joint swelling, calf tenderness Neurological exam: alert, oriented X3, CN II-XII intact Psychiatric exam: normal affect, normal mood, normal mental status Skin exam: warm, dry, intact, normal color. Absent: rash - Labs CBC & Chem 7: 12/02/23 06:12 12/02/23 06:12 Labs: Abnormal Lab Results - Last 24 Hours (Table) 12/02/23 12/02/23 Range/Units 06:12 06:12 WBC 18.2 H (3.8-10.6) k/uL RBC 2.56 L (4.30-5.90) m/uL Hgb 8.0 L (13.0-17.5) gm/dL Hct 23.7 L (39.0-53.0) % RDW 15.9 H (11.5-15.5) % Neutrophils # 16.4 H (1.3-7.7) k/uL Chloride 108 H (98-107) mmol/L BUN 36 H (9-20) mg/dL Glucose 128 H (74-99) mg/dL Calcium 7.8 L (8.4-10.2) mg/dL Assessment and Plan Assessment: Impression: Acute exacerbation of COPD with secondary shortness of breath. Significantly improved Acute hypoxic respiratory failure the patient is currently on room air oxygen Coronary artery disease with previous bypass surgery History of smoking and the patient continues to smoke around 10 to 15 cigarettes on daily basis Hypertension Hyperlipidemia History of prostate cancer treated with radiation seeds within the prostate Acute on chronic kidney disease stage III, the acute component is improving Acute hyperkalemia, recovered Anemia, possible GI bleeding EGD is nondiagnostic today, scheduled for colon oscopy tomorrow Recommendation: Continue present bronchodilators including Symbicort and DuoNeb, continue Solu- Medrol Continue empiric antibiotics/Zithromax Continue IV Solu-Medrol. Patient will have colonoscopy tomorrow Will continue to follow Time with Patient: Less than 30
[2023-12-02] MEDS: SUCRALFATE 1 GM TAB PO SCH (17:28)
[2023-12-02] MEDS: SODIUM FERRIC GLUCONAT-SUCROSE 125 MG in SODIUM CHLORIDE 0.9% 100 ML IVPB ONE (17:57)
[2023-12-02 19:25] VITALS: RESP 18
--- NOTE | 2023-12-03 06:04 | P.PN ---
Subjective Progress Note Date: 12/02/23 Patient pleasant 77-year-old male came with complaints of shortness of breath and patient is reporting clear dysfunction at this time patient does have history of COPD continues to smoke about 10 to 15 cigarettes/day. Patient was having some dry cough. Chest x-ray did not show any pneumonia CT angio of the chest was done which did not show pulmonary embolism but did show a 12 mm pulmonary nodule. Patient is feeling much better at this time after breathing treatments and systemic steroids. Patient was found to have elevated serum creatinine of 1.7 baseline is around 1.3-1.4 patient's serum potassium is high at 6 but it is a hemolyzed sample. 11/28 patient seen and examined at bedside. Patient notes no episodes of shortness of breath overnight. Denies chest pain, abd pain, or leg pain. WBC 21.51 hemoglobin 7 hematocrit 22.8 platelet 278. 11/30/2023 patient was seen and examined today.--- Complains of shortness breath and wheezing. WBCs 20, hemoglobin 7.9, platelet normal. Creatinine 1.4. Creatinine trending down. Patient remains on bronchodilator, pulmonary evaluate the patient today and increase Solu-Medrol to 60 mg every 6 hour. 12/01/2023 Patient was moved to the ICU as patient is actively bleeding and was noted to have bright red bowel movements x 2 while on the medical surgical unit and hemoglobin was 7.3. Patient to receive 2 units and current hemoglobin this morning is 8.4. White count is elevated although is trending down and patient is continued on Solu-Medrol for COPD exacerbation. General surgery consulted and patient is currently on clear liquids. 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 12/02/2023 Patient is seen in follow-up today scheduled to undergo EGD/colonoscopy. Patient was only able to tolerate a third of the GoLytely and has not successfully prepped. Patient is currently n.p.o. and will undergo EGD with Dr. Davis this afternoon to evaluate for GI bleed. Stools were noted to be dark with no fresh blood noted and hemoglobin is stable today at 8.0. Will follow-up with repeat labs and transfuse if 7 or less. Will await EGD report and if patient needs to further evaluate for colonoscopy. Patient also maintained on breathing inhalational treatments for acute COPD exacerbation and is improving maintained on room air. Review of systems: Constitutional: No reports of fatigue, fever, or chills, reports of generalized weakness Cardiovascular: No reports of chest pain or palpitations Respiratory: reports of improvements in shortness of breath with exertion and continued cough GI: No reports of nausea, vomiting, or diarrhea : No reports of dysuria or retention Neurovascular: reports of weakness All medications have been reviewed Physical exam: Gen: This is a 77-year-old male who is asleep although arousable, alert and oriented, well-developed, elderly appearing, ill-appearing HEENT: Head is atraumatic, normocephalic. Pupils equal, round. Sclerae is anicteric. NECK: Supple. No JVD. No lymphadenopathy. No thyromegaly. LUNGS: Diminished breath sounds bilaterally otherwise some scattered rhonchi noted and faint expiratory wheezing. No intercostal retractions. HEART: Regular rate and rhythm. No murmur. ABDOMEN: Soft. Thin. Bowel sounds are present. No masses. No tenderness. EXTREMITIES: No pedal edema. No calf tenderness. NEUROLOGICAL: Patient is awake, alert and oriented x3. Cranial nerves 2 through 12 are grossly intact. diffusely weak Assessment and plan: Acute hypoxic respiratory failure: secondary to Acute COPD exacerbation History of smoking, current smoker Coronary artery disease history status post CABG Hypertension Hyperlipidemia YVROSE on CKD likely Hyperkalemia: Resolved Anemia of chronic disease: with concerns of acute GI bleeding. Patient has been noted to have multiple loose bloody stools this admission. received 2 units of PRBC at this time History of prostate cancer treated with radiation seeds within the prostate Plan: Respiratory status improving, still short of breath and slightly wheezy, oxygenation improved to room air, will continue Symbicort, DuoNeb, IV Solu- Medrol Pulmonary following Patient had multiple bloody bowel movements with concerns of GI bleed requiring 2 units of PRBC. General surgery following and scheduled to undergo EGD today and currently n.p.o. Colonoscopy is currently canceled as patient was unable to tolerate the prep and is not clear. Nursing staff was noted to report dark stools with no active bleeding noted Monitor kidney function, creatinine stable, nephrology following, ultrasound r enal showed no hydronephrosis, incidental cholelithiasis Hyperkalemia is improved, on IV fluids Continue Flomax GI prophylaxis DVT prophylaxis full code Plan: Patient is on 3 south per protocol for possible GI bleed. Patient hemoglobin is stable at 8.0 today with dark stool noted during bowel prep. Patient was unable to successfully complete the GoLytely and colonoscopy portion will be canceled. Patient scheduled to undergo EGD this afternoon and is currently NPO. Will await report Recommend follow-up labs in the morning monitor for any further bleeding and transfuse if 7 or less Continue duonebs and steroid therapy with pulmonary following encouraged increase activity as tolerated Prognosis is guarded The impression and plan of care has been dictated by Yoon Eng, Nurse Practitioner as directed. Dr. Aida MD I have performed a history and examination and MDM of this patient, discussed the same with the dictator, and agree with the dictator's assessment and plan as written ,documented as a scribe. Based on total visit time, I have performed more than 50% of the visit. Objective - Vital Signs Vital signs: Vital Signs Temp 98.1 F 12/02/23 11:31 Pulse 79 12/02/23 14:00 Resp 18 12/02/23 14:00 BP 145/82 12/02/23 11:31 Pulse Ox 98 12/02/23 11:31 FiO2 Intake & Output 12/01/23 12/02/23 12/02/23 18:59 06:59 18:59 Intake Total 200 Output Total 700 0 Balance -700 0 200 Weight 67.5 kg Intake: IV 200 Output: Urine 700 0 Other: Voiding Method Urinal Urinal Urinal # Voids 1 # Bowel Movements 1 1 - Labs CBC & Chem 7: 12/02/23 06:12 12/02/23 06:12 Labs: Abnormal Lab Results - Last 24 Hours (Table) 12/02/23 12/02/23 Range/Units 06:12 06:12 WBC 18.2 H (3.8-10.6) k/uL RBC 2.56 L (4.30-5.90) m/uL Hgb 8.0 L (13.0-17.5) gm/dL Hct 23.7 L (39.0-53.0) % RDW 15.9 H (11.5-15.5) % Neutrophils # 16.4 H (1.3-7.7) k/uL Chloride 108 H (98-107) mmol/L BUN 36 H (9-20) mg/dL Glucose 128 H (74-99) mg/dL Calcium 7.8 L (8.4-10.2) mg/dL
--- NOTE | 2023-12-03 08:12 | P.PN ---
Subjective Progress Note Date: 12/03/23 Patient seen and examined at bedside. No acute events. No bowel movements overnight or late yesterday. Objective - Vital Signs Vital signs: Vital Signs Temp 97.9 F 12/03/23 03:14 Pulse 73 12/03/23 03:14 Resp 18 12/03/23 03:14 BP 142/67 12/03/23 03:14 Pulse Ox 96 12/03/23 03:14 FiO2 Intake & Output 12/02/23 12/03/23 12/03/23 18:59 06:59 18:59 Intake Total 640 Output Total 800 1150 Balance -160 -1150 Weight 62.5 kg Intake: IV 200 Oral 440 Output: Urine 800 1150 Other: Voiding Method Urinal Urinal # Voids 2 - Constitutional General appearance: Present: cooperative - Respiratory Details: No difficulty with respiration - Gastrointestinal Gastrointestinal Comment(s): Soft, nontender, nondistended, no rebound, no guard - Labs CBC & Chem 7: 12/02/23 06:12 12/02/23 06:12 Assessment and Plan Plan: 77-year-old male with concern for GI bleed. EGD performed yesterday with finding of nonbleeding duodenal and gastric ulcer. Biopsies were taken. Continue with ulcer treatment with twice daily PPI and Carafate. If patient is to be discharged, recommend home prescription of PPI twice daily and Carafate 4 times daily. Okay to advance diet as tolerated. As ulcers were found as likely source of GI bleed, colonoscopy not urgent at this time and can be performed as an outpatient unless concerning evidence of lower GI bleed.
[2023-12-03] MEDS: predniSONE 20 MG TAB PO SCH (08:37)
[2023-12-03 08:42] VITALS: TEMP 98
[2023-12-03 08:48] LABS: African American GFR (CKD) 68 (>60 ml/min/1.73 sqM); Anion Gap 11 mmol/L; Blood Urea Nitrogen 34 mg/dL (9-20); Calcium 8.4 mg/dL (8.4-10.2); Carbon Dioxide 20 mmol/L (22-30); Chloride 106 mmol/L (98-107); Glucose 136 mg/dL (74-99); Non-African American GFR(CKD) 59 (>60 ml/min/1.73 sqM); Sodium 137 mmol/L (137-145)
[2023-12-03 09:09] LABS: HCT 25.6 % (39.0-53.0); HGB 8.1 gm/dL (13.0-17.5); Hypochromasia Marked; MCH 30.8 pg (25.0-35.0); MCHC 31.6 g/dL (31.0-37.0); Mean Platelet Volume 9.1; Platelet Count 267 k/uL (150-450); RBC 2.62 m/uL (4.30-5.90)
[2023-12-03 09:17] LABS: MCV 97.6 fL (80.0-100.0)
[2023-12-03 10:20] LABS: Band Neutrophils % 3 %; Lymphocytes # (M) 1.14 k/uL (1.0-4.8); Metamyelocytes # (M) 0.16 k/uL (0); Metamyelocytes % 1 %; Monocytes # (M) 0.49 k/uL (0-1.0); Myelocytes # (M) 0.16 k/uL (0); Myelocytes % 1 %; Neutrophils % (M) 87 %; Nucleated Red Blood Cells 2 /100 WBC (0-0); Total Cells Counted 200; WBC 16.3 k/uL (3.8-10.6)
[2023-12-03 10:21] LABS: Polychromasia Present
--- NOTE | 2023-12-03 10:24 | P.PN ---
Subjective Patient is seen in follow-up for acute kidney injury on chronic kidney disease. Renal function stable. Off IV fluids. Hemoglobin stable. Denies any active bleeding. Hemodynamically stable. Vital signs are stable. General: No acute distress. HEENT: Head exam is unremarkable. On room air. LUNGS: Scattered rhonchi. HEART: Rate and Rhythm are regular. ABDOMEN: Nontender. EXTREMITITES: No edema. Objective - Vital Signs Vital signs: Vital Signs Temp 98.0 F 12/03/23 07:10 Pulse 80 12/03/23 09:20 Resp 18 12/03/23 09:20 BP 153/75 12/03/23 07:10 Pulse Ox 97 12/03/23 09:08 FiO2 Intake & Output 12/02/23 12/03/23 12/03/23 18:59 06:59 18:59 Intake Total 640 200 Output Total 800 1150 Balance -160 -1150 200 Weight 62.5 kg Intake: IV 200 Oral 440 200 Output: Urine 800 1150 Other: Voiding Method Urinal Urinal Urinal # Voids 2 1 # Bowel Movements 1 - Labs CBC & Chem 7: 12/03/23 07:56 12/03/23 07:56 Labs: Abnormal Lab Results - Last 24 Hours (Table) 12/03/23 12/03/23 Range/Units 07:56 07:56 WBC 16.6 H (3.8-10.6) k/uL RBC 2.62 L (4.30-5.90) m/uL Hgb 8.1 L (13.0-17.5) gm/dL Hct 25.6 L (39.0-53.0) % RDW 16.0 H (11.5-15.5) % Carbon Dioxide 20 L (22-30) mmol/L BUN 34 H (9-20) mg/dL Glucose 136 H (74-99) mg/dL Assessment and Plan Plan: Assessment: 1. Acute kidney injury secondary to ATN secondary to hypotension. Renal function improved. Creatinine stable at 1.18. UA benign. No hydronephrosis no charlie on kidney ultrasound. 2. Acute GI bleed status post blood transfusions this admission. Surgery following. Status post IV iron. Also received IV DDAVP. On Aranesp. Colonoscopy showed nonbleeding gastric and duodenal ulcer. On PPI. 3. Chronic kidney disease stage IIIb with baseline creatinine 1.4-1.5 secondary to nephrosclerosis. 4. Metabolic acidosis secondary to YVROSE. 5. Benign hypertension. Exacerbated by prednisone. Plan: Encouraged oral intake. Avoid nephrotoxins. Add amlodipine 5 mg once daily.
[2023-12-03] MEDS: amLODIPine 5 MG TAB PO SCH (11:03)
[2023-12-03 11:06] VITALS: BP 156/73
[2023-12-03 12:25] VITALS: PULSE 80
--- NOTE | 2023-12-03 15:24 | P.PN ---
Subjective Progress Note Date: 12/03/23 Principal diagnosis: Acute exacerbation of COPD This is a 77-year-old male patient who came into the emergency department because of shortness of breath. The patient is known to me and the patient had an FEV1 of 64% of predicted consistent with moderate severe COPD. The patient is a chronic smoker the patient was started on Trelegy Ellipta 1 puff a day on outpatient basis and he was doing well over the past few months. Earlier this morning, the patient started having increased shortness of breath and increased dyspnea and cough and chest tightness and wheezing. Based on that, he was brought into the emergency department. Noted his to smoke around 10 to 15 cigarettes on a daily basis. In the ED, the patient's chest x-ray showed no evidence of a pneumonia. CT of the chest was done that showed emphysematous changes bilaterally with upper lobe predominance. No evidence of any pulmonary embolism. Nonspecific pulmonary nodule was also noted in the CAT scan of the chest measuring 4 mm in size and right lower lobe. The patient is currently on 2 L of oxygen by nasal cannula. The blood work shows a WBC of 12.9, it was 9.2 and a platelet count of 736. BUN 33 with a creatinine of 0.7. Noted the patient also has a potassium level of 6. He has been having issues with chronic kidney disease over the past 1 year. His previous creatinine was around 1.5. He is known to have prostate cancer the patient undergone insertion of radiation seeds by urology. He is on Flomax. He is producing urine output although his urine output is quite dark and concentrated. He is on normal saline at rate of 75 cc an hour. Although the Dilaudid she was on IV Solu-Medrol. He is also known to have coronary disease with previous bypass surgery. His troponins are 0.02, 0.02 and 0.01 respectively x 3. His hyperkalemia was managed and that he potassium level is normalized. The pathology has been consulted and the patient will have a bladder scan and ultrasound of the kidneys. On 11/29/2023, the patient is being seen for a follow-up. Patient is currently being treated for an acute CF exacerbation. The patient is on DuoNeb the regimen is on the clock, Symbicort as maintenance and IV Solu-Medrol 40 mg every 12 hours. The patient has no new complaints. He feels much improved compared to yesterday. He was seen by hematology oncology regarding chronic normocytic anemia. The patient's hemoglobin is at 9.2 on admission with an MCV of 95. He is undergoing further workup regarding anemia and the patient was started on oral iron supplements. History of the exacerbation is being treated accordingly. On today's blood work, the hemoglobin is at 7.0 with a white cell count of 21.5 and a platelet count of 278. Reticulocyte count is at 2.4, haptoglobin is at 329, BUN is 26 with a creatinine of 1.2. UA is negative. Oxygenation is stable and the patient has been taken off the oxygen and the patient started on room air oxygen with a pulse ox of 96%. 11/30/2023, the patient continues to be bronchospastic and wheezy and having exertional dyspnea. The white cell count of 20 with a hemoglobin 7.9 and platelet count of 359. BUN is 29 and creatinine is at 1.4. Creatinine has somewhat improved and as well as at 137. Remains on bronchodilators. Increase his Solu-Medrol dose to 60 mg every 6 hours and the patient utilizing Trelegy Ellipta from home. Patient was evaluated today on 12/01/2023 feeling better, continues to have intermittent episodes of cough and wheezing, but overall the patient feels better breathing easier. Baseline FEV1 is in the range of 64%, patient received 2 units of packed RBCs since this admission, hemoglobin today is 8.4, continues to have clinical findings of possible GI bleeding, patient will need to be seen by GI for possible colonoscopy/EGD. Today he is on room air, does not seem to be in any distress. Considering the patient is relatively stable, I will transfer the patient out of the ICU to [facility]. WBC count today is 17.9 hemoglobin 8.4 electrolytes are normal BUN is [address] angiogram of the chest showed no evidence of pulmonary embolism on this admission, he does have diffuse emphysematous changes and basilar subsegmental atelectasis. Patient was evaluated today on 12/02/2023, patient is doing well, on room air, not in any distress in spite of his underlying COPD, FEV1 is in the range of 64%. Patient underwent EGD today, and the findings were unremarkable. He was found to have nonbleeding gastric ulcer and duodenal ulcer but neither of them was bleeding. Patient is now scheduled for colonoscopy tomorrow.WBC count is 18.2 hemoglobin is 8 basic metabolic profile is normal renal profile is better with creatinine down to 1.12. Patient was seen today on 12/03/2023, patient is on room air, not in any distress, feeling better overall, continues to have occasional cough and whee zing, but not in any form of distress.Hemoglobin is holding at 8.1, patient was supposed to have colonoscopy but apparently this was canceled and is supposed to have this done on outpatient basis since the patient could be considered for discharge planning and follow-up on outpatient basis with Dr. Davis Objective - Vital Signs Vital signs: Vital Signs Temp 98.0 F 12/03/23 07:10 Pulse 80 12/03/23 12:25 Resp 18 12/03/23 12:25 BP 156/73 12/03/23 11:02 Pulse Ox 97 12/03/23 11:02 FiO2 Intake & Output 12/02/23 12/03/23 12/03/23 18:59 06:59 18:59 Intake Total 640 400 Output Total 800 1150 300 Balance -160 -1150 100 Weight 62.5 kg Intake: IV 200 Oral 440 400 Output: Urine 800 1150 300 Other: Voiding Method Urinal Urinal Urinal # Voids 2 1 # Bowel Movements 1 - Exam General appearance: alert, anxious, in distress, patient is on room air. Head exam: atraumatic, normocephalic, normal inspection Eye exam: normal appearance, PERRL, EOMI. Absent: scleral icterus, conjunctival injection, periorbital swelling ENT exam: normal exam, mucous membranes moist Neck exam: normal inspection. Absent: tenderness, meningismus, lymphadenopathy Respiratory exam: Minimal wheezing on forced expiratory maneuver Cardiovascular Exam: regular rate, normal rhythm, normal heart sounds. Absent: systolic murmur, diastolic murmur, rubs, gallop, clicks GI/Abdominal exam: soft, normal bowel sounds. Absent: distended, tenderness, guarding, rebound, rigid Extremities exam: normal inspection, full ROM, normal capillary refill. Absent: tenderness, pedal edema, joint swelling, calf tenderness Neurological exam: alert, oriented X3, CN II-XII intact Psychiatric exam: normal affect, normal mood, normal mental status Skin exam: warm, dry, intact, normal color. Absent: rash - Labs CBC & Chem 7: 12/03/23 07:56 12/03/23 07:56 Labs: Abnormal Lab Results - Last 24 Hours (Table) 12/03/23 12/03/23 Range/Units 07:56 07:56 WBC 16.3 H (3.8-10.6) k/uL RBC 2.62 L (4.30-5.90) m/uL Hgb 8.1 L (13.0-17.5) gm/dL Hct 25.6 L (39.0-53.0) % RDW 16.0 H (11.5-15.5) % Neutrophils # (Manual) 14.60 H (1.3-7.7) k/uL Metamyelocytes # (Man) 0.16 H (0) k/uL Myelocytes # (Manual) 0.16 H (0) k/uL Nucleated RBCs 2 H (0-0) /100 WBC Carbon Dioxide 20 L (22-30) mmol/L BUN 34 H (9-20) mg/dL Glucose 136 H (74-99) mg/dL Assessment and Plan Assessment: Impression: Acute exacerbation of COPD with secondary shortness of breath. Significantly improved Acute hypoxic respiratory failure the patient is currently on room air oxygen Coronary artery disease with previous bypass surgery History of smoking and the patient continues to smoke around 10 to 15 cigarettes on daily basis Hypertension Hyperlipidemia History of prostate cancer treated with radiation seeds within the prostate Acute on chronic kidney disease stage III, the acute component is improving Acute hyperkalemia, recovered Anemia, possible GI bleeding EGD is nondiagnostic today, scheduled for colonosc opy tomorrow Recommendation: Continue present bronchodilators including Symbicort and DuoNeb, change Solu- Medrol to prednisone burst and taper over on outpatient basis Patient received full course of antibiotics Patient should have colonoscopy on outpatient basis Will clear for discharge if cleared by other consultants Time with Patient: Less than 30
--- NOTE | 2023-12-06 11:06 | P.DS ---
Providers Date of admission: 11/30/23 17:52 Expected date of discharge: 12/03/23 Attending physician: Mitchel Pollack Consults: 11/28/23 07:18 Consult Physician Routine Consulting Provider: Jackson Fontenot Consult Reason/Comments: copd Do you want consulting provider notified?: Yes Consult Physician Routine Consulting Provider: Laci Ye Consult Reason/Comments: ski Do you want consulting provider notified?: Yes 11/28/23 21:48 Consult Physician Routine Consulting Provider: Robert Tineo Consult Reason/Comments: multiple myeloma vs. MDS Do you want consulting provider notified?: Yes, Notify in am 11/30/23 17:00 Consult Physician Urgent Consulting Provider: Quoc Villalpando Consult Reason/Comments: active gib Do you want consulting provider notified?: Yes Primary care physician: Yara Sawant Hospital Course: Final diagnosis Acute hypoxic respiratory failure: secondary to Acute COPD exacerbation History of smoking, current smoker Coronary artery disease history status post CABG Hypertension Hyperlipidemia YVROSE on CKD likely Hyperkalemia: Resolved Anemia of chronic disease: with concerns of acute GI bleeding. Patient has been noted to have multiple loose bloody stools this admission. received 2 units of PRBC at this time, status post EGD showing nonbleeding gastroduodenal ulcer History of prostate cancer treated with radiation seeds within the prostate Discharge disposition Patient is being discharged in a stable condition with guarded prognosis to home. Patient will follow-up with Dr. Sawant in the outpatient setting upon discharge. Patient is to continue with current medications and outpatient follow-up with general surgery Dr. Davis as scheduled. Continue holding Plavix for the next few days and follow-up with repeat CBC to monitor hemoglobin. Total time taken is greater than 35 minutes. Hospital course This is a 77-year-old male who was recently admitted with increasing shortness of breath with acute hypoxic respiratory failure secondary to COPD exacerbation. Patient also noted to have multiple bowel movements that were bloody and was evaluated by general surgery initially recommending EGD/colonoscopy. Patient attempted a bowel prep although unable to complete and colonoscopy portion was canceled. Patient underwent EGD showing nonbleeding gastric duodenal ulcer and biopsies were obtained and patient instructed to follow-up with general surgery Dr. Davis outpatient for results and discussing possible colonoscopy in the patient setting. Hemoglobin is stable above 8 with no active bleeding noted and is tolerating diet. COPD has improved and patient will follow-up with pulmonary in the outpatient setting. Please refer to other consultation notes for further HPI. Currently no reports of chest pain, shortness of breath, or palpitations. Patient is afebrile. No reports of nausea or vomiting and patient is tolerating diet. Patient will be discharged home today. Guarded prognosis given patient's significant comorbidities. Physical exam: Gen: This is a 77-year-old male who is awake, alert and oriented x 3, well- developed, well-nourished, elderly appearing, thin built, ill-appearing HEENT: Head is atraumatic, normocephalic. Pupils equal, round. Sclerae is anicteric. NECK: Supple. No JVD. No lymphadenopathy. No thyromegaly. LUNGS: Clear to auscultation. No wheezes or rhonchi. No intercostal retr actions. HEART: Regular rate and rhythm. No murmur. ABDOMEN: Soft. Thin. bowel sounds are present. No masses. No tenderness. EXTREMITIES: No pedal edema. No calf tenderness. NEUROLOGICAL: Patient is awake, alert and oriented x3. Cranial nerves 2 through 12 are grossly intact. Please refer to medication reconciliation sheet for a list of medications. The impression and plan of care has been dictated by Yoon Eng, Nurse Practitioner as directed. Dr. Aida MD I have performed a history and examination and MDM of this patient, discussed the same with the dictator, and agree with the dictator's assessment and plan as written ,documented as a scribe. Based on total visit time, I have performed more than 50% of the visit. Patient Condition at Discharge: Stable Plan - Discharge Summary Discharge Rx Participant: No New Discharge Prescriptions: New Darbepoetin Mike [Aranesp] 40 mcg SQ Q7D 30 Days #4 each Sucralfate [Carafate] 1 gm PO QID 30 Days #120 tab amLODIPine [Norvasc] 5 mg PO DAILY #30 tab predniSONE See Taper PO DIRECTED #30 tab Pantoprazole Sodium [Protonix] 40 mg PO BID 30 Days #60 tab Famotidine [Pepcid] 20 mg PO DAILY #30 tab Continue Hyaluronic Acid 850 mg PO DAILY Ferrous Sulfate [Iron (65 MG Elemental)] 325 mg PO DAILY Ranolazine [Ranexa] 1,000 mg PO BID Fluticasone/Umeclidin/Vilanter [Trelegy Ellipta 100-62.5-25] 1 puff INHALATION RT-DAILY Albuterol Sulfate [Albuterol Sulfate Hfa] 1 - 2 puff PO RT-Q6H PRN PRN Reason: Shortness Of Breath Aspirin 81 mg PO HS #0 Pravastatin Sodium 80 mg PO HS Metoprolol Tartrate 12.5 mg PO BID Loratadine [Claritin] 10 mg PO DAILY Docusate Sodium [Dok] 100 mg PO DAILY PRN PRN Reason: Constipation Tamsulosin HCl [Flomax] 0.4 mg PO BID Multivitamins, Thera [Multivitamin (formulary)] 1 tab PO DAILY Clopidogrel [Plavix] 75 mg PO DAILY #0 Discharge Medication List Metoprolol Tartrate 12.5 mg PO BID 08/13/22 [History] Pravastatin Sodium 80 mg PO HS 08/13/22 [History] Albuterol Sulfate [Albuterol Sulfate Hfa] 1 - 2 puff PO RT-Q6H PRN 11/28/23 [History] Docusate Sodium [Dok] 100 mg PO DAILY PRN 11/28/23 [History] Ferrous Sulfate [Iron (65 MG Elemental)] 325 mg PO DAILY 11/28/23 [History] Fluticasone/Umeclidin/Vilanter [Trelegy Ellipta 100-62.5-25] 1 puff INHALATION RT-DAILY 11/28/23 [History] Hyaluronic Acid 850 mg PO DAILY 11/28/23 [History] Loratadine [Claritin] 10 mg PO DAILY 11/28/23 [History] Multivitamins, Thera [Multivitamin (formulary)] 1 tab PO DAILY 11/28/23 [History] Ranolazine [Ranexa] 1,000 mg PO BID 11/28/23 [History] Tamsulosin HCl [Flomax] 0.4 mg PO BID 11/28/23 [History] Aspirin 81 mg PO HS #0 12/03/23 [Rx] Clopidogrel [Plavix] 75 mg PO DAILY #0 12/03/23 [Rx] Darbepoetin Mike [Aranesp] 40 mcg SQ Q7D 30 Days #4 each 12/03/23 [Rx] Famotidine [Pepcid] 20 mg PO DAILY #30 tab 12/03/23 [Rx] Pantoprazole Sodium [Protonix] 40 mg PO BID 30 Days #60 tab 12/03/23 [Rx] Sucralfate [Carafate] 1 gm PO QID 30 Days #120 tab 12/03/23 [Rx] amLODIPine [Norvasc] 5 mg PO DAILY #30 tab 12/03/23 [Rx] predniSONE See Taper PO DIRECTED #30 tab 12/03/23 [Rx] Follow up Appointment(s)/Referral(s): [facility], [NON-STAFF] - Quoc Villalpando DO [Medical Doctor] - 12/23/23 8:00 am Yara Sawant MD [Primary Care Provider] - 12/04/23 9:00 am Ambulatory/Diagnostic Orders: Complete Blood Count w/diff [LAB.AMB] Location: None Selected Patient Instructions/Handouts: Heart Failure (DC), Gastrointestinal Bleeding (DC), COPD (Chronic Obstructive Pulmonary Disease) (DC), Anemia (DC) Activity/Diet/Wound Care/Special Instructions: Home Care will start after your follow up with Dr. Sawant. Activity limited until follow-up Follow-up with primary care provider on discharge Follow-up with pulmonary outpatient in 1 to 2 weeks Continue taking prednisone taper until finished Continue holding aspirin and Plavix for the next few days and repeat labs to monitor hemoglobin Follow-up with general surgery in the outpatient setting to discuss possible colonoscopy General surgery recommending Protonix twice daily as well as Carafate 4 times daily on discharge Slowly advance diet as tolerated Discharge Disposition: HOME WITH HOME HEALTH SERVICES
--- NOTE | 2023-12-21 17:23 | CDI ---
Documentation Clarification Form Date: 12/21/2023 05:14:49 PM From: Elly Phillips Phone: Admit Date: 11/30/2023 05:52:00 PM Patient Name: Juan Ramon Chaudhry Visit Number: [id number] Discharge Date: 12/03/2023 03:27:00 PM ATTENTION: The Clinical Documentation Specialists (CDI) and [facility] Coding Staff appreciate your assistance in clarifying documentation. Please respond to the clarification below the line at the bottom and electronically sign. The CDI & [facility] Coding staff will review the response and follow-up if needed. Please note: Queries are made part of the Legal Health Record. If you have any questions, please contact the author of this message via ITS. Doctor/Provider: Mana Parra The final diagnosis of the pathology report states Candidafungalesophagitis. Coding guidelines do not allow coding professionals to code based on pathology results; therefore, clarification is requested. History/risk factors: 77yo M, AHRF, AECOPD, CAD, HTN, HLD, AKIonCKDIIIB, hyperkalemia, anemia of chronic disease, GIB, Hx prostate Cx, smoker Clinical Indicators: GASTROESOPHAGEAL JUNCTION, BIOPSY: Reactive esophagealsquamousepithelium and mucosa with abundant activeesophagitisandsquamousepithelial debris with fungal organisms present. Negative forBarrett's esophagusandviralcytopathic effect. PAS stain with appropriate control positive for fungal organisms, clinical/endoscopic correlation suggested as indicated. Treatment: Patient underwentEGDshowing nonbleeding gastricduodenal ulcerand biopsieswere obtained and patient instructed tofollow-upwith general surgery Dr. Davis outpatient for results and discussingpossiblecolonoscopyin the patient setting. Hemoglobin is stable above 8with noactivebleedingnoted and is tolerating diet. COPDhas improved and patient willfollow-upwith pulmonary in the outpatient setting. Please clarify if you agree with the pathology report diagnosis of Candidafungalesophagitis: [ x ] Yes [ ] No [ ] Other (please specify) [ ] Unable to determine (Template Last Revised: May 2020) MTDD
== END 2023-12-03 15:27 | disposition home health service (06) | DRG 189 ==
LOC: EC 04:05 → 3SCARD 07:00 → 6NMEDSUR 16:21 → 2SICU 11-30 17:39 → OBSVTOIN 11-30 17:52 → 3SCARD 12-01 12:17
PROVIDERS: ADMIT Hospitalist; ATTEND Hospitalist
PROC: 30233N1 Transfusion of Nonautologous Red Blood Cells into Peripheral Vein, Percutaneous Approach (ICD-10-PCS; 2023-11-30)
PROC: 0DB68ZX Excision of Stomach, Via Natural or Artificial Opening Endoscopic, Diagnostic (ICD-10-PCS; 2023-12-02)
PROC: 0DB48ZX Excision of Esophagogastric Junction, Via Natural or Artificial Opening Endoscopic, Diagnostic (ICD-10-PCS; 2023-12-02)
PROC: 0DB98ZX Excision of Duodenum, Via Natural or Artificial Opening Endoscopic, Diagnostic (ICD-10-PCS; principal; 2023-12-02 13:00)
DX: J96.01 Acute respiratory failure with hypoxia (principal); N17.0 Acute kidney failure with tubular necrosis; K25.4 Chronic or unspecified gastric ulcer with hemorrhage; K29.81 Duodenitis with bleeding; B37.81 Candidal esophagitis; J44.1 Chronic obstructive pulmonary disease with (acute) exacerbation; E87.20 Acidosis, unspecified; J96.02 Acute respiratory failure with hypercapnia; E11.22 Type 2 diabetes mellitus with diabetic chronic kidney disease; C61 Malignant neoplasm of prostate; N18.32 Chronic kidney disease, stage 3b; D63.8 Anemia in other chronic diseases classified elsewhere; I95.9 Hypotension, unspecified; E87.8 Other disorders of electrolyte and fluid balance, not elsewhere classified; I13.10 Hypertensive heart and chronic kidney disease without heart failure, with stage 1 through stage 4 chronic kidney disease, or unspecified chronic kidney disease; D50.9 Iron deficiency anemia, unspecified; F17.210 Nicotine dependence, cigarettes, uncomplicated; I25.10 Atherosclerotic heart disease of native coronary artery without angina pectoris; E78.5 Hyperlipidemia, unspecified; E87.5 Hyperkalemia; D72.829 Elevated white blood cell count, unspecified; T38.0X5A Adverse effect of glucocorticoids and synthetic analogues, initial encounter; N64.82 Hypoplasia of breast; N40.0 Benign prostatic hyperplasia without lower urinary tract symptoms; R91.1 Solitary pulmonary nodule; Z95.1 Presence of aortocoronary bypass graft; Z92.3 Personal history of irradiation; Z86.14 Personal history of Methicillin resistant Staphylococcus aureus infection; I25.2 Old myocardial infarction; Z79.82 Long term (current) use of aspirin; Z79.02 Long term (current) use of antithrombotics/antiplatelets; Z79.899 Other long term (current) drug therapy; Z79.51 Long term (current) use of inhaled steroids; Z91.040 Latex allergy status; Z87.19 Personal history of other diseases of the digestive system; Z90.89 Acquired absence of other organs
CPT/HCPCS: 36415; 43239; 51798; 71045; 71275; 76770; 80048; 80053; 81003; 82272; 82607; 82728; 82746; 83010; 83540; 83550; 83605; 83615; 83735; 83880; 83921; 84132; 84153; 84439; 84443; 84484; 85025; 85027; 85045; 85379; 85610; 85730; 86850; 86900; 86901; 86920; 88305; 88312; 88341; 88342; 93005; 94640; 94760; 96361; 96374; 99291

== ENCOUNTER → 2023-12-12 | Outpatient (CLI) | payer MEDICARE ==
--- NOTE | 2023-12-13 09:14 | XR ---
EXAMINATION TYPE: XR bone survey complete DATE OF EXAM: 12/12/2023 COMPARISON: None HISTORY: Leukocytosis and chronic anemia TECHNIQUE: Multiple images were obtained throughout the axial and appendicular skeleton. FINDINGS: Chest x-ray: Fixation rods are within the mid thoracic spine. Heart size is normal. Pulmonary vascula ture is normal. Mild right lower lobe trait is present. Correlate for atelectasis and pneumonia. Cervical spine is examined in 2 projections. 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 There is los s of disc height C5-6, C6-7. Posterior spinal lamellar line is intact. Prevertebral space is normal. There is extensive calcification at the expected carotid bifurcations. Consider additional evaluatio n with ultrasound. No suspicious lytic or sclerotic lesions evident. Humeri: Bilateral humeri are examined in AP projections. No suspicious lytic lesions. 2 view skull: No suspicious lytic lesions evident. Sella is unremarkable. Paranasal sinuses as visual ized appear clear Thoracic spine: Fixation is present to the mid thoracic spine. Visualized pedicles appear intact. Jacky tebral body heights are preserved. There is loss of disc height and T2-6-7, T7-8. Loss of disc height is present T12-L1. Lumbar spine: There are 5 lumbar-type vertebral bodies. L1-L4 pedicles are intact. There is no good v isualization of the right L5 pedicle which may be due to degenerative change. Left pedicle appears no rmal. Diffuse loss of disc height is present throughout the lumbar spine. Vacuum disc phenomenon is p resent L5-S1. There is diffuse fusiform prominence of the distal abdominal aorta measuring up to 3.4 cm. Bilateral femurs: No suspicious lytic lesions evident. Vascular calcifications within the bilateral t highs. Pelvis: Femoral heads articulate with the acetabulum. Joint spaces are preserved. No suspicious lytic lesions evident. IMPRESSION: 1. Mild right lower lobe infiltrate. Correlate for atelectasis or pneumonia. 2. Extensive carotid artery calcification. Consider ultrasound for additional evaluation. 3. Diffuse large of the distal abdominal aorta up to 3.4 cm. 4. No acute osseous abnormality. [facility], , 12/13/2023 9:12 AM
== END | disposition home or self-care (01) ==
LOC: RADXRMAIN 13:51
PROVIDERS: ATTEND Internal Medicine Hematology & Oncology
DX: D72.829 Elevated white blood cell count, unspecified (principal); D63.1 Anemia in chronic kidney disease; I70.90 Unspecified atherosclerosis; R91.8 Other nonspecific abnormal finding of lung field; I70.0 Atherosclerosis of aorta
CPT/HCPCS: 77075

== ENCOUNTER 2023-12-25 10:07 | Emergency (ER) | payer MEDICARE ==
--- NOTE | 2023-12-25 10:13 | ED ---
GI Bleed HPI - General Chief complaint: GI Bleed Stated complaint: Rectal bleeding,RODRIGO Time Seen by Provider: 12/25/23 10:13 Source: patient, family, RN notes reviewed Limitations: no limitations - History of Present Illness Initial comments: This is a 78-year-old male presents emergency department with his for chief complaint of weakness and rectal bleeding. Patient states that he has a known history of a ulcer of his colon and over the past 2 days he has been experienc ing bright red blood in his stool. Additionally of the past week he states that he has been feeling weak and has had a loss of appetite. He is denying overt abdominal pain. Patient has been scheduled outpatient for further evaluation of GI bleed with colonoscopy and scope in the next few weeks. Additionally, patient has received iron infusions in the past and recently for low iron. He is denying chest pain, shortness of breath, abdominal pain, urinary symptoms. - Related Data Home Medications Medication Instructions Recorded Confirmed Metoprolol Tartrate 12.5 mg PO BID 08/13/22 11/28/23 Pravastatin Sodium 80 mg PO HS 08/13/22 11/28/23 Albuterol Sulfate [Albuterol 1 - 2 puff PO RT-Q6H PRN 11/28/23 11/28/23 Sulfate Hfa] Docusate Sodium [Dok] 100 mg PO DAILY PRN 11/28/23 11/28/23 Ferrous Sulfate [Iron (65 MG 325 mg PO DAILY 11/28/23 11/28/23 Elemental)] Fluticasone/Umeclidin/Vilanter 1 puff INHALATION RT-DAILY 11/28/23 11/28/23 [Trelegy Ellipta 100-62.5-25] Hyaluronic Acid 850 mg PO DAILY 11/28/23 11/28/23 Loratadine [Claritin] 10 mg PO DAILY 11/28/23 11/28/23 Multivitamins, Thera [Multivitamin 1 tab PO DAILY 11/28/23 11/28/23 (formulary)] Ranolazine [Ranexa] 1,000 mg PO BID 11/28/23 11/28/23 Tamsulosin HCl [Flomax] 0.4 mg PO BID 11/28/23 11/28/23 Previous Rx's Medication Instructions Recorded Aspirin 81 mg PO HS #0 09/11/24 Clopidogrel [Plavix] 75 mg PO DAILY #0 12/03/23 Darbepoetin Mike [Aranesp] 40 mcg SQ Q7D 30 Days #4 each 12/03/23 Famotidine [Pepcid] 20 mg PO DAILY #30 tab 12/03/23 Pantoprazole Sodium [Protonix] 40 mg PO BID 30 Days #60 tab 12/03/23 Sucralfate [Carafate] 1 gm PO QID 30 Days #120 tab 12/03/23 amLODIPine [Norvasc] 5 mg PO DAILY #30 tab 12/03/23 predniSONE See Taper PO DIRECTED #30 tab 12/03/23 Allergies Allergy/AdvReac Type Severity Reaction Status Date / Time latex Allergy Rash/Hives Verified 12/25/23 10:11 Review of Systems ROS Statement: Those systems with pertinent positive or pertinent negative responses have been documented in the HPI. ROS Other: All systems not noted in ROS Statement are negative. Past Medical History Past Medical History: Coronary Artery Disease (CAD), Chest Pain / Angina, Hyperlipidemia, Hypertension, Myocardial Infarction (MT), Osteoarthritis (OA), Prostate Disorder Additional Past Medical History / Comment(s): has a bad valve, (hx of mrsa on valve [facility]) mrsa went throughout body affected many things per spouse. PSA elevated , prostate cancer -intermediate dx. has trouble with rt hand, hx diverticulitis, hernia Last Myocardial Infarction Date:: 2008 History of Any Multi-Drug Resistant Organisms: MRSA Date of last positivie culture/infection: 2017 MDRO Source:: blood Past Surgical History: Appendectomy, Bladder Surgery, Bowel Resection, Coronary Bypass/CABG, Heart Catheterization With Stent Additional Past Surgical History / Comment(s): 4-5 stents, triple bypass at 39yrs old, prostate bx, colon resection due to diverticulitis, diverticulitis ate into bladder - repaired Past Anesthesia/Blood Transfusion Reactions: No Reported Reaction Additional Past Anesthesia/Blood Transfusion Reaction / Comment(s): blood tranfusion? no issues Date of Last Stent Placement:: 2021 Past Psychological History: No Psychological Hx Reported Smoking Status: Current every day smoker Past Alcohol Use History: None Reported Past Drug Use History: None Reported - Past Family History Father Family Medical History: Coronary Artery Disease (CAD) Mother Family Medical History: Diabetes Mellitus Sister(s) Family Medical History: Diabetes Mellitus Brother(s) Family Medical History: Diabetes Mellitus General Exam Limitations: no limitations General appearance: alert, in no apparent distress ENT exam: Present: normal exam, mucous membranes moist Neck exam: Present: normal inspection. Absent: tenderness, meningismus, lymphadenopathy Respiratory exam: Present: normal lung sounds bilaterally. Absent: respiratory distress, wheezes, rales, rhonchi, stridor Cardiovascular Exam: Present: regular rate, normal rhythm, normal heart sounds. Absent: systolic murmur, diastolic murmur, rubs, gallop, clicks GI/Abdominal exam: Present: soft, normal bowel sounds, hernia (umbilical). Absent: distended, tenderness, guarding, rebound, rigid Rectal exam: Present: normal rectal tone, bloody stool, hemorrhoids Extremities exam: Present: normal inspection, full ROM, normal capillary refill. Absent: tenderness, pedal edema, joint swelling, calf tenderness Back exam: Present: normal inspection Neurological exam: Present: alert, oriented X3, CN II-XII intact Skin exam: Present: rash (dry rash over the suprapubic region with flaking, no erythema/crusting or scaling) Course Vital Signs 12/25/23 12/25/23 10:08 13:03 Temperature 97.5 F L 97.6 F Pulse Rate 78 73 Respiratory 18 16 Rate Blood Pressure 93/62 124/70 O2 Sat by Pulse 100 94 L Oximetry Medical Decision Making - Medical Decision Making Was pt. sent in by a medical professional or institution (, PA, CLOTH[employer] DRIER ASSEMBLER, urgent care, hospital, or [facility]...) When possible be specific @ -No Did you speak to anyone other than the patient for history (EMS, parent, family, police, friend...)? What history was obtained from this source @ -Spoke to the patient's at bedside who states that the patient was recently mid to the hospital for COPD exacerbation. Additionally, he recently saw Dr. Villalpando outpatient on Friday and there is discussion that patient will undergo further imaging via colonoscopy for ulcer of the colon. Did you review nursing and triage notes (agree or disagree)? Why? @ -I reviewed and agree with nursing and triage notes Were old charts reviewed (outside hosp., previous admission, EMS record, old EKG, old radiological studies, urgent care reports/EKG's, [facility] records)? Report findings @ -reviewed the patient's emergency department visit note from 11/28/2023 he presented for significant dyspnea and shortness of breath he was admitted to the hospital. I reviewed the documentation from patient's the biopsy which revealed positive for Minoo fungal esophagitis and negative for Christianson's esophagus and was in structed follow-up outpatient with Dr. Davis for possible colonoscopy Differential Diagnosis (chest pain, altered mental status, abdominal pain women, abdominal pain men, vaginal bleeding, weakness, fever, dyspnea, syncope, headache, dizziness, GI bleed, back pain, seizure, CVA, palpatations, mental health, musculoskeletal)? @ -Differential GI Bleed: Esophageal varices, aortoenteric fistula, Kanwal-Smith, gastritis, peptic ulcer disease, diverticulosis, inflammatory bowel disease, hemorrhoids, fissure, colitis, malignancy, Meckel's diverticulum, this is not meant to be an all-inc lusive list. EKG interpreted by me (3pts min.). @ -Completed at 1053 sinus rhythm with a ventricular rate 64, CO interval 168, QRS 96, QTc 402. No acute signs of ischemia. X-rays interpreted by me (1pt min.). @ -None done CT interpreted by me (1pt min.). @ - CTA of the abdomen and pelvis reveals no bowel obstruction with anastomotic sutures at the rectosigmoid junction, no evidence of acute bleed U/S interpreted by me (1pt. min.). @ -None done What testing was considered but not performed or refused? (CT, X-rays, U/S, labs)? Why? @ -None What meds were considered but not given or refused? Why? @ -None Did you discuss the management of the patient with other professionals (professionals i.e. , PA, CLOTH[employer] DRIER ASSEMBLER, lab, RT, psych nurse, social service director, artillery officer, teacher, nuclear security officer, case sealer)? Give summary @ -No Was smoking cessation discussed for >3mins.? @ -No Was critical care preformed (if so, how long)? @ -No Were there social determinants of health that impacted care today? How? (Homelessness, low income, unemployed, alcoholism, drug addiction, transportation, low edu. Level, literacy, decrease access to med. care, shelter, rehab)? @ -No Was there de-escalation of care discussed even if they declined (Discuss DNR or withdrawal of care, Hospice)? DNR status @ -No What co-morbidities impacted this encounter? (DM, HTN, Smoking, COPD, CAD, Cancer, CVA, ARF, Chemo, Hep., AIDS, mental health diagnosis, sleep apnea, morbid obesity)? @ -None Was patient admitted / discharged? Hospital course, mention meds given and route, prescriptions, significant lab abnormalities, going to OR and other pertinent info. @ - discharged. 78-year-old male with bright red blood per rectum. On patient's inital vitals in triage he was found to be hypotensive however my evaluation the patient is blood pressure is stabilized in the 130s over 80s. He is in no signs acute distress however he states that he has been feeling increasingly weak over the past week and has been having a decrease in appetite. Rectal exam reveals external hemorrhoids and no active bleeding however on rectal exam there is melena. Patient will be symptomatically treated with IV fluids pending laboratory results and CT imaging. He is in agreement with this plan. CBC reveals anemia that is chronic with a hemoglobin of 10, hct at 31, red blood cells 3.17, coagulation profile within normal limits, BUN 20, creatinine 1.43, stool occult blood is positive. CT of the abdomen no evidence of acute bleed or acute process. Patient's workup has been benign and recommend that he continue to follow-up outpatient with his primary care provider and GI specialist. All questions answered at bedside strict return parameters discussed with the patient he is verbalized understanding. Case discussed with Dr. Talley Undiagnosed new problem with uncertain prognosis? @ -No Drug Therapy requiring intensive monitoring for toxicity (Heparin, Nitro, Insulin, Cardizem)? @ -No Were any procedures done? @ -No Diagnosis/symptom? @ -GI bleed Acute, or Chronic, or Acute on Chronic? @ -acute Uncomplicated (without systemic symptoms) or Complicated (systemic symptoms)? @ -uncomplicated Side effects of treatment? @ -no Exacerbation, Progression, or Severe Exacerbation? @ -No Poses a threat to life or bodily function? How? (Chest pain, USA, MT, pneumonia, PE, COPD, DKA, ARF, appy, cholecystitis, CVA, Diverticulitis, Homicidal, Suicidal, threat to staff... and all critical care pts) @ -No - Lab Data Result diagrams: 12/25/23 10:55 12/25/23 10:55 Lab Results 12/25/23 12/25/23 12/25/23 Range/Units 10:50 10:55 10:55 WBC 6.0 (3.8-10.6) k/uL RBC 3.17 L (4.30-5.90) m/uL Hgb 10.0 L D (13.0-17.5) gm/dL Hct 31.0 L (39.0-53.0) % MCV 97.7 (80.0-100.0) fL MCH 31.7 (25.0-35.0) pg MCHC 32.4 (31.0-37.0) g/dL RDW 17.5 H (11.5-15.5) % Plt Count 358 (150-450) k/uL MPV 8.7 Neutrophils % 55 % Lymphocytes % 32 % Monocytes % 8 % Eosinophils % 2 % Basophils % 0 % Neutrophils # 3.3 (1.3-7.7) k/uL Lymphocytes # 1.9 (1.0-4.8) k/uL Monocytes # 0.5 (0-1.0) k/uL Eosinophils # 0.2 (0-0.7) k/uL Basophils # 0.0 (0-0.2) k/uL Anisocytosis Slight Macrocytosis Slight PT (10.0-12.5) sec INR (<1.2) APTT (22.0-30.0) sec Sodium (137-145) mmol/L Potassium (3.5-5.1) mmol/L Chloride (98-107) mmol/L Carbon Dioxide (22-30) mmol/L Anion Gap mmol/L BUN (9-20) mg/dL Creatinine (0.66-1.25) mg/dL Est GFR (CKD-EPI)AfAm (>60 ml/min/1.73 sqM) Est GFR (CKD-EPI)NonAf (>60 ml/min/1.73 sqM) Glucose (74-99) mg/dL Plasma Lactic Acid Chung (0.7-2.0) mmol/L Calcium (8.4-10.2) mg/dL Magnesium (1.6-2.3) mg/dL Total Bilirubin (0.2-1.3) mg/dL AST (17-59) U/L ALT (4-49) U/L Alkaline Phosphatase (38-126) U/L Total Protein (6.3-8.2) g/dL Albumin (3.5-5.0) g/dL Amylase (30-110) U/L Lipase (23-300) U/L Stool Occult Blood Positive (Negative) Blood Type A Positive Blood Type Recheck A Pos Bld Type Recheck Status No Antibody Screen NEGATIVE Spec Expiration Date 12/28/2023235412/25/23 12/25/23 12/25/23 Range/Units 10:55 10:55 10:55 WBC (3.8-10.6) k/uL RBC (4.30-5.90) m/uL Hgb (13.0-17.5) gm/dL Hct (39.0-53.0) % MCV (80.0-100.0) fL MCH (25.0-35.0) pg MCHC (31.0-37.0) g/dL RDW (11.5-15.5) % Plt Count (150-450) k/uL MPV Neutrophils % % Lymphocytes % % Monocytes % % Eosinophils % % Basophils % % Neutrophils # (1.3-7.7) k/uL Lymphocytes # (1.0-4.8) k/uL Monocytes # (0-1.0) k/uL Eosinophils # (0-0.7) k/uL Basophils # (0-0.2) k/uL Anisocytosis Macrocytosis PT 10.5 (10.0-12.5) sec INR 1.0 (<1.2) APTT 26.9 (22.0-30.0) sec Sodium 137 (137-145) mmol/L Potassium 4.7 (3.5-5.1) mmol/L Chloride 109 H (98-107) mmol/L Carbon Dioxide 23 (22-30) mmol/L Anion Gap 5 mmol/L BUN 20 (9-20) mg/dL Creatinine 1.43 H (0.66-1.25) mg/dL Est GFR (CKD-EPI)AfAm 54 (>60 ml/min/1.73 sqM) Est GFR (CKD-EPI)NonAf 47 (>60 ml/min/1.73 sqM) Glucose 99 (74-99) mg/dL Plasma Lactic Acid Chung 1.2 (0.7-2.0) mmol/L Calcium 8.7 (8.4-10.2) mg/dL Magnesium 1.9 (1.6-2.3) mg/dL Total Bilirubin 0.3 (0.2-1.3) mg/dL AST 19 (17-59) U/L ALT 19 (4-49) U/L Alkaline Phosphatase 71 (38-126) U/L Total Protein 6.1 L (6.3-8.2) g/dL Albumin 3.0 L (3.5-5.0) g/dL Amylase 31 (30-110) U/L Lipase 19 L (23-300) U/L Stool Occult Blood (Negative) Blood Type Blood Type Recheck Bld Type Recheck Status Antibody Screen Spec Expiration Date Disposition Clinical Impression: GI bleed, Blood in stool Disposition: HOME SELF-CARE Condition: Good Instructions (If sedation given, give patient instructions): Gastrointestinal Bleeding (ED) Additional Instructions: Please return to the Emergency Department if symptoms worsen or any other concerns. Is patient prescribed a controlled substance at d/c from ED?: No Referrals: Yara Sawant MD [Primary Care Provider] - 1-2 days Time of Disposition: 12:37
[2023-12-25] MEDS: SODIUM CHLORIDE 0.9% 1,000 ML IV STA (11:01)
[2023-12-25 11:10] LABS: Anisocytosis Slight; Basophils % (A) 0 %; Eosinophils # (A) 0.2 k/uL (0-0.7); Eosinophils % (A) 2 %; Lymphocytes # (A) 1.9 k/uL (1.0-4.8); Lymphocytes % (A) 32 %; MCH 31.7 pg (25.0-35.0); MCHC 32.4 g/dL (31.0-37.0); MCV 97.7 fL (80.0-100.0); Macrocytosis Slight; Mean Platelet Volume 8.7; Monocytes # (A) 0.5 k/uL (0-1.0); Monocytes % (A) 8 %; Neutrophils # (A) 3.3 k/uL (1.3-7.7); Neutrophils % (A) 55 %; Platelet Count 358 k/uL (150-450); RBC 3.17 m/uL (4.30-5.90); RDW 17.5 % (11.5-15.5)
[2023-12-25 11:20] LABS: Partial Thromboplastin Time 26.9 sec (22.0-30.0); Prothrombin Time 10.5 sec (10.0-12.5)
[2023-12-25 11:24] LABS: ALT 19 U/L (4-49); AST 19 U/L (17-59); African American GFR (CKD) 54 (>60 ml/min/1.73 sqM); Alkaline Phosphatase 71 U/L (38-126); Amylase 31 U/L (30-110); Anion Gap 5 mmol/L; Blood Urea Nitrogen 20 mg/dL (9-20); Calcium 8.7 mg/dL (8.4-10.2); Carbon Dioxide 23 mmol/L (22-30); Chloride 109 mmol/L (98-107); Glucose 99 mg/dL (74-99); Lipase 19 U/L (23-300); Magnesium 1.9 mg/dL (1.6-2.3); Non-African American GFR(CKD) 47 (>60 ml/min/1.73 sqM); Potassium 4.7 mmol/L (3.5-5.1); Sodium 137 mmol/L (137-145); Total Bilirubin 0.3 mg/dL (0.2-1.3); Total Protein 6.1 g/dL (6.3-8.2)
--- NOTE | 2023-12-25 12:23 | CT ---
CTA abdomen and pelvis. HISTORY: Right red blood per rectum. COMPARISON: None TECHNIQUE: Multiple axial images are obtained through the abdomen and pelvis following the uneventful menstruation nonionic IV contrast material. The exam was performed according to CTA protocol. Findings There is a small partially consolidated in the right lung base medially could represent a small focal infiltrate. The infrarenal abdominal aorta is mildly aneurysmal measuring 2.6 mm in AP diameter. The re is a small focal contained dissection approximately 18 mm in length. The abdominal aorta and iliac vessels are heavily calcified. The celiac artery origin is calcified but patent without significant stenosis. The origin of the SMA is heavily calcified and there is a severe stenosis. The origin of the MARJORIE appears patent and the ling gins of the renal arteries are moderately calcified but are widely patent. There is no focal mass or organomegaly involving the liver, pancreas, spleen and adrenal glands. There is mild cholelithiasis but no gallbladder distention or pericholecystic fluid. The bowel loops are normal in caliber with no evidence of obstruction. There are anastomotic sutures at the rectosigmoid junction. There is no free intraperitoneal air or fluid. There is a right urinary bladder diverticulum. There is no pelvic adenopathy. There is marked degenerative disc disease at multiple levels throughout the lower thoracic and lumbar spine but no focal destructive osseous lesions are seen. IMPRESSION: 1. Placement of a small pneumonic infiltrate in the right lung base. 2. 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 3. Mild cholelithiasis. 4. No bowel obstruction, free intraperitoneal air or fluid. 5. Anastomotic sutures at the rectosigmoid junction over 6. right-sided urinary bladder diverticulum. 7. Marked multilevel degenerative disease in the lower thoracic and lumbar spine. [facility], , 12/25/2023 12:21 PM
[2023-12-25 13:06] VITALS: BP 124/70; PULSE 73; RESP 16; TEMP 97.6
== END 2023-12-25 13:15 | disposition home or self-care (01) ==
LOC: EC 10:07
CPT/HCPCS: 36415; 74174; 80053; 82150; 82272; 83605; 83690; 83735; 85025; 85610; 85730; 86850; 86900; 86901; 93005; 96360; 99285

== ENCOUNTER → 2023-12-30 | Outpatient (CLI) | payer MEDICARE | END | disposition home or self-care (01) | LOC: LABWHC1 10:49 | PROVIDERS: ATTEND Radiology Radiation Oncology | DX: C61 Malignant neoplasm of prostate (principal); F17.210 Nicotine dependence, cigarettes, uncomplicated | CPT/HCPCS: 36415; 84153 ==

== ENCOUNTER → 2023-12-31 | Outpatient (CLI) | payer MEDICARE ==
--- NOTE | 2023-12-31 11:49 | XR ---
EXAMINATION TYPE: XR wrist complete RT DATE OF EXAM: 12/31/2023 CLINICAL HISTORY: pain TECHNIQUE: Frontal, lateral and oblique images of the right wrist are obtained. Included views also submitted. COMPARISON: None. FINDINGS: There is no acute fracture/dislocation evident. Severe radiocarpal joint space narrowing with bony re modeling seen. Intercarpal joint space narrowing seen as well. Soft tissue swelling identified. IMPRESSION: There is no acute fracture or dislocation seen. ICD 10 NO FRACTURE, INITIAL EVALUATION [facility], , 12/31/2023 11:46 AM
== END | disposition home or self-care (01) ==
LOC: RADXRYALE 11:27
PROVIDERS: ATTEND Internal Medicine
DX: M25.531 Pain in right wrist (principal)

== ENCOUNTER 2024-02-02 07:11 | Day surgery (SDC) | payer MEDICARE ==
[2024-02-02 07:37] VITALS: TEMP 97.6
[2024-02-02] MEDS: IV FLUID CONTINUATION 1,000 ML IV ONE (07:50)
[2024-02-02] MEDS: LACTATED RINGERS 1,000 ML IV SCH (07:54)
[2024-02-02] MEDS ORDERED: PROPOFOL 10 MG/ML 20 ML VIAL IV ONE (08:25)
[2024-02-02 08:51] VITALS: RESP 14
[2024-02-02 09:02] VITALS: BP 124/74; PULSE 58
--- NOTE | 2024-02-02 12:57 | P.OP ---
Date of Procedure: 02/02/24 Preoperative Diagnosis: GI Bleed Postoperative Diagnosis: 1. Gastritis 2. Suboptimal Prep of Colonoscopy 3. Diverticulosis 4. Internal and External Hemorrhoids Procedure(s) Performed: 1. EGD with Biopsy 2. Colonoscopy Anesthesia: other (Sedation) Surgeon: Quoc Villalpando Pathology: other (Antral Biopsies) Condition: stable Disposition: PACU Description of Procedure: Informed consent was obtained. The procedure, its risks, benefits, and alternatives were discussed. The patient was placed in the left lateral decubitus position.. The patient was sedated by anesthesia. The endoscope was inserted into the oropharynx and guided under direct vision into the esophagus, stomach, and duodenum. The duodenal bulb and second portion were unremarkable. The scope was withdrawn to the stomach and retroflexed. There was no increased fluid, food or secretions in the upper gastrointestinal tract. There was some gastritis appreciated. Biopsies were obtained for Helicobacter pylori. No erosions or ulcers. The scope was withdrawn to the esophagus. No Barretts or esophagitis. The patient tolerated the procedure very well. The patient was then positioned for colonoscopy. Digital rectal exam was performed revealing normal sphincter tone. There were external hemorrhoids. The colonoscope was inserted into rectum and advanced under direct visualization, without difficulty, to the cecum, where the appendiceal orifice, and the ileocecal valve were identified. The quality of the preparation was suboptimal. The colonoscope was then withdrawn while carefully examining the mucosa. The colonic mucosa appeared normal with normal vascularity and haustral markings. No masses, polyps, or AVM/s. There were diverticula seen. On retroflexed view in the rectum, there are small internal hemorrhoids. The endoscope was removed and the procedure terminated. The patient tolerated the procedure well without complications.
== END 2024-02-02 09:38 | disposition home or self-care (01) ==
LOC: ORWHC2ENDO 07:11
PROVIDERS: ATTEND Surgery
DX: K92.2 Gastrointestinal hemorrhage, unspecified (principal); K29.50 Unspecified chronic gastritis without bleeding; K57.30 Diverticulosis of large intestine without perforation or abscess without bleeding; K64.8 Other hemorrhoids; K64.4 Residual hemorrhoidal skin tags; K21.9 Gastro-esophageal reflux disease without esophagitis; E78.5 Hyperlipidemia, unspecified; I10 Essential (primary) hypertension; I25.10 Atherosclerotic heart disease of native coronary artery without angina pectoris; I25.2 Old myocardial infarction; M19.90 Unspecified osteoarthritis, unspecified site; N40.0 Benign prostatic hyperplasia without lower urinary tract symptoms; J44.9 Chronic obstructive pulmonary disease, unspecified; Z85.46 Personal history of malignant neoplasm of prostate; Z95.1 Presence of aortocoronary bypass graft; Z95.5 Presence of coronary angioplasty implant and graft; Z87.891 Personal history of nicotine dependence; Z79.899 Other long term (current) drug therapy; Z79.02 Long term (current) use of antithrombotics/antiplatelets; Z79.82 Long term (current) use of aspirin; Z90.49 Acquired absence of other specified parts of digestive tract; Z91.040 Latex allergy status
CPT/HCPCS: 88305; 88342; 45378; 43239; J2704

== ENCOUNTER → 2024-03-15 | Day surgery (SDC) | payer MEDICARE ==
[2024-03-15 06:53] VITALS: BP 138/78; PULSE 72; RESP 14; TEMP 96.9
[2024-03-15] MEDS: SIMETHICONE 40 MG/0.6 ML DROPS 2,000 MG/30 ML BOTTLE PO ONE (07:00)
== END ==
LOC: ORWHC2ENDO 06:33
PROVIDERS: ATTEND Internal Medicine Gastroenterology
DX: D64.9 Anemia, unspecified (principal)
CPT/HCPCS: 91110

== ENCOUNTER 2024-09-22 20:11 | Emergency (ER) | payer MEDICARE ==
[2024-09-22 20:43] LABS: Basophils # (A) 0.04 10*3/uL (0.00-0.10); Basophils % (A) 0.5 %; Eosinophils # (A) 0.16 10*3/uL (0.04-0.35); Eosinophils % (A) 2.0 %; HCT 35.4 % (39.6-50.0); HGB 12.0 g/dL (13.0-17.0); Lymphocytes # (A) 2.02 10*3/uL (0.90-5.00); Lymphocytes % (A) 25.7 %; MCH 34.1 pg (27.0-32.0); MCHC 33.9 g/dL (32.0-37.0); MCV 100.6 fL (80.0-97.0); Monocytes # (A) 0.94 10*3/uL (0.20-1.00); Monocytes % (A) 12.0 %; Neutrophils # (A) 4.67 10*3/uL (1.80-7.70); Neutrophils % (A) 59.4 %; Platelet Count 231 10*3/uL (140-440); RBC 3.52 10*6/uL (4.40-5.60); RDW 14.6 % (11.5-14.5); WBC 7.86 10*3/uL (4.50-10.00)
--- NOTE | 2024-09-22 20:53 | XR ---
EXAMINATION TYPE: XR KUB DATE OF EXAM: 09/22/2024 8:41 PM CLINICAL INDICATION:Male, 78 years old with history of abdominal pain; PHH, pain COMPARISON: CT abdomen/pelvis 07/25/2024. TECHNIQUE: Two views of the abdomen were obtained. FINDINGS: Postsurgical changes are noted in the partially visualized left hemithorax. Sternotomy wires are note d. Partially visualized thoracic spinal surgical hardware. Nonspecific nonobstructive bowel gas patte rn is seen. No pneumoperitoneum. No acute osseous abnormalities. Degenerative changes of the bony pel vis and bilateral hips. IMPRESSION: Nonspecific bowel gas pattern without radiographic evidence for acute intra-abdominal process. [facility], , 09/22/2024 8:51 PM
[2024-09-22 21:04] LABS: ALT 20 U/L (4-49); AST 25 U/L (17-59); African American GFR (CKD) 38 (>60 ml/min/1.73 sqM); Albumin 3.9 g/dL (3.5-5.0); Alkaline Phosphatase 59 U/L (38-126); Amylase 36 U/L (30-110); Anion Gap 11 mmol/L; Blood Urea Nitrogen 29 mg/dL (9-20); Calcium 9.5 mg/dL (8.4-10.2); Carbon Dioxide 23 mmol/L (22-30); Chloride 110 mmol/L (98-107); Glucose 114 mg/dL (74-99); Lipase 13 U/L (23-300); Non-African American GFR(CKD) 32 (>60 ml/min/1.73 sqM); Potassium 4.4 mmol/L (3.5-5.1); Sodium 144 mmol/L (137-145); Total Protein 6.9 g/dL (6.3-8.2)
[2024-09-22] MEDS: MORPHINE SULFATE 4 MG/ML SYRINGE IVP STA ×2 (21:14→22:15)
[2024-09-22] MEDS: SODIUM CHLORIDE 0.9% 1,000 ML IV ONE (21:15)
--- NOTE | 2024-09-22 22:01 | CT ---
EXAMINATION TYPE: CT abdomen pelvis wo con CT DLP: 540.3 mGycm, Automated exposure control for dose reduction was used. DATE OF EXAM: 09/22/2024 9:35 PM COMPARISON: CT abdomen pelvis most recent from 07/25/2024 CLINICAL INDICATION:Male, 78 years old with history of abdominal wall hernia; PERIUMBILICAL HERNIA, U NABLE TO SELF REDUCE. CONSTIPATION TECHNIQUE: Axial CT abdomen pelvis wo con;Sagittal and coronal reformats were created on a separate workstation. Contrast used: mL of , (none if empty) Oral contrast used: without Oral Contrast (none if empty) FINDINGS: LOWER CHEST: Emphysematous changes with scarring and atelectasis noted in the partially visualized lorenzo ngs. Redemonstrated sub-4 mm right lower lobe pulmonary nodules. ABDOMEN LIVER: Scattered calcified granulomas. GALLBLADDER AND BILE DUCTS: Cholelithiasis. No biliary ductal dilatation. PANCREAS: Diffusely atrophic with a few punctate calcifications noted in the area of the pancreatic h ead and neck. SPLEEN: Unremarkable. ADRENAL GLANDS: Unremarkable. KIDNEYS AND URETERS: No evidence of hydronephrosis. Nonobstructive punctate renal calculi are seen in the bilateral kidneys. The ureters are unremarkable. Atrophic kidneys bilaterally. PELVIS BLADDER: There are a few outpouchings seen along the posterior lateral urinary bladder wall with a do minant outpouching appreciated on the right posterior lateral aspect most likely representing urinary diverticulum measuring at least 3.9 cm. REPRODUCTIVE: Unremarkable. ABDOMEN & PELVIS STOMACH AND BOWEL: Stomach is mildly distended. Small bowel is of normal caliber. Multiple scattered colonic diverticula are seen without associated fat stranding. No evidence of bowel obstruction. PERITONEUM/RETROPERITONEUM: No evidence of pneumoperitoneum or free fluid. VASCULATURE: Moderate atherosclerotic calcifications are present throughout the abdominal aorta and i ts branches. No evidence of aortic aneurysm. MUSCULOSKELETAL: Multilevel degenerative changes of the visualized spine and bony pelvis with no acut e osseous abnormalities. Partially visualized spinal fusion hardware. LYMPH NODES: No gross evidence for lymphadenopathy. SOFT TISSUE/ABDOMINAL WALL: There is a small amount of attenuation noted in the supraumbilical subcut aneous fat with associated small fat herniation. No subcutaneous gas organized fluid collection noted . IMPRESSION: 1. No acute intra-abdominal/pelvic process. 2. Inflammatory changes seen in the supraumbilical subcutaneous tissues with a small associated fat h erniation. No necrotizing process or discrete fluid collection seen at this time. 3. Cholelithiasis. 4. Colonic diverticulosis. 5. Multiple outpouchings along the posterior lateral urinary bladder wall likely representing diverti cula. [facility], , 09/22/2024 9:59 PM
[2024-09-22 22:13] VITALS: RESP 18
--- NOTE | 2024-09-22 23:00 | ED ---
General Adult HPI - General Chief complaint: Abdominal Pain Stated complaint: Abd Pain/No recent bowel movement Time Seen by Provider: 09/22/24 20:24 Source: patient, RN notes reviewed, old records reviewed Mode of arrival: ambulatory Limitations: no limitations - History of Present Illness Initial comments: 78-year-old male presents emergency department complaining of abdominal pain. Has a history of known ventral wall hernia. States that normally contents will pass through it and he is able to easily push them back into his abdomen however for the last 3 days he has been unable to push his hernia back in. Is causing mild pain approximately 3 out of 10. States he last had a bowel movement maybe 2 days ago but this is not atypical for him. He is still passing gas. Denies any nausea or vomiting. Denies any other acute complaints at this time. States he does follow-up with a surgical group, with Dr. Villalpando. Denies any other acute complaints at this time. Presents for further evaluation. - Related Data Home Medications Medication Instructions Recorded Confirmed Pravastatin Sodium 80 mg PO HS 08/13/22 07/21/24 Albuterol Sulfate [Albuterol 2 puff INHALATION RT-QID PRN 11/28/23 07/21/24 Sulfate Hfa] Ferrous Sulfate [Iron (65 MG 325 mg PO DAILY 11/28/23 07/21/24 Elemental)] Fluticasone/Umeclidin/Vilanter 1 puff INHALATION RT-DAILY 11/28/23 07/21/24 [Trelegy Ellipta 100-62.5-25] Loratadine [Claritin] 10 mg PO DAILY 11/28/23 07/21/24 Multivitamins, Thera [Multivitamin 1 tab PO DAILY 11/28/23 07/21/24 (formulary)] Ranolazine [Ranexa] 1,000 mg PO BID 11/28/23 07/21/24 Tamsulosin HCl [Flomax] 0.4 mg PO BID 11/28/23 07/21/24 Pantoprazole [Protonix] 40 mg PO BID 07/21/24 07/21/24 Psyllium Husk [Fiber Capsule] 0.4 gm PO HS 07/21/24 07/21/24 Previous Rx's Medication Instructions Recorded Aspirin 81 mg PO HS #0 12/03/23 Ciprofloxacin HCl [Cipro] 500 mg PO BID 7 Days #14 tab 05/03/25 Acetaminophen Tab [Tylenol] 650 mg PO Q6HR PRN tab 07/26/24 Dicyclomine [Bentyl] 10 mg PO TID PRN 7 Days #21 capsule 09/22/24 Allergies Allergy/AdvReac Type Severity Reaction Status Date / Time latex Allergy Rash/Hives Verified 09/22/24 20:21 Review of Systems ROS Statement: Those systems with pertinent positive or pertinent negative responses have been documented in the HPI. Review of Systems: CONST: Denies fever EYES: Denies blurry vision ENT: Denies nasal congestion C/V: Denies Chest pain RESP: Denies shortness of breath GI: Endorses abdominal hernia pain : Denies dysuria SKIN: Denies rash. MSK: Denies joint pain. NEURO: Denies headache ROS Other: All systems not noted in ROS Statement are negative. Past Medical History Past Medical History: Blood Disorder, Coronary Artery Disease (CAD), Cancer, Chest Pain / Angina, COPD, GERD/Reflux, GI Bleed, Hyperlipidemia, Hypertension, Myocardial Infarction (UT), Osteoarthritis (OA), Prostate Disorder Additional Past Medical History / Comment(s): has a bad valve, (hx of mrsa on valve [facility]) mrsa went throughout body affected many things per spouse. hx prostate cancer 2022- radiation tx; has trouble with rt hand, hx diverticulitis, hernia, anemia Last Myocardial Infarction Date:: 2008 History of Any Multi-Drug Resistant Organisms: MRSA Date of last positivie culture/infection: 2017 MDRO Source:: blood Past Surgical History: Appendectomy, Back Surgery, Bladder Surgery, Bowel Resection, Coronary Bypass/CABG, Heart Catheterization With Stent, Hernia Repair Additional Past Surgical History / Comment(s): 4-5 stents, triple bypass at 39yrs old, prostate bx, colon resection due to diverticulitis, diverticulitis ate into bladder - repaired Past Anesthesia/Blood Transfusion Reactions: No Reported Reaction Additional Past Anesthesia/Blood Transfusion Reaction / Comment(s): no problems with blood transfusions - recent transfusion for anemia Date of Last Stent Placement:: 2021 Past Psychological History: No Psychological Hx Reported Smoking Status: Former smoker - Past Family History Father Family Medical History: Coronary Artery Disease (CAD) Mother Family Medical History: Diabetes Mellitus Sister(s) Family Medical History: Diabetes Mellitus Brother(s) Family Medical History: Diabetes Mellitus General Exam - General Exam Comments Initial Comments: General: Appears in no acute distress. HEAD: Normal with no signs of head trauma. EYES: EOMI ENT: Hearing grossly intact, normal oropharynx. RESPIRATORY: Clear breath sounds bilaterally. No wheezes, rales, or rhonchi. C/V: Regular rate and rhythm. S1 and S2 auscultated, no edema, peripheral pulses 2+ and intact throughout ABD: Abdomen soft, nondistended. Tenderness to palpation in the midline, just superior to the umbilicus. Has a ventral hernia with incarcerated contents. No overlying skin changes. EXT: No obvious deformity SKIN: No rashes or lesions observed on exposed skin. NEURO: Alert and oriented x 4 Limitations: no limitations Course Vital Signs 09/22/24 09/22/24 20:18 22:09 Temperature 98.2 F Pulse Rate 92 75 Respiratory 22 18 Rate Blood Pressure 101/63 162/88 O2 Sat by Pulse 97 97 Oximetry Medical Decision Making - Medical Decision Making Was pt. sent in by a medical professional or institution (DOTTIE Quick, COATING MACHINE OPERATOR, urgent care, hospital, or half-way...) When possible be specific @ -No Did you speak to anyone other than the patient for history (EMS, parent, family, police, friend...)? What history was obtained from this source @ -No Did you review nursing and triage notes (agree or disagree)? Why? @ -I reviewed and agree with nursing and triage notes Were old charts reviewed (outside hosp., previous admission, EMS record, old EKG, old radiological studies, urgent care reports/EKG's, half-way records)? Report findings @ -No old charts were reviewed Differential Diagnosis (chest pain, altered mental status, abdominal pain women, abdominal pain men, vaginal bleeding, weakness, fever, dyspnea, syncope, headache, dizziness, GI bleed, back pain, seizure, CVA, palpatations, mental he alth, musculoskeletal)? @ -Incarcerated hernia, strangulated hernia, small bowel obstruction. This list is not all-inclusive. EKG interpreted by me (3pts min.). @ -None done X-rays interpreted by me (1pt min.). @ -KUB shows no obvious acute intra-abdominal process CT interpreted by me (1pt min.). @ -CT abdomen pelvis reveals a fat-containing ventral abdominal hernia with some mild inflammation around it. No necrotic process. No fluid collection. Various incidental findings present as well. U/S interpreted by me (1pt. min.). @ -None done What testing was considered but not performed or refused? (CT, X-rays, U/S, labs)? Why? @ -None What meds were considered but not given or refused? Why? @ -None Did you discuss the management of the patient with other professionals (professionals i.e. , PA, COATING MACHINE OPERATOR, lab, RT, psych nurse, nursing home social worker, bakery machine mechanic supervisor, teacher, chief technical officer, case reviewer)? Give summary @ -Discussed with Dr. Davis and reviewed imaging as well as lab workup. As the hernia only contains fat and patient's pain is under control with normal lab values, he believes it was appropriate for the patient to follow-up with him outpatient. I believe this is reasonable. Was smoking cessation discussed for >3mins.? @ -No Was critical care preformed (if so, how long)? @ -No Were there social determinants of health that impacted care today? How? (Homelessness, low income, unemployed, alcoholism, drug addiction, transportation, low edu. Level, literacy, decrease access to med. care, prison, rehab)? @ -No Was there de-escalation of care discussed even if they declined (Discuss DNR or withdrawal of care, Hospice)? DNR status @ -No What co-morbidities impacted this encounter? (DM, HTN, Smoking, COPD, CAD, Cancer, CVA, ARF, Chemo, Hep., AIDS, mental health diagnosis, sleep apnea, morbid obesity)? @ -None Was patient admitted / discharged? Hospital course, mention meds given and route, prescriptions, significant lab abnormalities, going to OR and other pertinent info. @ -Based on patient's presentation physical exam, presents emergency department complaining of hernia pain. Does have some incarcerated contents. Patient is still passing gas and has had a bowel movement 2 days ago which is somewhat typical for him. He has no other acute complaints at this time. States normally it is easily reducible. Does follow-up with Dr. villalpando. Vitals are within acceptable limits. Workup started in triage. Patient given IV fluids, IV analgesia medications and we will obtain a CT. Patient was in agreement this plan. Laboratory studies remarkable for no leukocytosis. Lactic acid within normal limits. Patient has elevated BUN and creatinine in the setting of CKD. Patient was given 1 L fluid bolus. KUB negative for any obvious acute process. CT abdomen pelvis reveals a fat-containing hernia with some surrounding mild inflammatory changes but no obvious acute infection. No evidence of incarcerated intestines. Multiple attempts were made to reduce the patient's fat-containing hernia. Patient was placed in Trendelenburg and given multiple rounds of analgesia medications. Unsuccessful reduction. At this time I discussed that this the hernia only contains fat, and patient's pain is minimal he states at worst a 2 out of 10 but if there is no pressure on it he is not in any pain, I believe it is safe for him to be discharged home but we will reach out to his surgeon at this time. The surgeon is being covered by another member of his group, Dr. Davis. I spoke with Dr. Davis about the results and the laboratory values. He was in agreement that patient can be discharged home and follow-up in the office for outpatient management. He will be discharged home with analgesic medications. Strict return precautions discussed. Dr. Davis in the office on Friday. I will provide the patient with a prescription for Bentyl. I instructed the patient to follow up with their PCP in the next 1-3 days. I provided contact information for follow up with Dr. Davis. I explained that the patient should return to the emergency department if they experience any worsening symptoms. Strict return precautions were discussed with the patient. The patient expressed understanding of these instructions. I answered all questions that the patient had. The patient was discharged home in good condition with their prescriptions and follow up information. Undiagnosed new problem with uncertain prognosis? @ -No Drug Therapy requiring intensive monitoring for toxicity (Heparin, Nitro, Insulin, Cardizem)? @ -No Were any procedures done? @ -No Diagnosis/symptom? @ -Ventral wall hernia, fat-containing hernia Acute, or Chronic, or Acute on Chronic? @ -Acute Uncomplicated (without systemic symptoms) or Complicated (systemic symptoms)? @ -Uncomplicated Side effects of treatment? @ -No Exacerbation, Progression, or Severe Exacerbation? @ -No Poses a threat to life or bodily function? How? (Chest pain, USA, UT, pneumonia, PE, COPD, DKA, ARF, appy, cholecystitis, CVA, Diverticulitis, Homicidal, Suicidal, threat to staff... and all critical care pts) @ -Unlikely at this time - Lab Data Result diagrams: 09/22/24 20:38 09/22/24 20:38 Lab Results 09/22/24 09/22/24 09/22/24 Range/Units 20:38 20:38 21:19 WBC 7.86 (4.50-10.00) 10*3/uL RBC 3.52 L (4.40-5.60) 10*6/uL Hgb 12.0 L (13.0-17.0) g/dL Hct 35.4 L (39.6-50.0) % MCV 100.6 H (80.0-97.0) fL MCH 34.1 H (27.0-32.0) pg MCHC 33.9 (32.0-37.0) g/dL Plt Count 231 (140-440) 10*3/uL MPV 10.9 (9.5-12.2) fL Immature Gran % (Auto) 0.4 % Neutrophils % 59.4 % Lymphocytes % 25.7 % Monocytes % 12.0 % Eosinophils % 2.0 % Basophils % 0.5 % Immature Gran # 0.03 (0.00-0.04) 10*3/uL Neutrophils # 4.67 (1.80-7.70) 10*3/uL Lymphocytes # 2.02 (0.90-5.00) 10*3/uL Monocytes # 0.94 (0.20-1.00) 10*3/uL Eosinophils # 0.16 (0.04-0.35) 10*3/uL Basophils # 0.04 (0.00-0.10) 10*3/uL Sodium 144 (137-145) mmol/L Potassium 4.4 (3.5-5.1) mmol/L Chloride 110 H (98-107) mmol/L Carbon Dioxide 23 (22-30) mmol/L Anion Gap 11 mmol/L BUN 29 H (9-20) mg/dL Creatinine 1.92 H (0.66-1.25) mg/dL Est GFR (CKD-EPI)AfAm 38 (>60 ml/min/1.73 sqM) Est GFR (CKD-EPI)NonAf 32 (>60 ml/min/1.73 sqM) Glucose 114 H (74-99) mg/dL Plasma Lactic Acid Chung 1.6 (0.7-2.0) mmol/L Calcium 9.5 (8.4-10.2) mg/dL Total Bilirubin 0.6 (0.2-1.3) mg/dL AST 25 (17-59) U/L ALT 20 (4-49) U/L Alkaline Phosphatase 59 (38-126) U/L Total Protein 6.9 (6.3-8.2) g/dL Albumin 3.9 (3.5-5.0) g/dL Amylase 36 (30-110) U/L Lipase 13 L (23-300) U/L Disposition Clinical Impression: Hernia Narrative: fat-containing hernia Disposition: HOME SELF-CARE Condition: Good Instructions (If sedation given, give patient instructions): Ventral Hernia (ED) Additional Instructions: You presented today with an fat-containing anterior abdominal wall hernia. No evidence of intestines in the hernia on imaging and workup. Workup otherwise unremarkable. Your pain was under control in the the department. After discussing with Dr. Davis, the on-call surgeon with the group that you are familiar with he believes it is safe for you to follow-up with him next week. He is in the office on FridaySeptember 28. In the meantime, if any worsening symptoms occur such as worsening pain, nausea or vomiting, constipation, you can return to the ER for evaluation. Prescriptions: Dicyclomine [Bentyl] 10 mg PO TID PRN 7 Days #21 capsule PRN Reason: Pain Is patient prescribed a controlled substance at d/c from ED?: No Referrals: Yara Sawant MD [Primary Care Provider] - 1-2 days Gricelda Davis DO [Doctor of Osteopathic Medicine] - 1-2 days Time of Disposition: 22:59
[2024-09-22] MEDS: ACET/COD 300 MG/30 MG STARTER PACK 6 TAB BTL PO STA (23:26)
[2024-09-22 23:28] VITALS: BP 158/82; PULSE 70; TEMP 97.8
== END 2024-09-22 23:33 | disposition home or self-care (01) ==
LOC: EC 20:11
DX: K43.9 Ventral hernia without obstruction or gangrene (principal); Z87.891 Personal history of nicotine dependence; Z91.040 Latex allergy status
CPT/HCPCS: 36415; 80053; 82150; 83605; 83690; 85025; 74018; 74176; 99284; 96374; 96376; 96361; J2270